=== PATIENT | male | born 1945 | race Caucasian/White ===

== ENCOUNTER 2021-08-17 17:52 | Observation (INO) | payer MEDICARE ==
[2021-08-17] MEDS ORDERED: DUONEB 0.5-3 MG/3 ml Neb IH ONE ×2 (18:37→18:54)
--- NOTE | 2021-08-17 19:03 | ERPHSYRPT ---
- History of Present Illness Time Seen by Provider: 08/17/21 17:58 Source: patient Exam Limitations: no limitations Patient Subjective Stated Complaint: pt co gradual sob for last 2 days, he has surgery on monday for right total knee. Triage Nursing Assessment: pt alert, arrived oer wc, resp labored with excertion, face mask in place, has strei strips to right right incsion well approximated no reddness , has swelling and brusisng to right knee, Physician History: 75 years old male with history of heart transplant, pacemaker placement, right TKA almost 10 days ago on Xarelto presented to the ER with increasing difficulty breathing for the last 2 days especially with activity and to some extent even fasting. Complaining of generalized chest tightness without any pain. Has minimal nonproductive cough. Also reports 8 to 10 pound weight gain in the last week and a half despite taking Lasix. Patient also has been doing exercise and complaint of pain and soreness in the right lower extremity but denies any worsening of swelling but what he has since surgery. He is on Xarelto almost total knee arthroplasty No fever or chills reported. Timing/Duration: day(s) (2), gradual onset, worse Activities at Onset: activity Severity of Dyspnea-Max: moderate Severity of Dyspnea-Current: moderate Possible Cause: unknown cause Modifying Factors: Improves With: rest. Worsens With: coughing, deep breath, exertion Associated Symptoms: cough, wheezing, weakness, leg swelling, painful breathing, tightness, No chest pain/discomfort Allergies/Adverse Reactions: No Known Drug Allergies Allergy (Unverified 08/17/21 18:04) Home Medications: Atorvastatin Calcium 1 ea DAILY 08/17/21 [History] Carvedilol 6.25 mg [Coreg 6.25 MG] 1 ea DAILY 08/17/21 [History] Docusate Sodium 100 mg [Colace 100 MG] 1 ea DAILY 08/17/21 [History] Ferrous Sulfate 1 ea DAILY 08/17/21 [History] Gabapentin 300 mg [Neurontin 300 mg] 1 ea BID 08/17/21 [History] Hydrocodone/Acetaminophen [Hydrocodone-Acetamin 10-325 mg] 1 ea DAILY 08/17/21 [History] Mycophenolate Mofetil [Cellcept] 1 ea DAILY 08/17/21 [History] Oxycodone HCl [Oxycodone HCl ER] 1 ea TID 08/17/21 [History] Prednisone 5 mg [Deltasone 5 mg] 1 ea DAILY 08/17/21 [History] Rivaroxaban 10 mg Tablet [Xarelto 10 mg Tablet] 1 ea DAILY 08/17/21 [History] Sacubitril/Valsartan [Entresto 49 mg-51 mg Tablet] 1 ea DAILY 08/17/21 [History] Hx Influenza Vaccination/Date Given: Yes Hx Pneumococcal Vaccination/Date Given: Yes Immunizations Up to Date: Yes Travel Risk - International Travel Have you traveled outside of the country in past 3 weeks: No - Coronavirus Screening Are you exhibiting any of the following symptoms?: No Close contact with a COVID-19 positive Pt in past 14-21 Days: No - Vaccine Status Have you recieved a Covid-19 vaccination: Yes [employer]: Moderna - Vaccination Dates Date of 2cond Vaccination (if applicable): november 2020 - Review of Systems Constitutional: Fatigue, Weakness Eyes: No Symptoms Ears, Nose, & Throat: No Symptoms Respiratory: Cough, Dyspnea, Dyspnea on Exertion (PUGA) Cardiac: No Symptoms Abdominal/Gastrointestinal: No Symptoms Genitourinary Symptoms: No Symptoms Musculoskeletal: Arthralgias, Joint Pain Skin: No Symptoms Neurological: No Symptoms Psychological: No Symptoms Endocrine: No Symptoms Hematologic/Lymphatic: No Symptoms Immunological/Allergic: No Symptoms - Past Medical History Pertinent Past Medical History: Yes Neurological History: TIA Cardiac History: Coronary Artery Disease, Deep Vein Thrombosis, Myocardial Infarction (ME) Musculoskeletal History: Arthritis GI Medical History: GERD - Past Surgical History Past Surgical History: Yes Cardiac: Pacemaker Gastrointestinal: Cholecystectomy Musculoskeletal: Orthopedic Surgery Other Surgical History: right knee , heart transplant 2008-[facility] - Social History Smoking Status: Former smoker How long have you smoked: 2006 Exposure to second hand smoke: No Drug Use: none Patient Lives Alone: No - Nursing Vital Signs Nursing Vital Signs: Initial Vital Signs Pulse Rate 107 H 08/17/21 17:55 Respiratory Rate 30 H 08/17/21 17:55 Blood Pressure 176/102 08/17/21 17:55 O2 Sat by Pulse Oximetry 94 L 08/17/21 17:55 Pain Scale Pain Intensity 2 - Physical Exam General Appearance: no apparent distress, alert Eye Exam: PERRL/EOMI, eyes nml inspection Ears, Nose, Throat Exam: hearing grossly normal, pharyngeal erythema Neck Exam: normal inspection, supple, full range of motion Respiratory Exam: diminished breath sounds, accessory muscle use, wheezing, No chest tenderness Cardiovascular/Chest Exam: normal heart sounds, regular rate/rhythm, edema Abdominal/Gastrointestinal Exam: soft, normal bowel sounds, No tenderness Extremity Exam: swelling (Right knee total arthroplasty with Steri-Strips well applied. Appropriate tenderness around knee. Minimal tenderness of thigh and no tenderness of calf), joint swelling, No matt's sign Neurologic Exam: alert, oriented x 3, cooperative Skin Exam: normal color SpO2 Interpretation: normal SpO2: 95 O2 Delivery: Room Air - Course EKG Interpreted by Me: RATE, Left Brick Deviation, Non-specific ST Changes, Other (Biventricular paced rhythm) Ordered Tests: Active Orders 24 hr Category Date Time Status Senior Product Development Manager STAT Care 08/17/21 18:38 Active EKG-ER Only STAT Care 08/17/21 18:37 Active CHEST 1 VIEW (PORTABLE) Stat Exams 08/17/21 18:37 Taken BLOOD CULTURE Stat Lab 08/17/21 19:20 Ordered CBC W DIFF Stat Lab 08/17/21 19:20 Completed CMP Stat Lab 08/17/21 19:20 Completed Lactic Acid Stat Lab 08/17/21 18:58 Completed MAGNESIUM Stat Lab 08/17/21 19:20 Completed NT PRO BNP Stat Lab 08/17/21 19:20 Completed TROPONIN Q3H Lab 08/17/21 18:45 Completed TROPONIN Q3H Lab 08/17/21 21:45 Ordered TROPONIN Q3H Lab 08/18/21 00:45 Ordered TROPONIN Q3H Lab 08/18/21 03:45 Ordered TROPONIN Q3H Lab 08/18/21 06:45 Ordered UA W/RFX UR CULTURE Stat Lab 08/17/21 19:17 Completed Respiratory Therapy Assessment DAILY RT 08/17/21 19:03 Active Medication Summary Discontinued Medications Generic Name Dose Route Start Last Admin Trade Name Freq PRN Reason Stop Dose Admin Albuterol/Ipratropium 3 ml 08/17/21 18:37 08/17/21 19:02 Ipratropium/Albuterol Sulfate 3 Ml Ampul.Neb IH 08/17/21 18:38 3 ml STAT ONE Administration Albuterol/Ipratropium Confirm 08/17/21 18:54 Ipratropium/Albuterol Sulfate 3 Ml Ampul.Neb Administered 08/17/21 18:55 Dose 3 ml IH .STK-MED ONE Furosemide 60 mg 08/17/21 21:05 Furosemide 40 Mg/4 Ml Vial IV 08/17/21 21:06 STAT ONE Furosemide Confirm 08/17/21 21:09 Furosemide 40 Mg/4 Ml Vial Administered 08/17/21 21:10 Dose 80 mg .ROUTE .STK-MED ONE Lab/Rad Data: Laboratory Result Diagrams 08/17/21 19:20 08/17/21 19:20 Laboratory Results 08/17/21 08/17/21 08/17/21 Range/Units 19:20 19:20 19:17 WBC 9.7 (4.0-10.5) K/mm3 RBC 3.86 L (4.1-5.6) M/mm3 Hgb 10.6 L (12.5-18.0) gm/dl Hct 34.0 L (42-50) % MCV 88.1 (78-100) fl MCH 27.5 (26-32) pg MCHC 31.2 L (32-36) g/dl RDW 16.2 H (11.5-14.0) % Plt Count 299 (150-450) K/mm3 MPV 9.4 (7.5-11.0) fl Gran % 75.9 H (36.0-66.0) % Eos # (Auto) 0.07 (0-0.5) Absolute Lymphs (auto) 1.15 (1.0-4.6) Absolute Monos (auto) 1.10 (0.0-1.3) Lymphocytes % 11.9 L (24.0-44.0) % Monocytes % 11.4 (0.0-12.0) % Eosinophils % 0.7 (0.00-5.0) % Basophils % 0.1 (0.0-0.4) % Absolute Granulocytes 7.33 H (1.4-6.9) Basophils # 0.01 (0-0.4) Sodium 134 L (137-145) mmol/L Potassium 4.8 (3.5-5.1) mmol/L Chloride 98 (98-107) mmol/L Carbon Dioxide 29 (22-30) mmol/L Anion Gap 11.9 (5-15) MEQ/L BUN 23 H (9-20) mg/dL Creatinine 1.34 H (0.66-1.25) mg/dL Estimated GFR 55.4 ML/MIN Glucose 103 (74-106) mg/dL Lactic Acid (0.4-2.0) Calcium 8.6 (8.4-10.2) mg/dL Magnesium 1.4 L (1.6-2.3) mg/dL Total Bilirubin 0.90 (0.2-1.3) mg/dL AST 22 (17-59) U/L ALT 22 (0-50) U/L Alkaline Phosphatase 189 H (38-126) U/L Troponin I (0.000-0.034) ng/mL NT-Pro-B Natriuret Pep 11749 H (0-900) pg/mL Serum Total Protein 5.8 L (6.3-8.2) g/dL Albumin 3.3 L (3.5-5.0) g/dL Urine Color YELLOW (YELLOW) Urine Appearance CLEAR (CLEAR) Urine pH 7.0 (5-6) Ur Specific [place] 1.009 (1.005-1.025) Urine Protein NEGATIVE (Negative) Urine Ketones NEGATIVE (NEGATIVE) Urine Blood SMALL (0-5) Be/ul Urine Nitrite NEGATIVE (NEGATIVE) Urine Bilirubin NEGATIVE (NEGATIVE) Urine Urobilinogen NEGATIVE (0-1) mg/dL Ur Leukocyte Esterase NEGATIVE (NEGATIVE) Urine WBC (Auto) NONE (0-5) /HPF Urine RBC (Auto) 0-2 (0-2) /HPF U Epithel Cells (Auto) NONE (FEW) /HPF Urine Bacteria (Auto) NONE (NEGATIVE) /HPF Urine Culture Reflexed NO (NO) Urine Glucose NEGATIVE (NEGATIVE) mg/dL 08/17/21 08/17/21 Range/Units 18:58 18:45 WBC (4.0-10.5) K/mm3 RBC (4.1-5.6) M/mm3 Hgb (12.5-18.0) gm/dl Hct (42-50) % MCV (78-100) fl MCH (26-32) pg MCHC (32-36) g/dl RDW (11.5-14.0) % Plt Count (150-450) K/mm3 MPV (7.5-11.0) fl Gran % (36.0-66.0) % Eos # (Auto) (0-0.5) Absolute Lymphs (auto) (1.0-4.6) Absolute Monos (auto) (0.0-1.3) Lymphocytes % (24.0-44.0) % Monocytes % (0.0-12.0) % Eosinophils % (0.00-5.0) % Basophils % (0.0-0.4) % Absolute Granulocytes (1.4-6.9) Basophils # (0-0.4) Sodium (137-145) mmol/L Potassium (3.5-5.1) mmol/L Chloride (98-107) mmol/L Carbon Dioxide (22-30) mmol/L Anion Gap (5-15) MEQ/L BUN (9-20) mg/dL Creatinine (0.66-1.25) mg/dL Estimated GFR ML/MIN Glucose (74-106) mg/dL Lactic Acid 0.7 (0.4-2.0) Calcium (8.4-10.2) mg/dL Magnesium (1.6-2.3) mg/dL Total Bilirubin (0.2-1.3) mg/dL AST (17-59) U/L ALT (0-50) U/L Alkaline Phosphatase (38-126) U/L Troponin I < 0.012 (0.000-0.034) ng/mL NT-Pro-B Natriuret Pep (0-900) pg/mL Serum Total Protein (6.3-8.2) g/dL Albumin (3.5-5.0) g/dL Urine Color (YELLOW) Urine Appearance (CLEAR) Urine pH (5-6) Ur Specific [place] (1.005-1.025) Urine Protein (Negative) Urine Ketones (NEGATIVE) Urine Blood (0-5) Be/ul Urine Nitrite (NEGATIVE) Urine Bilirubin (NEGATIVE) Urine Urobilinogen (0-1) mg/dL Ur Leukocyte Esterase (NEGATIVE) Urine WBC (Auto) (0-5) /HPF Urine RBC (Auto) (0-2) /HPF U Epithel Cells (Auto) (FEW) /HPF Urine Bacteria (Auto) (NEGATIVE) /HPF Urine Culture Reflexed (NO) Urine Glucose (NEGATIVE) mg/dL - Progress Progress: improved Air Movement: good Progress Note: 08/17/21 21:47 75 years old is evaluated for increasing shortness of breath lately and weight gain. Patient was tachypneic with some wheezing and crackles on presentation, given breathing treatment and Lasix, on reevaluation feeling much better. Chest x-ray showed some congestion but no acute infiltrative process per preliminary report. EKG showed paced rhythm and initial troponins are negative but has markedly elevated BNP. I believe patient is volume overloaded, I have discussed with Dr. Guzman at cardiac transplant team, reviewed history, work-up, recommended diuresing overnight and reevaluation in the morning and if patient f eeling better can be discharged and they will arrange prompt outpatient follow- up. Patient is taking Xarelto as scheduled and I believe shortness of breath is more of a CHF exacerbation not PE. We will continue with Xarelto. Discussed with Dr. Mendez, reviewed history, work-up in ICU transplant team recommendation and patient is accepted for admission. Blood Culture(s) Obtained: No Antibiotics given: No Discussed with : Freddy, Other ([facility] transplant) Will see patient in: hospital (observation) Counseled pt/family regarding: lab results, diagnosis, rad results - Departure Departure Disposition: Observation Clinical Impression: Acute exacerbation of CHF (congestive heart failure) Condition: Stable Critical Care Time: No Referrals: Provider,Unknown [Primary Care Provider] - Follow up/PCP as directed Instructions: Heart Failure
[2021-08-17 19:29] LABS: Absolute Neutrophil Ct (ANC) 7.33 (1.4-6.9); BASOPHIL % 0.1 % (0.0-0.4); Basophil (Absolute #) 0.01 (0-0.4); Eosinophil % 0.7 % (0.00-5.0); Eosinophil (Absolute #) 0.07 (0-0.5); Hemoglobin 10.6 gm/dl (12.5-18.0); Lymphocyte (Absolute #) 1.15 (1.0-4.6); Lymphocytes % 11.9 % (24.0-44.0); Mean Cell Volume 88.1 fl (78-100); Mean Corpuscular Hemoglobin 27.5 pg (26-32); Mean Corpuscular Hgb Concent. 31.2 g/dl (32-36); Mean Platelet Volume 9.4 fl (7.5-11.0); Monocytes % 11.4 % (0.0-12.0); Neutrophil % 75.9 % (36.0-66.0); Platelet Count 299 K/mm3 (150-450); Red Blood Count 3.86 M/mm3 (4.1-5.6); Red Cell Distribution Width 16.2 % (11.5-14.0); White Blood Count 9.7 K/mm3 (4.0-10.5)
[2021-08-17 19:37] LABS: Appearance CLEAR (CLEAR); Bilirubin NEGATIVE (NEGATIVE); Blood SMALL Ery/ul (0-5); Glucose NEGATIVE (NEGATIVE); Ketones NEGATIVE (NEGATIVE); Leukocyte Esterase NEGATIVE (NEGATIVE); Nitrite NEGATIVE (NEGATIVE); Protein,Urine Dip NEGATIVE (Negative); RBC 0-2 /HPF (0-2); Specific Gravity 1.009 (1.005-1.025); Urobilinogen NEGATIVE mg/dL (0-1)
[2021-08-17 20:04] LABS: ALBUMIN 3.3 g/dL (3.5-5.0); ANION GAP 11.9 MEQ/L (5-15); BILIRUBIN,TOTAL 0.9 mg/dL (0.2-1.3); Calcium 8.6 mg/dL (8.4-10.2); Creatinine 1 1.34 mg/dL (0.66-1.25); EST GLOMERULAR FILTRATION RATE 55.4 ML/MIN; MAGNESIUM 1.4 mg/dL (1.6-2.3); Potassium 4.8 mmol/L (3.5-5.1); Total Protein 5.8 g/dL (6.3-8.2)
[2021-08-17] MEDS ORDERED: Lasix 40 MG/4 ML IV ONE (21:05)
[2021-08-17] MEDS ORDERED: Lasix 40 MG/4 ML ONE (21:09)
[2021-08-17 23:13] LABS: INFLUENZA A NEGATIVE (NEGATIVE); INFLUENZA B NEGATIVE (NEGATIVE); RESPIRATORY SYNCTIAL VIRUS NEGATIVE (Negative); SARS-CoV-2 Xpert Express NEGATIVE (NEGATIVE)
[2021-08-18] MEDS ORDERED: Lasix 40 MG/4 ML IV SCH ×2 (01:13→10:00)
[2021-08-18] MEDS ORDERED: Zofran 4 MG/2 ML VIAL IV PRN (01:13)
[2021-08-18] MEDS ORDERED: DUONEB 0.5-3 MG/3 ml Neb IH SCH (01:13)
[2021-08-18] MEDS ORDERED: MORPHINE SULFATE 2 MG INJ IV PRN (01:13)
[2021-08-18] MEDS: TYLENOL 325 MG PO PRN ×2 (02:22→07:44)
[2021-08-18 05:03] LABS: ALBUMIN 3.3 g/dL (3.5-5.0); ANION GAP 13.1 MEQ/L (5-15); BILIRUBIN,TOTAL 1.2 mg/dL (0.2-1.3); Calcium 8.5 mg/dL (8.4-10.2); Creatinine 1 1.35 mg/dL (0.66-1.25); EST GLOMERULAR FILTRATION RATE 54.9 ML/MIN; Potassium 4.1 mmol/L (3.5-5.1); Total Protein 5.9 g/dL (6.3-8.2)
[2021-08-18 05:07] LABS: Absolute Neutrophil Ct (ANC) 7.91 (1.4-6.9); BASOPHIL % 0.2 % (0.0-0.4); Basophil (Absolute #) 0.02 (0-0.4); Eosinophil % 1.1 % (0.00-5.0); Eosinophil (Absolute #) 0.11 (0-0.5); Hematocrit 34.8 % (42-50); Lymphocyte (Absolute #) 1.12 (1.0-4.6); Lymphocytes % 10.8 % (24.0-44.0); Mean Cell Volume 87.2 fl (78-100); Mean Corpuscular Hemoglobin 27.6 pg (26-32); Mean Corpuscular Hgb Concent. 31.6 g/dl (32-36); Mean Platelet Volume 9.4 fl (7.5-11.0); Monocyte (Absolute #) 1.21 (0.0-1.3); Monocytes % 11.7 % (0.0-12.0); Neutrophil % 76.2 % (36.0-66.0); Platelet Count 329 K/mm3 (150-450); Red Blood Count 3.99 M/mm3 (4.1-5.6); Red Cell Distribution Width 16.3 % (11.5-14.0); White Blood Count 10.4 K/mm3 (4.0-10.5)
[2021-08-18 05:15] LABS: NT PRO BNP 16300 pg/mL (0-900); TROPONIN < 0.012 ng/mL (0.000-0.034)
--- NOTE | 2021-08-18 08:42 | XRAY ---
Indication: Short of breath and weakness 3 days. Comparison: May 23, 2011. Portable chest demonstrates new right AICD partially obscuring underlying lung. Stable COPD, tiny left lung calcified granuloma, and CABG. Remaining heart and lungs unremarkable. Bony thorax intact again with osteopenia, degenerative changes, and old left 9 rib fracture.
--- NOTE | 2021-08-18 08:52 | PCM.SSS ---
History of Present Illness - Chief Complaint Chief Complaint: CHF History of Present Illness: is a 75 year old male pt of Dr. Valentino in [place] with PMHx heart transplant due to CAD and pacemaker who was admitted last night for CHF exacerbation. Pt had R total knee replacement [address] Coe at the [facility] and he says his breathing has been worse ever since. In the ER last night he complained of 2d of gradually worsening shortness of breath, with chest tightness and minimal cough. He c/o 8-10 lb weight gain recently despite po lasix. He denied any increase in edema of the R leg. Has been on xarelto since the surgery. He was given IV lasix 40mg in the ER and has it scheduled BID. Dr. Thomason in ER spoke wiht Dr. Guzman [facility], and since there were no beds in [place] or at [facility], it was determined that the pt would stay here, diurese overnight, re-evaluate in the morning and check in with the transplant center again about close outpatient follow up (if pt feeling better). Pt's BNP was 16,100 on admission and is 16,300 this morning. WBC 10.4, Hgb 11.0, Plt 329. UA nl. His sodium is 133, was 134 at admission. potassium 4.1. His magnesium was 1.4 last night so that is pending this morning. eGFR is 54.9 this morning (was 55.4 at admission). Troponins have been negative x 4. Pt does feel better this morning, although not quite back to baseline. Denies chest tightness. He is not short of breath at rest or when up to the bathroom, but with bending or any exertion. Before his surgery, he could do yardwork albeit at an easy pace but without any shortness of breath. I have called the cardiac transplant team and am awaiting a callback from Dr. Christine Abel. If he agrees with discharging the pt to home, will discharge today with followup per transplant team. - Review of Systems Constitutional: Weakness (with doing knee exercises) Respiratory: Cough, Short Of Breath Cardiac: Chest Pain (resolved), Edema (improved on RLE) Abdominal/Gastrointestinal: Appetite Changes (decreased po intake), Other (heartburn since surgery 11d ago) All Other Systems: Reviewed and Negative Medications & Allergies Home Medications: Home Medication List Carvedilol 6.25 mg [Coreg 6.25 MG] 6.25 mg PO BID 08/17/21 [History Confirmed 08/18/21] Docusate Sodium 100 mg [Colace 100 MG] 100 mg PO DAILY 08/17/21 [History Confirmed 08/18/21] Ferrous Sulfate 325 mg PO DAILY 08/17/21 [History Confirmed 08/18/21] Gabapentin 300 mg [Neurontin 300 mg] 300 mg PO BID 08/17/21 [History Confirmed 08/18/21] Hydrocodone/Acetaminophen [Hydrocodone-Acetamin 10-325 mg] 1 - 2 tab PO Q6HPRN PRN 08/17/21 [History Confirmed 08/18/21] Mycophenolate Mofetil [Cellcept] 250 mg BID 08/17/21 [History Confirmed 08/18/21] Oxycodone HCl [Oxycodone HCl ER] 1 tab PO Q8HPRN PRN 08/17/21 [History Confirmed 08/18/21] Prednisone 5 mg [Deltasone 5 mg] 5 mg PO DAILY 08/17/21 [History Confirmed 08/18/21] Rivaroxaban 10 mg Tablet [Xarelto 10 mg Tablet] 10 mg PO DAILY 08/17/21 [History Confirmed 08/18/21] Sacubitril/Valsartan [Entresto 49 mg-51 mg Tablet] 1 tab PO BID 08/17/21 [History Confirmed 08/18/21] Allergies/Adverse Reactions: Allergies Allergy/AdvReac Type Severity Reaction Status Date / Time No Known Drug Allergies Allergy Unverified 08/17/21 18:04 - Past Medical History Past Medical History: Yes Neurological History: TIA ENT History: Cataracts Cardiac History: Arrhythmia, Congestive Heart Failure, Coronary Artery Disease, Deep Vein Thrombosis, Myocardial Infarction (CA) Respiratory History: CHF, COPD Endocrine Medical History: No Pertinent History Musculoskelatal History: Arthritis GI Medical History: GERD, Irritable Bowel History: No Pertinent History Pyscho-Social History: No Pertinent History - Past Surgical History Past Surgical History: Yes Neuro Surgical History: No Pertinent History Cardiac History: Internal Defibrillator, Pacemaker, Other Respiratory Surgery: No Pertinent History GI Surgical History: Cholecystectomy Genitourinary Surgical Hx: No Pertinent History Musculskeletal Surgical Hx: Orthopedic Surgery Male Surgical History: No Pertinent History Other Surgical History: right knee total replacement Aug 2021, Left knee replacement 2016, heart transplant 2007-[facility]. Right hip replaced 2017 - Social History Smoking Status: Former smoker How long have you smoked: 2006 Exposure to second hand smoke: No Alcohol: Rarely Drug Use: none - Physical Exam Vital Signs: Vital Signs - 24 hr Temp Pulse Resp BP Pulse Ox 08/18/21 07:42 97.5 F 93 H 18 155/81 91 L 08/18/21 04:00 97.7 F 96 H 16 159/78 95 08/18/21 01:51 98.6 F 96 H 17 177/90 95 08/18/21 00:12 97 H 16 186/113 96 08/17/21 21:50 95 08/17/21 21:07 96 H 18 177/99 97 08/17/21 19:30 91 H 18 182/105 95 08/17/21 19:04 89 20 97 08/17/21 18:53 88 18 180/103 95 08/17/21 17:55 107 H 30 H 176/102 94 L General Appearance: no apparent distress, obese Neurologic Exam: alert, oriented x 3, cooperative Eye Exam: eyes nml inspection Ears, Nose, Throat Exam: moist mucous membranes Neck Exam: normal inspection, non-tender, No lymphadenopathy Respiratory Exam: normal breath sounds, lungs clear, No crackles/rales, No rhonchi, No wheezing Cardiovascular Exam: regular rate/rhythm, No normal heart sounds (distant), No murmur Gastrointestinal/Abdomen Exam: soft, normal bowel sounds, No tenderness, No distention, No mass, No guarding, No rebound Extremity Exam: swelling (R knee; midline wound is well approximated and healing, w/o erythema or exudate. steri strips in place. inferior to knee there is scattere bruising) Skin Exam: warm, dry, No rash Results - Labs Lab/Micro Results: Lab Results-Last 24 Hours 08/17/21 08/17/21 08/17/21 Range/Units 18:45 18:58 19:17 WBC (4.0-10.5) K/mm3 RBC (4.1-5.6) M/mm3 Hgb (12.5-18.0) gm/dl Hct (42-50) % MCV (78-100) fl MCH (26-32) pg MCHC (32-36) g/dl RDW (11.5-14.0) % Plt Count (150-450) K/mm3 MPV (7.5-11.0) fl Gran % (36.0-66.0) % Eos # (Auto) (0-0.5) Absolute Lymphs (auto) (1.0-4.6) Absolute Monos (auto) (0.0-1.3) Lymphocytes % (24.0-44.0) % Monocytes % (0.0-12.0) % Eosinophils % (0.00-5.0) % Basophils % (0.0-0.4) % Absolute Granulocytes (1.4-6.9) Basophils # (0-0.4) Sodium (137-145) mmol/L Potassium (3.5-5.1) mmol/L Chloride (98-107) mmol/L Carbon Dioxide (22-30) mmol/L Anion Gap (5-15) MEQ/L BUN (9-20) mg/dL Creatinine (0.66-1.25) mg/dL Estimated GFR ML/MIN Glucose (74-106) mg/dL Lactic Acid 0.7 (0.4-2.0) Calcium (8.4-10.2) mg/dL Magnesium (1.6-2.3) mg/dL Total Bilirubin (0.2-1.3) mg/dL AST (17-59) U/L ALT (0-50) U/L Alkaline Phosphatase (38-126) U/L Troponin I < 0.012 (0.000-0.034) ng/mL NT-Pro-B Natriuret Pep (0-900) pg/mL Serum Total Protein (6.3-8.2) g/dL Albumin (3.5-5.0) g/dL Urine Color YELLOW (YELLOW) Urine Appearance CLEAR (CLEAR) Urine pH 7.0 (5-6) Ur Specific [place] 1.009 (1.005-1.025) Urine Protein NEGATIVE (Negative) Urine Ketones NEGATIVE (NEGATIVE) Urine Blood SMALL (0-5) Be/ul Urine Nitrite NEGATIVE (NEGATIVE) Urine Bilirubin NEGATIVE (NEGATIVE) Urine Urobilinogen NEGATIVE (0-1) mg/dL Ur Leukocyte Esterase NEGATIVE (NEGATIVE) Urine WBC (Auto) NONE (0-5) /HPF Urine RBC (Auto) 0-2 (0-2) /HPF U Epithel Cells (Auto) NONE (FEW) /HPF Urine Bacteria (Auto) NONE (NEGATIVE) /HPF Urine Culture Reflexed NO (NO) Urine Glucose NEGATIVE (NEGATIVE) mg/dL Influenza Type A Ag (NEGATIVE) Influenza Type B Ag (NEGATIVE) RSV (PCR) (Negative) SARS-CoV-2 (PCR) (NEGATIVE) 08/17/21 08/17/21 08/17/21 Range/Units 19:20 19:20 21:49 WBC 9.7 (4.0-10.5) K/mm3 RBC 3.86 L (4.1-5.6) M/mm3 Hgb 10.6 L (12.5-18.0) gm/dl Hct 34.0 L (42-50) % MCV 88.1 (78-100) fl MCH 27.5 (26-32) pg MCHC 31.2 L (32-36) g/dl RDW 16.2 H (11.5-14.0) % Plt Count 299 (150-450) K/mm3 MPV 9.4 (7.5-11.0) fl Gran % 75.9 H (36.0-66.0) % Eos # (Auto) 0.07 (0-0.5) Absolute Lymphs (auto) 1.15 (1.0-4.6) Absolute Monos (auto) 1.10 (0.0-1.3) Lymphocytes % 11.9 L (24.0-44.0) % Monocytes % 11.4 (0.0-12.0) % Eosinophils % 0.7 (0.00-5.0) % Basophils % 0.1 (0.0-0.4) % Absolute Granulocytes 7.33 H (1.4-6.9) Basophils # 0.01 (0-0.4) Sodium 134 L (137-145) mmol/L Potassium 4.8 (3.5-5.1) mmol/L Chloride 98 (98-107) mmol/L Carbon Dioxide 29 (22-30) mmol/L Anion Gap 11.9 (5-15) MEQ/L BUN 23 H (9-20) mg/dL Creatinine 1.34 H (0.66-1.25) mg/dL Estimated GFR 55.4 ML/MIN Glucose 103 (74-106) mg/dL Lactic Acid (0.4-2.0) Calcium 8.6 (8.4-10.2) mg/dL Magnesium 1.4 L (1.6-2.3) mg/dL Total Bilirubin 0.90 (0.2-1.3) mg/dL AST 22 (17-59) U/L ALT 22 (0-50) U/L Alkaline Phosphatase 189 H (38-126) U/L Troponin I < 0.012 (0.000-0.034) ng/mL NT-Pro-B Natriuret Pep 69193 H (0-900) pg/mL Serum Total Protein 5.8 L (6.3-8.2) g/dL Albumin 3.3 L (3.5-5.0) g/dL Urine Color (YELLOW) Urine Appearance (CLEAR) Urine pH (5-6) Ur Specific [place] (1.005-1.025) Urine Protein (Negative) Urine Ketones (NEGATIVE) Urine Blood (0-5) Be/ul Urine Nitrite (NEGATIVE) Urine Bilirubin (NEGATIVE) Urine Urobilinogen (0-1) mg/dL Ur Leukocyte Esterase (NEGATIVE) Urine WBC (Auto) (0-5) /HPF Urine RBC (Auto) (0-2) /HPF U Epithel Cells (Auto) (FEW) /HPF Urine Bacteria (Auto) (NEGATIVE) /HPF Urine Culture Reflexed (NO) Urine Glucose (NEGATIVE) mg/dL Influenza Type A Ag (NEGATIVE) Influenza Type B Ag (NEGATIVE) RSV (PCR) (Negative) SARS-CoV-2 (PCR) (NEGATIVE) 08/17/21 08/18/21 08/18/21 Range/Units 22:31 00:53 04:20 WBC (4.0-10.5) K/mm3 RBC (4.1-5.6) M/mm3 Hgb (12.5-18.0) gm/dl Hct (42-50) % MCV (78-100) fl MCH (26-32) pg MCHC (32-36) g/dl RDW (11.5-14.0) % Plt Count (150-450) K/mm3 MPV (7.5-11.0) fl Gran % (36.0-66.0) % Eos # (Auto) (0-0.5) Absolute Lymphs (auto) (1.0-4.6) Absolute Monos (auto) (0.0-1.3) Lymphocytes % (24.0-44.0) % Monocytes % (0.0-12.0) % Eosinophils % (0.00-5.0) % Basophils % (0.0-0.4) % Absolute Granulocytes (1.4-6.9) Basophils # (0-0.4) Sodium (137-145) mmol/L Potassium (3.5-5.1) mmol/L Chloride (98-107) mmol/L Carbon Dioxide (22-30) mmol/L Anion Gap (5-15) MEQ/L BUN (9-20) mg/dL Creatinine (0.66-1.25) mg/dL Estimated GFR ML/MIN Glucose (74-106) mg/dL Lactic Acid (0.4-2.0) Calcium (8.4-10.2) mg/dL Magnesium (1.6-2.3) mg/dL Total Bilirubin (0.2-1.3) mg/dL AST (17-59) U/L ALT (0-50) U/L Alkaline Phosphatase (38-126) U/L Troponin I < 0.012 < 0.012 (0.000-0.034) ng/mL NT-Pro-B Natriuret Pep 65449 H (0-900) pg/mL Serum Total Protein (6.3-8.2) g/dL Albumin (3.5-5.0) g/dL Urine Color (YELLOW) Urine Appearance (CLEAR) Urine pH (5-6) Ur Specific [place] (1.005-1.025) Urine Protein (Negative) Urine Ketones (NEGATIVE) Urine Blood (0-5) Be/ul Urine Nitrite (NEGATIVE) Urine Bilirubin (NEGATIVE) Urine Urobilinogen (0-1) mg/dL Ur Leukocyte Esterase (NEGATIVE) Urine WBC (Auto) (0-5) /HPF Urine RBC (Auto) (0-2) /HPF U Epithel Cells (Auto) (FEW) /HPF Urine Bacteria (Auto) (NEGATIVE) /HPF Urine Culture Reflexed (NO) Urine Glucose (NEGATIVE) mg/dL Influenza Type A Ag NEGATIVE (NEGATIVE) Influenza Type B Ag NEGATIVE (NEGATIVE) RSV (PCR) NEGATIVE (Negative) SARS-CoV-2 (PCR) NEGATIVE (NEGATIVE) 08/18/21 08/18/21 Range/Units 04:20 04:20 WBC 10.4 (4.0-10.5) K/mm3 RBC 3.99 L (4.1-5.6) M/mm3 Hgb 11.0 L (12.5-18.0) gm/dl Hct 34.8 L (42-50) % MCV 87.2 (78-100) fl MCH 27.6 (26-32) pg MCHC 31.6 L (32-36) g/dl RDW 16.3 H (11.5-14.0) % Plt Count 329 (150-450) K/mm3 MPV 9.4 (7.5-11.0) fl Gran % 76.2 H (36.0-66.0) % Eos # (Auto) 0.11 (0-0.5) Absolute Lymphs (auto) 1.12 (1.0-4.6) Absolute Monos (auto) 1.21 (0.0-1.3) Lymphocytes % 10.8 L (24.0-44.0) % Monocytes % 11.7 (0.0-12.0) % Eosinophils % 1.1 (0.00-5.0) % Basophils % 0.2 (0.0-0.4) % Absolute Granulocytes 7.91 H (1.4-6.9) Basophils # 0.02 (0-0.4) Sodium 133 L (137-145) mmol/L Potassium 4.1 (3.5-5.1) mmol/L Chloride 96 L (98-107) mmol/L Carbon Dioxide 28 (22-30) mmol/L Anion Gap 13.1 (5-15) MEQ/L BUN 22 H (9-20) mg/dL Creatinine 1.35 H (0.66-1.25) mg/dL Estimated GFR 54.9 ML/MIN Glucose 93 (74-106) mg/dL Lactic Acid (0.4-2.0) Calcium 8.5 (8.4-10.2) mg/dL Magnesium (1.6-2.3) mg/dL Total Bilirubin 1.20 (0.2-1.3) mg/dL AST 24 (17-59) U/L ALT 23 (0-50) U/L Alkaline Phosphatase 193 H (38-126) U/L Troponin I (0.000-0.034) ng/mL NT-Pro-B Natriuret Pep (0-900) pg/mL Serum Total Protein 5.9 L (6.3-8.2) g/dL Albumin 3.3 L (3.5-5.0) g/dL Urine Color (YELLOW) Urine Appearance (CLEAR) Urine pH (5-6) Ur Specific [place] (1.005-1.025) Urine Protein (Negative) Urine Ketones (NEGATIVE) Urine Blood (0-5) Be/ul Urine Nitrite (NEGATIVE) Urine Bilirubin (NEGATIVE) Urine Urobilinogen (0-1) mg/dL Ur Leukocyte Esterase (NEGATIVE) Urine WBC (Auto) (0-5) /HPF Urine RBC (Auto) (0-2) /HPF U Epithel Cells (Auto) (FEW) /HPF Urine Bacteria (Auto) (NEGATIVE) /HPF Urine Culture Reflexed (NO) Urine Glucose (NEGATIVE) mg/dL Influenza Type A Ag (NEGATIVE) Influenza Type B Ag (NEGATIVE) RSV (PCR) (Negative) SARS-CoV-2 (PCR) (NEGATIVE) - Radiology Impressions Radiology Exams & Impressions: Radiology Procedures Category Date Time Status CHEST 1 VIEW (PORTABLE) Stat Exams 08/17/21 18:37 Completed Assessment/Plan (1) Acute exacerbation of CHF (congestive heart failure) Current Visit: Yes Status: Acute Qualifiers: Heart failure type: unspecified Qualified Code(s): I50.9 - Heart failure, unspecified Assessment & Plan: Doing better after diuresing; not back to pre-surgical baseline. Will discuss with transplant surgeon and await guidance on further diuresis vs sending pt home with close outpatient followup with them. Code(s): I50.9 - HEART FAILURE, UNSPECIFIED (2) Status post total knee replacement, right Current Visit: Yes Status: Acute Assessment & Plan: Pt is 11d post op, on xarelto, seems stable Code(s): Z96.651 - PRESENCE OF RIGHT ARTIFICIAL KNEE JOINT (3) CAD (coronary artery disease) Current Visit: Yes Status: Chronic Qualifiers: [place] vs. transplanted heart: transplanted heart Associated angina: without angina Code(s): I25.10 - ATHSCL HEART DISEASE OF [place] CORONARY ARTERY W/O ANG PCTRS (4) Pacemaker Current Visit: Yes Status: Chronic Code(s): Z95.0 - PRESENCE OF CARDIAC PACEMAKER Hospital Summary - Hospital Course Hospital Course: Pt is 75 yo male with hx CAD and heart transplant, admitted for CHF exacerbation 10d s/p R total knee replacement. On xarelto. He was given 40mg IV lasix in ER and diuresed well overnight; feeling better although not back to his pre- surgical baseline. Case was discussed with transplant team at admission, and I am awaiting call from transplant team this morning to discuss disposition. - Vitals & Intake/Output Vital Signs: Vital Signs Temperature 97.5 F 08/18/21 07:42 Pulse Rate 93 H 08/18/21 07:42 Respiratory Rate 18 08/18/21 07:42 Blood Pressure 155/81 08/18/21 07:42 O2 Sat by Pulse Oximetry 91 L 08/18/21 07:42 Intake & Output: Intake & Output 08/15/21 08/16/21 08/17/21 08/18/21 11:59 11:59 11:59 11:59 Intake Total 260 Output Total 850 Balance -590 Weight 114.1 kg - Lab Result Diagrams: 08/18/21 04:20 08/18/21 04:20 Lab Results-Last 24 Hrs: Lab Results-Last 24 Hours 08/17/21 08/17/21 08/17/21 Range/Units 18:45 18:58 19:17 WBC (4.0-10.5) K/mm3 RBC (4.1-5.6) M/mm3 Hgb (12.5-18.0) gm/dl Hct (42-50) % MCV (78-100) fl MCH (26-32) pg MCHC (32-36) g/dl RDW (11.5-14.0) % Plt Count (150-450) K/mm3 MPV (7.5-11.0) fl Gran % (36.0-66.0) % Eos # (Auto) (0-0.5) Absolute Lymphs (auto) (1.0-4.6) Absolute Monos (auto) (0.0-1.3) Lymphocytes % (24.0-44.0) % Monocytes % (0.0-12.0) % Eosinophils % (0.00-5.0) % Basophils % (0.0-0.4) % Absolute Granulocytes (1.4-6.9) Basophils # (0-0.4) Sodium (137-145) mmol/L Potassium (3.5-5.1) mmol/L Chloride (98-107) mmol/L Carbon Dioxide (22-30) mmol/L Anion Gap (5-15) MEQ/L BUN (9-20) mg/dL Creatinine (0.66-1.25) mg/dL Estimated GFR ML/MIN Glucose (74-106) mg/dL Lactic Acid 0.7 (0.4-2.0) Calcium (8.4-10.2) mg/dL Magnesium (1.6-2.3) mg/dL Total Bilirubin (0.2-1.3) mg/dL AST (17-59) U/L ALT (0-50) U/L Alkaline Phosphatase (38-126) U/L Troponin I < 0.012 (0.000-0.034) ng/mL NT-Pro-B Natriuret Pep (0-900) pg/mL Serum Total Protein (6.3-8.2) g/dL Albumin (3.5-5.0) g/dL Urine Color YELLOW (YELLOW) Urine Appearance CLEAR (CLEAR) Urine pH 7.0 (5-6) Ur Specific [place] 1.009 (1.005-1.025) Urine Protein NEGATIVE (Negative) Urine Ketones NEGATIVE (NEGATIVE) Urine Blood SMALL (0-5) Be/ul Urine Nitrite NEGATIVE (NEGATIVE) Urine Bilirubin NEGATIVE (NEGATIVE) Urine Urobilinogen NEGATIVE (0-1) mg/dL Ur Leukocyte Esterase NEGATIVE (NEGATIVE) Urine WBC (Auto) NONE (0-5) /HPF Urine RBC (Auto) 0-2 (0-2) /HPF U Epithel Cells (Auto) NONE (FEW) /HPF Urine Bacteria (Auto) NONE (NEGATIVE) /HPF Urine Culture Reflexed NO (NO) Urine Glucose NEGATIVE (NEGATIVE) mg/dL Influenza Type A Ag (NEGATIVE) Influenza Type B Ag (NEGATIVE) RSV (PCR) (Negative) SARS-CoV-2 (PCR) (NEGATIVE) 08/17/21 08/17/21 08/17/21 Range/Units 19:20 19:20 21:49 WBC 9.7 (4.0-10.5) K/mm3 RBC 3.86 L (4.1-5.6) M/mm3 Hgb 10.6 L (12.5-18.0) gm/dl Hct 34.0 L (42-50) % MCV 88.1 (78-100) fl MCH 27.5 (26-32) pg MCHC 31.2 L (32-36) g/dl RDW 16.2 H (11.5-14.0) % Plt Count 299 (150-450) K/mm3 MPV 9.4 (7.5-11.0) fl Gran % 75.9 H (36.0-66.0) % Eos # (Auto) 0.07 (0-0.5) Absolute Lymphs (auto) 1.15 (1.0-4.6) Absolute Monos (auto) 1.10 (0.0-1.3) Lymphocytes % 11.9 L (24.0-44.0) % Monocytes % 11.4 (0.0-12.0) % Eosinophils % 0.7 (0.00-5.0) % Basophils % 0.1 (0.0-0.4) % Absolute Granulocytes 7.33 H (1.4-6.9) Basophils # 0.01 (0-0.4) Sodium 134 L (137-145) mmol/L Potassium 4.8 (3.5-5.1) mmol/L Chloride 98 (98-107) mmol/L Carbon Dioxide 29 (22-30) mmol/L Anion Gap 11.9 (5-15) MEQ/L BUN 23 H (9-20) mg/dL Creatinine 1.34 H (0.66-1.25) mg/dL Estimated GFR 55.4 ML/MIN Glucose 103 (74-106) mg/dL Lactic Acid (0.4-2.0) Calcium 8.6 (8.4-10.2) mg/dL Magnesium 1.4 L (1.6-2.3) mg/dL Total Bilirubin 0.90 (0.2-1.3) mg/dL AST 22 (17-59) U/L ALT 22 (0-50) U/L Alkaline Phosphatase 189 H (38-126) U/L Troponin I < 0.012 (0.000-0.034) ng/mL NT-Pro-B Natriuret Pep 05326 H (0-900) pg/mL Serum Total Protein 5.8 L (6.3-8.2) g/dL Albumin 3.3 L (3.5-5.0) g/dL Urine Color (YELLOW) Urine Appearance (CLEAR) Urine pH (5-6) Ur Specific [place] (1.005-1.025) Urine Protein (Negative) Urine Ketones (NEGATIVE) Urine Blood (0-5) Be/ul Urine Nitrite (NEGATIVE) Urine Bilirubin (NEGATIVE) Urine Urobilinogen (0-1) mg/dL Ur Leukocyte Esterase (NEGATIVE) Urine WBC (Auto) (0-5) /HPF Urine RBC (Auto) (0-2) /HPF U Epithel Cells (Auto) (FEW) /HPF Urine Bacteria (Auto) (NEGATIVE) /HPF Urine Culture Reflexed (NO) Urine Glucose (NEGATIVE) mg/dL Influenza Type A Ag (NEGATIVE) Influenza Type B Ag (NEGATIVE) RSV (PCR) (Negative) SARS-CoV-2 (PCR) (NEGATIVE) 08/17/21 08/18/21 08/18/21 Range/Units 22:31 00:53 04:20 WBC (4.0-10.5) K/mm3 RBC (4.1-5.6) M/mm3 Hgb (12.5-18.0) gm/dl Hct (42-50) % MCV (78-100) fl MCH (26-32) pg MCHC (32-36) g/dl RDW (11.5-14.0) % Plt Count (150-450) K/mm3 MPV (7.5-11.0) fl Gran % (36.0-66.0) % Eos # (Auto) (0-0.5) Absolute Lymphs (auto) (1.0-4.6) Absolute Monos (auto) (0.0-1.3) Lymphocytes % (24.0-44.0) % Monocytes % (0.0-12.0) % Eosinophils % (0.00-5.0) % Basophils % (0.0-0.4) % Absolute Granulocytes (1.4-6.9) Basophils # (0-0.4) Sodium (137-145) mmol/L Potassium (3.5-5.1) mmol/L Chloride (98-107) mmol/L Carbon Dioxide (22-30) mmol/L Anion Gap (5-15) MEQ/L BUN (9-20) mg/dL Creatinine (0.66-1.25) mg/dL Estimated GFR ML/MIN Glucose (74-106) mg/dL Lactic Acid (0.4-2.0) Calcium (8.4-10.2) mg/dL Magnesium (1.6-2.3) mg/dL Total Bilirubin (0.2-1.3) mg/dL AST (17-59) U/L ALT (0-50) U/L Alkaline Phosphatase (38-126) U/L Troponin I < 0.012 < 0.012 (0.000-0.034) ng/mL NT-Pro-B Natriuret Pep 42016 H (0-900) pg/mL Serum Total Protein (6.3-8.2) g/dL Albumin (3.5-5.0) g/dL Urine Color (YELLOW) Urine Appearance (CLEAR) Urine pH (5-6) Ur Specific [place] (1.005-1.025) Urine Protein (Negative) Urine Ketones (NEGATIVE) Urine Blood (0-5) Be/ul Urine Nitrite (NEGATIVE) Urine Bilirubin (NEGATIVE) Urine Urobilinogen (0-1) mg/dL Ur Leukocyte Esterase (NEGATIVE) Urine WBC (Auto) (0-5) /HPF Urine RBC (Auto) (0-2) /HPF U Epithel Cells (Auto) (FEW) /HPF Urine Bacteria (Auto) (NEGATIVE) /HPF Urine Culture Reflexed (NO) Urine Glucose (NEGATIVE) mg/dL Influenza Type A Ag NEGATIVE (NEGATIVE) Influenza Type B Ag NEGATIVE (NEGATIVE) RSV (PCR) NEGATIVE (Negative) SARS-CoV-2 (PCR) NEGATIVE (NEGATIVE) 08/18/21 08/18/21 Range/Units 04:20 04:20 WBC 10.4 (4.0-10.5) K/mm3 RBC 3.99 L (4.1-5.6) M/mm3 Hgb 11.0 L (12.5-18.0) gm/dl Hct 34.8 L (42-50) % MCV 87.2 (78-100) fl MCH 27.6 (26-32) pg MCHC 31.6 L (32-36) g/dl RDW 16.3 H (11.5-14.0) % Plt Count 329 (150-450) K/mm3 MPV 9.4 (7.5-11.0) fl Gran % 76.2 H (36.0-66.0) % Eos # (Auto) 0.11 (0-0.5) Absolute Lymphs (auto) 1.12 (1.0-4.6) Absolute Monos (auto) 1.21 (0.0-1.3) Lymphocytes % 10.8 L (24.0-44.0) % Monocytes % 11.7 (0.0-12.0) % Eosinophils % 1.1 (0.00-5.0) % Basophils % 0.2 (0.0-0.4) % Absolute Granulocytes 7.91 H (1.4-6.9) Basophils # 0.02 (0-0.4) Sodium 133 L (137-145) mmol/L Potassium 4.1 (3.5-5.1) mmol/L Chloride 96 L (98-107) mmol/L Carbon Dioxide 28 (22-30) mmol/L Anion Gap 13.1 (5-15) MEQ/L BUN 22 H (9-20) mg/dL Creatinine 1.35 H (0.66-1.25) mg/dL Estimated GFR 54.9 ML/MIN Glucose 93 (74-106) mg/dL Lactic Acid (0.4-2.0) Calcium 8.5 (8.4-10.2) mg/dL Magnesium (1.6-2.3) mg/dL Total Bilirubin 1.20 (0.2-1.3) mg/dL AST 24 (17-59) U/L ALT 23 (0-50) U/L Alkaline Phosphatase 193 H (38-126) U/L Troponin I (0.000-0.034) ng/mL NT-Pro-B Natriuret Pep (0-900) pg/mL Serum Total Protein 5.9 L (6.3-8.2) g/dL Albumin 3.3 L (3.5-5.0) g/dL Urine Color (YELLOW) Urine Appearance (CLEAR) Urine pH (5-6) Ur Specific [place] (1.005-1.025) Urine Protein (Negative) Urine Ketones (NEGATIVE) Urine Blood (0-5) Be/ul Urine Nitrite (NEGATIVE) Urine Bilirubin (NEGATIVE) Urine Urobilinogen (0-1) mg/dL Ur Leukocyte Esterase (NEGATIVE) Urine WBC (Auto) (0-5) /HPF Urine RBC (Auto) (0-2) /HPF U Epithel Cells (Auto) (FEW) /HPF Urine Bacteria (Auto) (NEGATIVE) /HPF Urine Culture Reflexed (NO) Urine Glucose (NEGATIVE) mg/dL Influenza Type A Ag (NEGATIVE) Influenza Type B Ag (NEGATIVE) RSV (PCR) (Negative) SARS-CoV-2 (PCR) (NEGATIVE) - Radiology Exams Ordered Rad Exams-Entire Visit: Radiology Procedures Category Date Time Status CHEST 1 VIEW (PORTABLE) Stat Exams 08/17/21 18:37 Completed - Procedures and Test Procedures and Tests throughout Hospitalization: Therapy Orders & Screens 08/17/21 19:03 Respiratory Therapy Assessment DAILY Comment: - Discharge Disposition: Home, Self-Care Condition: Stable Prescriptions: Continue Ferrous Sulfate 325 mg PO DAILY Docusate Sodium 100 mg [Colace 100 MG] 100 mg PO DAILY Carvedilol 6.25 mg [Coreg 6.25 MG] 6.25 mg PO BID Sacubitril/Valsartan [Entresto 49 mg-51 mg Tablet] 1 tab PO BID Rivaroxaban 10 mg Tablet [Xarelto 10 mg Tablet] 10 mg PO DAILY Prednisone 5 mg [Deltasone 5 mg] 5 mg PO DAILY Oxycodone HCl [Oxycodone HCl ER] 1 tab PO Q8HPRN PRN PRN Reason: Pain Mycophenolate Mofetil [Cellcept] 250 mg BID Hydrocodone/Acetaminophen [Hydrocodone-Acetamin 10-325 mg] 1 - 2 tab PO Q6HPRN PRN PRN Reason: Pain Gabapentin 300 mg [Neurontin 300 mg] 300 mg PO BID Follow up with: DOCTOR,NO FAMILY [Primary Care Provider] -
[2021-08-18] MEDS ORDERED: Oxycontin 10 MG ER PO PRN (09:09)
[2021-08-18] MEDS ORDERED: HYDROCODONE-ACETAMIN 10-325 MG PO PRN (09:09)
[2021-08-18] MEDS ORDERED: MEDICATION INTERVENTION MC SCH (09:45)
[2021-08-18] MEDS ORDERED: XARELTO 10 MG TABLET PO SCH (10:00)
[2021-08-18] MEDS ORDERED: DELTASONE 5 MG PO SCH (10:00)
[2021-08-18] MEDS ORDERED: Coreg 6.25 MG PO SCH (10:00)
[2021-08-18] MEDS ORDERED: NEURONTIN 300 MG PO SCH (10:00)
[2021-08-18] MEDS ORDERED: PROTONIX 40 MG IV IV SCH (10:00)
[2021-08-18] MEDS ORDERED: FERROUS SULFATE 325 MG PO SCH (10:00)
[2021-08-18] MEDS ORDERED: Colace 100 MG PO SCH (10:00)
[2021-08-18] MEDS ORDERED: MYCOPHENOLATE MOFETIL 250 MG PO SCH (10:00)
[2021-08-18] MEDS ORDERED: FEOSOL 325 MG PO SCH (10:00)
[2021-08-18] MEDS ORDERED: ENTRESTO 49 MG-51 MG TABLET PO SCH (10:00)
[2021-08-18 11:38] VITALS: BP 149/82; PULSE 92; O2SAT 92
== END 2021-08-18 12:30 | disposition home or self-care (01) ==
LOC: ED 17:52 → MED SURG 08-18 01:03
PROVIDERS: ADMIT Family Medicine; ATTEND Family Medicine
DX: I50.9 Heart failure, unspecified (principal); I25.10 Atherosclerotic heart disease of native coronary artery without angina pectoris; R06.82 Tachypnea, not elsewhere classified; R63.5 Abnormal weight gain; I25.2 Old myocardial infarction; Z95.0 Presence of cardiac pacemaker; Z96.651 Presence of right artificial knee joint; Z79.899 Other long term (current) drug therapy; Z20.828 Contact with and (suspected) exposure to other viral communicable diseases; Z98.890 Other specified postprocedural states
CPT/HCPCS: 0241U; 36000; 36415; 71045; 80053; 81001; 83605; 83735; 83880; 84484; 85025; 87040; 93005; 93041; 93268; 94640; 96374; 99284; G0378; J1940; A9270-GY

== ENCOUNTER 2022-08-18 15:34 | Day surgery (SDC) | payer MEDICARE ==
[2022-08-18] MEDS ORDERED: LIDOCAINE HCL 1% 50 MG/5 ML VL PF IJ ONE (15:35)
[2022-08-18] MEDS ORDERED: Depo-Medrol 40 MG/ML IM ONE (15:35)
[2022-08-18] MEDS ORDERED: BUPIVACAINE 0.5% VIAL IJ ONE (15:35)
[2022-08-18] MEDS ORDERED: Coreg ONE (18:12)
--- NOTE | 2022-08-18 19:39 | XRAY ---
Indication: Bilateral SI joint injection. Intraoperative fluoroscopy provided for 15 seconds. 5 digital spot image submitted for interpretation demonstrates posterior needle tip projecting over the left and right SI joint. Correlate with intraoperative findings/report. Incidental partially visualized right hip arthroplasty
--- NOTE | 2022-08-19 12:35 | XRAY ---
15 seconds fluoroscopy time in surgery for injections of both SI joints.
== END 2022-08-18 19:25 | disposition home or self-care (01) ==
LOC: SDC-PAIN 15:34
PROVIDERS: ATTEND Psychiatry & Neurology Pain Medicine
DX: M46.1 Sacroiliitis, not elsewhere classified (principal); Z79.899 Other long term (current) drug therapy
CPT/HCPCS: 27096; 72202; 77002; G0260; J1030; J2001; A9270-GY

== ENCOUNTER 2023-01-01 14:27 | Emergency (ER) | payer MEDICARE ==
[2023-01-01 14:42] VITALS: BP 165/80; PULSE 94; O2SAT 94
--- NOTE | 2023-01-01 14:55 | ERPHSYRPT ---
- History of Present Illness Source: patient, family Exam Limitations: no limitations Patient Subjective Stated Complaint: pt here for a skin tear to left arm after fall off a rolling chair today Triage Nursing Assessment: pt alert, resp easy, skin w/d/p. bruising to right arm left arm with bruising with large skin tear to left elbow Physician History: Skin tear left FA, minor injury, just needs wound care. Allergies/Adverse Reactions: No Known Drug Allergies Allergy (Verified 01/01/23 14:34) Home Medications: Carvedilol [Coreg ] 6.25 mg PO BID 08/17/21 [History] Docusate Sodium 100 mg [Docusate Sodium 100 MG] 100 mg PO DAILY 08/17/21 [History] Ferrous Sulfate 325 mg PO DAILY 08/17/21 [History] Gabapentin [Neurontin ] 300 mg PO BID 08/17/21 [History] Mycophenolate Mofetil [Cellcept] 250 mg BID 08/17/21 [History] Prednisone 5 mg [Deltasone 5 mg] 5 mg PO DAILY 08/17/21 [History] Sacubitril/Valsartan [Entresto 49 mg-51 mg Tablet] 1 tab PO BID 08/17/21 [History] Hx Tetanus, Diphtheria Vaccination/Date Given: No Hx Influenza Vaccination/Date Given: Yes Hx Pneumococcal Vaccination/Date Given: Yes Immunizations Up to Date: Yes Travel Risk - International Travel Have you traveled outside of the country in past 3 weeks: No - Coronavirus Screening Are you exhibiting any of the following symptoms?: No Close contact with a COVID-19 positive Pt in past 14-21 Days: No - Vaccine Status Have you recieved a Covid-19 vaccination: Yes Account Officer: Moderna - Vaccination Dates Date of 2cond Vaccination (if applicable): 2020 - Review of Systems Constitutional: No Symptoms Eyes: No Symptoms Ears, Nose, & Throat: No Symptoms Respiratory: No Symptoms Cardiac: No Symptoms Abdominal/Gastrointestinal: No Symptoms Genitourinary Symptoms: No Symptoms Musculoskeletal: No Symptoms Skin: No Symptoms Neurological: No Symptoms Psychological: No Symptoms Endocrine: No Symptoms Hematologic/Lymphatic: No Symptoms Immunological/Allergic: No Symptoms All Other Systems: Reviewed and Negative - Past Medical History Pertinent Past Medical History: Yes Neurological History: TIA ENT History: Cataracts Cardiac History: Arrhythmia, Congestive Heart Failure, Coronary Artery Disease, Deep Vein Thrombosis, Myocardial Infarction ([place]) Respiratory History: CHF, COPD Endocrine Medical History: No Pertinent History Musculoskeletal History: Arthritis GI Medical History: GERD, Irritable Bowel History: No Pertinent History Psycho-Social History: No Pertinent History - Past Surgical History Past Surgical History: Yes Neuro Surgical History: No Pertinent History Cardiac: Internal Defibrillator, Pacemaker, Other Respiratory: No Pertinent History Gastrointestinal: Cholecystectomy Genitourinary: No Pertinent History Musculoskeletal: Orthopedic Surgery Male Surgical History: No Pertinent History Other Surgical History: right knee total replacement Aug 2021, Left knee replacement 2016, heart transplant 2007-[facility]. Right hip replaced 2017 - Social History Smoking Status: Former smoker How long have you smoked: 2006 Exposure to second hand smoke: No Drug Use: none Patient Lives Alone: No - Nursing Vital Signs Nursing Vital Signs: Initial Vital Signs Temperature 97.2 F 01/01/23 14:41 Pulse Rate 94 H 01/01/23 14:41 Respiratory Rate 18 01/01/23 14:41 Blood Pressure 165/80 01/01/23 14:41 O2 Sat by Pulse Oximetry 94 L 01/01/23 14:41 Pain Scale Pain Intensity 4 - Physical Exam General Appearance: no apparent distress Eyes, Ears, Nose, Throat Exam: normal ENT inspection Neck Exam: normal inspection Cardiovascular/Respiratory Exam: chest non-tender, normal breath sounds Abdominal Exam: non-tender, soft Back Exam: normal inspection Shoulder Exam: normal inspection Wrist Exam: soft tissue tenderness (minor skin tear left FA, no bony injury or infection) Hand Exam: normal inspection Neuro/Tendon Exam: normal sensation, normal motor functions, normal tendon functions Mental Status Exam: alert, oriented x 3, cooperative Skin Exam: normal color, warm, dry SpO2: 94 - Course Nursing assessment & vital signs reviewed: Yes - Progress Progress: improved Progress Note: 01/01/23 15:30 Nurse did standard wound care. Boostrix. Abx Rx. Counseled pt/family regarding: diagnosis Medical Desision Making - Independent Historian Additional History obtained from: EMS - Risk of complications Minimal Risk: Minimal risk of morbidity - Departure Departure Disposition: Home Clinical Impression: Skin tear of left forearm without complication Qualifiers: Encounter type: initial encounter Qualified Code(s): S51.812A - Laceration without foreign body of left forearm, initial encounter Condition: Stable Critical Care Time: No Referrals: DIONNE HENRY DO [Primary Care Provider] - Follow up/PCP as directed Additional Instructions: Wound care as advised by the nurse, recheck as needed. Prescriptions: Cephalexin Mh 500 mg [Keflex 500 mg] 500 mg PO TID 7 Days #21 cap
[2023-01-01] MEDS ORDERED: Adacel Vial IM ONE ×2 (15:33→15:39)
== END 2023-01-01 15:56 | disposition home or self-care (01) ==
LOC: ED 14:27
DX: S51.812A Laceration without foreign body of left forearm, initial encounter (principal); W07.XXXA Fall from chair, initial encounter; Z79.899 Other long term (current) drug therapy
CPT/HCPCS: 90471; 90715; 99282

== ENCOUNTER 2023-02-21 16:20 | Emergency (ER) | payer MEDICARE ==
[2023-02-21] MEDS ORDERED: XYLOCAINE 1% HCL 20 ML MDV ONE ×2 (16:57→18:26)
[2023-02-21] MEDS ORDERED: KEFLEX 500 MG PO ONE (17:07)
--- NOTE | 2023-02-21 17:13 | ERPHSYRPT ---
- History of Present Illness Time Seen by Provider: 02/21/23 17:10 Source: patient Exam Limitations: no limitations Patient Subjective Stated Complaint: limb fell on me, gouged me and knocked chain saw out of my hands Triage Nursing Assessment: pt a/o x3, avulsion w no flap to L anterior thigh, skin tear to posterior hand and wrist, laceration between index and middle finger, moderate bleeding Physician History: Patient is 77-year-old male presents to our ED for evaluation of a laceration to the left anterior medial knee. Patient was performing routine yard work he was cutting a tree branch when the branch fell onto his left knee area. Patient has a large soft tissue defect in this area. Patient states his tetanus is up-to-date. No known drug allergies. Patient also has a skin tear dorsal aspect of the right wrist and between the left second and third digits. Patient denies bony tenderness. Patient declined x-rays as he feels it is not necessary. All involved extremities are neurovascular intact distally. Compartments are soft. Cap refill less than 2 seconds. No other injuries reported. No BHT or LOC. No neck pain. No cervical spine injuries. at bedside. They voiced no other complaints or concerns at this time. Portions of this note were created with voice recognition technology. There may be grammatical, spelling, punctuation or sound alike errors Timing/Duration: today Severity: moderate Modifying Factors: Improves With: nothing Associated Symptoms: denies symptoms Allergies/Adverse Reactions: No Known Drug Allergies Allergy (Verified 01/01/23 14:34) Home Medications: Carvedilol [Coreg ] 6.25 mg PO BID 08/17/21 [History] Docusate Sodium 100 mg [Docusate Sodium 100 MG] 100 mg PO DAILY 08/17/21 [History] Ferrous Sulfate 325 mg PO TID 08/17/21 [History] Gabapentin [Neurontin ] 300 mg PO BID 08/17/21 [History] Mycophenolate Mofetil [Cellcept] 250 mg BID 08/17/21 [History] Prednisone 5 mg [Deltasone 5 mg] 5 mg PO DAILY 08/17/21 [History] Sacubitril/Valsartan [Entresto 49 mg-51 mg Tablet] 1 tab PO BID 08/17/21 [History] Aspirin [Aspirin EC] 81 mg PO DAILY 02/21/23 [History] Furosemide 40 mg [Lasix 40 MG] 40 mg PO DAILY PRN PRN 02/21/23 [History] Potassium Chloride [Klor-Con M10] 10 meq PO DAILY PRN PRN 02/21/23 [History] Sirolimus [Rapamune] 2 mg PO DAILY 02/21/23 [History] Hx Tetanus, Diphtheria Vaccination/Date Given: Yes (6 week ago) Hx Influenza Vaccination/Date Given: Yes Hx Pneumococcal Vaccination/Date Given: Yes Travel Risk - International Travel Have you traveled outside of the country in past 3 weeks: No - Vaccine Status Have you recieved a Covid-19 vaccination: Yes Cosmetologist Apprentice: Moderna - Vaccination Dates Date of 2cond Vaccination (if applicable): unk - Review of Systems Constitutional: No Symptoms, No Fever, No Chills Eyes: No Symptoms Ears, Nose, & Throat: No Symptoms Respiratory: No Symptoms, No Cough, No Dyspnea Cardiac: No Symptoms, No Chest Pain, No Edema, No Syncope Abdominal/Gastrointestinal: No Symptoms, No Abdominal Pain, No Nausea, No Vomiting, No Diarrhea Genitourinary Symptoms: No Symptoms, No Dysuria Musculoskeletal: No Symptoms, No Back Pain, No Neck Pain Skin: No Symptoms, No Rash Neurological: No Symptoms, No Dizziness, No Focal Weakness, No Sensory Changes Psychological: No Symptoms Endocrine: No Symptoms Hematologic/Lymphatic: No Symptoms Immunological/Allergic: No Symptoms All Other Systems: Reviewed and Negative - Past Medical History Pertinent Past Medical History: Yes Neurological History: TIA ENT History: Cataracts Cardiac History: Arrhythmia, Congestive Heart Failure, Coronary Artery Disease, Deep Vein Thrombosis, Myocardial Infarction ([place]) Respiratory History: CHF, COPD Endocrine Medical History: No Pertinent History Musculoskeletal History: Arthritis GI Medical History: GERD, Irritable Bowel History: No Pertinent History Psycho-Social History: No Pertinent History - Past Surgical History Past Surgical History: Yes Neuro Surgical History: No Pertinent History Cardiac: Internal Defibrillator, Pacemaker, Other Respiratory: No Pertinent History Gastrointestinal: Cholecystectomy Genitourinary: No Pertinent History Musculoskeletal: Orthopedic Surgery Male Surgical History: No Pertinent History Other Surgical History: right knee total replacement Aug 2021, Left knee replacement 2016, heart transplant 2007-[facility]. Right hip replaced 2017 - Social History Smoking Status: Former smoker How long have you smoked: 2006 Exposure to second hand smoke: No Drug Use: none Patient Lives Alone: No - Nursing Vital Signs Nursing Vital Signs: Pain Scale Pain Intensity 3 - Physical Exam General Appearance: no apparent distress, alert Eye Exam: PERRL/EOMI, eyes nml inspection Ears, Nose, Throat Exam: normal ENT inspection, TMs normal, pharynx normal, moist mucous membranes Neck Exam: normal inspection, non-tender, supple, full range of motion Respiratory Exam: normal breath sounds, lungs clear, airway intact, No respiratory distress Cardiovascular Exam: regular rate/rhythm, normal heart sounds, normal peripheral pulses Gastrointestinal/Abdomen Exam: soft, normal bowel sounds, No tenderness, No mass Back Exam: normal inspection, normal range of motion, No CVA tenderness, No vertebral tenderness Extremity Exam: normal inspection, normal range of motion, pelvis stable, lacerations (All 3 involved extremities are neurovascular intact distally. Compartments are soft. Cap refill less than 2 seconds. PT DP pulse palpable. Radial pulse palpable), other (Large 3 cm x 4 cm soft tissue defect anteromedial knee. Skin tear dorsal aspect right wrist. Skin tear left finger webs base between the second and third digit. ) Neurologic Exam: alert, oriented x 3, cooperative, normal mood/affect, nml cerebellar function, nml station & gait, sensation nml, No motor deficits Skin Exam: normal color, warm, dry, No rash Lymphatic Exam: No adenopathy SpO2 Interpretation: normal O2 Delivery: Room Air - Course Nursing assessment & vital signs reviewed: Yes Ordered Tests: Active Orders 24 hr Category Date Time Status IV Insertion STAT Care 02/21/23 18:12 Active Wound Care STAT Care 02/21/23 18:48 Active Medication Summary Discontinued Medications Generic Name Dose Route Start Last Admin Trade Name Freq PRN Reason Stop Dose Admin Acetaminophen 975 mg 02/21/23 17:39 02/21/23 18:16 Acetaminophen 325 Mg Tablet PO 02/21/23 17:40 975 mg STAT ONE Administration Acetaminophen Confirm 02/21/23 18:15 Acetaminophen 325 Mg Tablet Administered 02/21/23 18:16 Dose 975 mg .ROUTE .STK-MED ONE Cephalexin HCl 500 mg 02/21/23 17:07 02/21/23 18:13 Cephalexin Mh500 Mg Capsule PO 02/21/23 17:08 Not Given STAT ONE Cefazolin Sodium/Dextrose 1 gm in 50 mls @ 100 mls/hr 02/21/23 17:57 02/21/23 18:50 Kefzol 1 Gm/50 Ml Premix IV 02/21/23 18:26 Infused STAT STA Infusion Cefazolin Sodium/Dextrose Confirm 02/21/23 18:13 Kefzol 1 Gm/50 Ml Premix Administered 02/21/23 18:14 Dose 1 gm in 50 mls @ ud IV .STK-MED ONE Lidocaine HCl Confirm 02/21/23 16:57 Lidocaine Hcl 1% 20 Ml Mdv 20 Ml Ml Administered 02/21/23 16:58 Dose 6 ml .ROUTE .STK-MED ONE Lidocaine HCl 20 ml 02/21/23 18:28 02/21/23 18:30 Lidocaine Hcl 1% 20 Ml Mdv 20 Ml Ml IJ 02/21/23 18:29 20 ml STAT ONE Administration Lidocaine HCl Confirm 02/21/23 18:26 Lidocaine Hcl 1% 20 Ml Mdv 20 Ml Ml Administered 02/21/23 18:27 Dose 14 ml .ROUTE .STK-MED ONE - Progress Progress: improved Progress Note: Wound cleaned and irrigated by RN. Dressing applied. There is a large soft tissue defect left knee with contamination likely will require surgical debridement as well as surgical closure. Extremities neurovascular intact distally. Patient received an oral dose of Keflex in our ED. Tetanus up-to-date. We will transfer patient to higher level of care. 77-year-old male presents to our ED with soft tissue lacerations/skin tears secondary to injury from a large tree branch. Extremities neurovascular intact distally Complexity of problem addressed is low, acute uncomplicated. No systemic manifestations Complex of data reviewed and analyzed is none. No specialized testing ordered. Patient declined x-rays. Patient states he is got no bony pain or tenderness. Patient states he is ambulatory without any problems. Risk of complication and risk of morbidity/mortality patient management is moderate. Laceration and skin tears. Patient was discharged home with 4 [place] pills for pain control. There is a significant soft tissue defect at the left knee. Patient will likely require surgical debridement and closure. We will transfer to higher level of care. Patient agrees to transfer. He prefers [facility]. We will try their first. If unable to transfer to [place] we will try regional. 02/21/23 17:16 Dr. Ronald Miller covering surgery services at [facility]. I spoke to Dr. Ronald Miller at approximately 5:[address] Ronald Miller will contact orthopedic services prior to excepting transfer 02/21/23 17:52 Dr. Milelr returned call. He spoke to Dr. Moscoso who advises no need for admission. Patient to receive a dose of Ancef IV. Patient's wound to be thoroughly irrigated in our ED. Dr. Cruz will see patient in his office tomorrow morning. Also patient to be discharged home with 5 days of Keflex 02/21/23 17:58 02/21/23 18:57 Counseled pt/family regarding: diagnosis - Departure Departure Disposition: Home Clinical Impression: Laceration, Skin tear Condition: Stable Critical Care Time: No Referrals: DIONNE HENRY, [Primary Care Provider] - Follow up/PCP as directed Additional Instructions: Please contact Dr. Cruz's office in the morning to establish a follow-up appointment time. Tamara Akinser contact information [address] [address] Discharge/Care Plan CARMEN GALVIN was seen on 02/21/23 in the Emergency Room. The patient was counseled regarding Diagnosis,Lab results, Imaging studies, need for follow up and when to return to the Emergency Room. Prescriptions given: Discharge Note I have spoken with the patient and/or caregivers. I have explained the patient's condition, diagnosis and treatment plan based on the information available to me at this time. I have answered the patient's and/or caregiver's questions and addressed any concerns. The patient and/or caregivers have as good understanding of the patient's diagnosis, condition and treatment plan as can be expected at this point. The vital signs have been stable. The patient's condition is stable and appropriate for discharge from the emergency department. The patient will pursue further outpatient evaluation with the primary care physician or other designated or consulting physician as outlined in the discharge instructions. The patient and/or caregivers are agreeable to this plan of care and follow-up instructions have been explained in detail. The patient and/or caregivers have received these instruction. The patient/and or caregivers are aware that any significant change in condition or worsening of symptoms should prompt an immediate return to this or the closest emergency department or call 911. Prescriptions: Cephalexin Mh 500 mg [Keflex 500 mg] 500 mg PO TID 5 Days #15 cap
[2023-02-21] MEDS ORDERED: TYLENOL 325 MG PO ONE (17:39)
[2023-02-21] MEDS ORDERED: KEFZOL 1 GM/50 ML PREMIX** 1 GM/50 ML IVPB IV STA (17:57)
[2023-02-21] MEDS ORDERED: KEFZOL 1 GM/50 ML PREMIX** 1 GM/50 ML IVPB IV ONE (18:13)
[2023-02-21] MEDS ORDERED: TYLENOL 325 MG ONE (18:15)
[2023-02-21] MEDS ORDERED: XYLOCAINE 1% HCL 20 ML MDV IJ ONE (18:28)
[2023-02-21] MEDS ORDERED: NORCO 5/325 MG PO ONE (18:53)
[2023-02-21] MEDS ORDERED: NORCO 5/325 MG ONE (18:56)
[2023-02-21 19:02] VITALS: PULSE 72; O2SAT 96
== END 2023-02-21 19:03 | disposition home or self-care (01) ==
LOC: ED 16:20
DX: S81.012A Laceration without foreign body, left knee, initial encounter (principal); S61.511A Laceration without foreign body of right wrist, initial encounter; S61.411A Laceration without foreign body of right hand, initial encounter; W20.8XXA Other cause of strike by thrown, projected or falling object, initial encounter; I50.22 Chronic systolic (congestive) heart failure; Z79.899 Other long term (current) drug therapy
CPT/HCPCS: 36000; 96365; 96372; 99284; J0690; A9270-GY

== ENCOUNTER 2024-01-07 09:51 | Observation (INO) | payer MEDICARE ==
--- NOTE | 2024-01-07 10:28 | ERPHSYRPT ---
- History of Present Illness Time Seen by Provider: 01/07/24 10:24 Source: patient, family Exam Limitations: clinical condition Patient Subjective Stated Complaint: Weakness Triage Nursing Assessment: Patient brought back to ED per EMS and transferred to bed with assist of 3. Patient's skin pink, warm and dry. Patient complains of weakness and SOB for the past few days. Patient was discharged from [facility] on 12/28/2023 with pneumonia. Patient states he was walking to the restroom when he got weak and slid down on the floor. Patient denies pain or discomfort. Lungs noted to have wheezing throughout. Patient wears home Oxygen per N/C at 2 liters per N/C. Physician History: Patient complains of weakness and SOB for the past few days. Patient was discharged from [facility] on 12/28/2023 with pneumonia. Patient states he was walking to the restroom when he got weak and slid down on the floor. Patient denies pain or discomfort. Lungs noted to have wheezing throughout. Timing/Duration: today Activities at Onset: none Modifying Factors: Improves With: breathing Nitro Today/Relief: no nitro taken today Aspirin Treatment Today: no aspirin today Associated Symptoms: shortness of breath, cough Allergies/Adverse Reactions: No Known Drug Allergies Allergy (Verified 01/07/24 09:59) Home Medications: Carvedilol [Coreg ] 6.25 mg PO BID 08/17/21 [History] Docusate Sodium 100 mg [Docusate Sodium 100 MG] 100 mg PO DAILY 08/17/21 [History] Ferrous Sulfate 325 mg PO TID 08/17/21 [History] Gabapentin [Neurontin ] 300 mg PO BID 08/17/21 [History] Mycophenolate Mofetil [Cellcept] 250 mg BID 08/17/21 [History] Prednisone 5 mg [Deltasone 5 mg] 5 mg PO DAILY 08/17/21 [History] Sacubitril/Valsartan [Entresto 49 mg-51 mg Tablet] 1 tab PO BID 08/17/21 [History] Aspirin [Aspirin EC] 81 mg PO DAILY 02/21/23 [History] Furosemide 40 mg [Lasix 40 MG] 40 mg PO DAILY PRN PRN 02/21/23 [History] Potassium Chloride [Klor-Con M10] 10 meq PO DAILY PRN PRN 02/21/23 [History] Sirolimus [Rapamune] 2 mg PO DAILY 02/21/23 [History] Hx Tetanus, Diphtheria Vaccination/Date Given: Yes (6 week ago) Hx Influenza Vaccination/Date Given: Yes Hx Pneumococcal Vaccination/Date Given: Yes Immunizations Up to Date: Yes Travel Risk - International Travel Have you traveled outside of the country in past 3 weeks: No - Emerging Infectious Disease Are you exhibiting symptoms associated with any current EIDs: No - Review of Systems Constitutional: No Fever, No Chills Eyes: No Symptoms Ears, Nose, & Throat: No Symptoms Respiratory: Cough, Dyspnea, Dyspnea on Exertion (PUGA), Wheezing Cardiac: No Chest Pain, No Edema, No Syncope Abdominal/Gastrointestinal: No Abdominal Pain, No Nausea, No Vomiting, No Diarrhea Genitourinary Symptoms: No Dysuria Musculoskeletal: No Back Pain, No Neck Pain Skin: No Rash Neurological: No Dizziness, No Focal Weakness, No Sensory Changes Psychological: No Symptoms Endocrine: No Symptoms All Other Systems: Reviewed and Negative - Past Medical History Pertinent Past Medical History: Yes Neurological History: TIA ENT History: Cataracts Cardiac History: Arrhythmia, Congestive Heart Failure, Coronary Artery Disease, Deep Vein Thrombosis, Myocardial Infarction (DE) Respiratory History: CHF, COPD Endocrine Medical History: No Pertinent History Musculoskeletal History: Arthritis GI Medical History: GERD, Irritable Bowel History: No Pertinent History Psycho-Social History: No Pertinent History - Past Surgical History Past Surgical History: Yes Neuro Surgical History: No Pertinent History Cardiac: Internal Defibrillator, Pacemaker, Other Respiratory: No Pertinent History Gastrointestinal: Cholecystectomy Genitourinary: No Pertinent History Musculoskeletal: Orthopedic Surgery Male Surgical History: No Pertinent History Other Surgical History: right knee total replacement Aug 2021, Left knee replacement 2016, heart transplant 2007-[facility] latter-day. Right hip replaced 2017 - Social History Smoking Status: Former smoker How long have you smoked: 2006 Exposure to second hand smoke: No Drug Use: none Patient Lives Alone: No - Nursing Vital Signs Nursing Vital Signs: Initial Vital Signs Temperature 98.6 F 01/07/24 10:02 Pulse Rate 94 H 01/07/24 10:02 Respiratory Rate 35 H 01/07/24 10:02 Blood Pressure 135/111 01/07/24 10:02 O2 Sat by Pulse Oximetry 92 L 01/07/24 10:02 Pain Scale Pain Intensity 0 - Physical Exam General Appearance: moderate distress, alert Eye Exam: PERRL/EOMI, eyes nml inspection Ears, Nose, Throat Exam: normal ENT inspection, moist mucous membranes Neck Exam: normal inspection, non-tender, supple Respiratory Exam: respiratory distress, diminished breath sounds, accessory muscle use, crackles/rales, rhonchi, wheezing Cardiovascular Exam: gallop, irregular, capillary refill 2-3 sec, edema Gastrointestinal/Abdomen Exam: soft, No tenderness, No mass Back Exam: normal inspection, No CVA tenderness, No vertebral tenderness Extremity Exam: normal inspection, normal range of motion Neurologic Exam: alert, oriented x 3, cooperative, normal mood/affect, nml cerebellar function, sensation nml, No motor deficits Skin Exam: normal color, warm, dry Lymphatic Exam: No adenopathy SpO2 Interpretation: borderline oxygenation SpO2: 92 O2 Delivery: Room Air - Course Nursing assessment & vital signs reviewed: Yes EKG Interpreted by Me: Non-specific ST Changes - Radiology Exams Chest X-ray Interpretation: Interpreted by me, Reviewed by me Ordered Tests: Active Orders 24 hr Category Date Time Status Business Continuity Manager STAT Care 01/07/24 10:18 Active EKG-ER Only STAT Care 01/07/24 10:17 Active Oxygen-ED Only Nasal Cannula 3 lpm Care 01/07/24 10:17 Active CHEST 2 VIEWS (PA AND LAT) Stat Exams 01/07/24 10:18 Taken BLOOD CULTURE Stat Lab 01/07/24 10:18 Ordered CBC W DIFF Stat Lab 01/07/24 10:55 Completed CMP Stat Lab 01/07/24 10:55 Completed D-DIMER QUANTITATIVE Stat Lab 01/07/24 10:55 Completed Lactic Acid Stat Lab 01/07/24 10:17 Completed MAGNESIUM Stat Lab 01/07/24 10:55 Completed NT PRO BNPII Stat Lab 01/07/24 10:55 Completed PROTIME WITH INR Stat Lab 01/07/24 10:55 Completed TROPONIN Stat Lab 01/07/24 10:55 Completed VBG [VENOUS BLOOD GAS] Stat Lab 01/07/24 10:59 Completed Medication Summary Generic Name Dose Route Start Last Admin Trade Name Freq PRN Reason Stop Dose Admin Sodium Chloride 1,000 mls @ 100 mls/hr 01/07/24 10:30 01/07/24 11:06 Sodium Chloride 0.9% 1000 Ml IV 02/06/24 10:29 100 mls/hr .Q10H ROLO Administration Discontinued Medications Generic Name Dose Route Start Last Admin Trade Name Nena PRN Reason Stop Dose Admin Meropenem 1 gm/ Sodium 100 mls @ 200 mls/hr 01/07/24 12:26 01/07/24 12:41 Chloride IV 01/07/24 12:55 200 mls/hr STAT ONE Administration Sodium Chloride Confirm 01/07/24 12:31 Sodium Chloride 100ml Mini-Bag Plus Administered 01/07/24 12:32 Dose 100 mls @ ud IV .STK-MED ONE Meropenem Confirm 01/07/24 12:30 Meropenem 1 Gm Vial Administered 01/07/24 12:31 Dose 1 gm IV .STK-MED ONE Lab/Rad Data: Laboratory Result Diagrams 01/07/24 10:55 01/07/24 10:55 Laboratory Results 01/07/24 01/07/24 01/07/24 Range/Units 11:00 10:59 10:55 WBC (4.0-10.5) x10^3/uL RBC (4.1-5.6) x10^6/uL Hgb (12.5-18.0) g/dL Hct (42-50) % MCV (78-100) fL MCH (26-32) pg MCHC (32-36) g/dL RDW (11.5-14.0) % Plt Count (150-450) x10^3/uL MPV (7.5-11.0) fL Gran % (36.0-66.0) % Immature Gran % (Auto) (0.00-0.4) % Nucleat RBC Rel Count (0.00-0.1) % Eos # (Auto) (0-0.5) x10^3/uL Immature Gran # (Auto) (0.00-0.03) x10^3u/L Absolute Lymphs (auto) (1.0-4.6) x10^3/uL Absolute Monos (auto) (0.0-1.3) x10^3/uL Absolute Nucleated RBC (0.00-0.01) x10^3u/L Lymphocytes % (24.0-44.0) % Monocytes % (0.0-12.0) % Eosinophils % (0.00-5.0) % Basophils % (0.0-0.4) % Absolute Granulocytes (1.4-6.9) x10^3/uL Basophils # (0-0.4) x10^3/uL PT (9.4-12.5) SECONDS INR (0.8-3.0) D-Dimer (0.0-0.50) mg/L pO2/FiO2 Ratio 40.0 % VBG pH 7.51 H (7.32-7.42) VBG pCO2 at Pat Temp 35 L (42-55) mm/Hg VBG pO2 at Pat Temp 26 (25-40) mm/Hg VBG HCO3 27.9 (22-28) meq/L VBG O2 Sat (Ron) 55.2 L (95-100) VBG Base Excess 4.8 H (-2.0-2.0) VBG Hemoglobin 10.3 VBG Carboxyhemoglobin 3.7 (0.0-6.9) % T HGB POC Potassium 4.4 (3.5-5.1) Sodium (135-145) mmol/L Potassium (3.5-5.1) mmol/L Chloride (98-107) mmol/L Carbon Dioxide (22-30) mmol/L Anion Gap (5-15) MEQ/L BUN (9-20) mg/dL Creatinine (0.66-1.25) mg/dL Estimated GFR ML/MIN Glucose (74-106) mg/dL Lactic Acid (0.4-2.0) Calcium (8.4-10.2) mg/dL Magnesium (1.6-2.3) mg/dL Total Bilirubin (0.2-1.3) mg/dL AST (17-59) U/L ALT (0-50) U/L Alkaline Phosphatase (38-126) U/L Troponin I 0.014 (0.000-0.033) ng/mL NT-Pro-B Natriuret Pep (<300) pg/mL Serum Total Protein (6.3-8.2) g/dL Albumin (3.5-5.0) g/dL Influenza Type A Ag NEGATIVE (NEGATIVE) Influenza Type B Ag NEGATIVE (NEGATIVE) RSV (PCR) NEGATIVE (NEGATIVE) SARS-CoV-2 (PCR) NEGATIVE (NEGATIVE) 01/07/24 01/07/24 01/07/24 Range/Units 10:55 10:55 10:55 WBC 7.0 (4.0-10.5) x10^3/uL RBC 3.72 L (4.1-5.6) x10^6/uL Hgb 9.7 L (12.5-18.0) g/dL Hct 30.0 L (42-50) % MCV 80.6 (78-100) fL MCH 26.1 (26-32) pg MCHC 32.3 (32-36) g/dL RDW 14.5 H (11.5-14.0) % Plt Count 293 (150-450) x10^3/uL MPV 9.3 (7.5-11.0) fL Gran % 70.1 H (36.0-66.0) % Immature Gran % (Auto) 0.7 H (0.00-0.4) % Nucleat RBC Rel Count 0.0 (0.00-0.1) % Eos # (Auto) 0.25 (0-0.5) x10^3/uL Immature Gran # (Auto) 0.05 H (0.00-0.03) x10^3u/L Absolute Lymphs (auto) 0.87 L (1.0-4.6) x10^3/uL Absolute Monos (auto) 0.88 (0.0-1.3) x10^3/uL Absolute Nucleated RBC 0.00 (0.00-0.01) x10^3u/L Lymphocytes % 12.4 L (24.0-44.0) % Monocytes % 12.6 H (0.0-12.0) % Eosinophils % 3.6 (0.00-5.0) % Basophils % 0.6 (0.0-0.4) % Absolute Granulocytes 4.91 (1.4-6.9) x10^3/uL Basophils # 0.04 (0-0.4) x10^3/uL PT 11.9 (9.4-12.5) SECONDS INR 1.10 (0.8-3.0) D-Dimer 3.33 H* (0.0-0.50) mg/L pO2/FiO2 Ratio % VBG pH (7.32-7.42) VBG pCO2 at Pat Temp (42-55) mm/Hg VBG pO2 at Pat Temp (25-40) mm/Hg VBG HCO3 (22-28) meq/L VBG O2 Sat (Ron) (95-100) VBG Base Excess (-2.0-2.0) VBG Hemoglobin VBG Carboxyhemoglobin (0.0-6.9) % T HGB POC Potassium (3.5-5.1) Sodium 133 L (135-145) mmol/L Potassium 4.5 (3.5-5.1) mmol/L Chloride 98 (98-107) mmol/L Carbon Dioxide 25 (22-30) mmol/L Anion Gap 14.3 (5-15) MEQ/L BUN 26 H (9-20) mg/dL Creatinine 1.44 H (0.66-1.25) mg/dL Estimated GFR 50.1 ML/MIN Glucose 108 H (74-106) mg/dL Lactic Acid (0.4-2.0) Calcium 8.5 (8.4-10.2) mg/dL Magnesium 1.8 (1.6-2.3) mg/dL Total Bilirubin 0.80 (0.2-1.3) mg/dL AST 86 H (17-59) U/L ALT 119 H (0-50) U/L Alkaline Phosphatase 520 H (38-126) U/L Troponin I (0.000-0.033) ng/mL NT-Pro-B Natriuret Pep 4210 (<300) pg/mL Serum Total Protein 5.8 L (6.3-8.2) g/dL Albumin 2.8 L (3.5-5.0) g/dL Influenza Type A Ag (NEGATIVE) Influenza Type B Ag (NEGATIVE) RSV (PCR) (NEGATIVE) SARS-CoV-2 (PCR) (NEGATIVE) 01/07/24 Range/Units 10:17 WBC (4.0-10.5) x10^3/uL RBC (4.1-5.6) x10^6/uL Hgb (12.5-18.0) g/dL Hct (42-50) % MCV (78-100) fL MCH (26-32) pg MCHC (32-36) g/dL RDW (11.5-14.0) % Plt Count (150-450) x10^3/uL MPV (7.5-11.0) fL Gran % (36.0-66.0) % Immature Gran % (Auto) (0.00-0.4) % Nucleat RBC Rel Count (0.00-0.1) % Eos # (Auto) (0-0.5) x10^3/uL Immature Gran # (Auto) (0.00-0.03) x10^3u/L Absolute Lymphs (auto) (1.0-4.6) x10^3/uL Absolute Monos (auto) (0.0-1.3) x10^3/uL Absolute Nucleated RBC (0.00-0.01) x10^3u/L Lymphocytes % (24.0-44.0) % Monocytes % (0.0-12.0) % Eosinophils % (0.00-5.0) % Basophils % (0.0-0.4) % Absolute Granulocytes (1.4-6.9) x10^3/uL Basophils # (0-0.4) x10^3/uL PT (9.4-12.5) SECONDS INR (0.8-3.0) D-Dimer (0.0-0.50) mg/L pO2/FiO2 Ratio % VBG pH (7.32-7.42) VBG pCO2 at Pat Temp (42-55) mm/Hg VBG pO2 at Pat Temp (25-40) mm/Hg VBG HCO3 (22-28) meq/L VBG O2 Sat (Ron) (95-100) VBG Base Excess (-2.0-2.0) VBG Hemoglobin VBG Carboxyhemoglobin (0.0-6.9) % T HGB POC Potassium (3.5-5.1) Sodium (135-145) mmol/L Potassium (3.5-5.1) mmol/L Chloride (98-107) mmol/L Carbon Dioxide (22-30) mmol/L Anion Gap (5-15) MEQ/L BUN (9-20) mg/dL Creatinine (0.66-1.25) mg/dL Estimated GFR ML/MIN Glucose (74-106) mg/dL Lactic Acid 1.1 (0.4-2.0) Calcium (8.4-10.2) mg/dL Magnesium (1.6-2.3) mg/dL Total Bilirubin (0.2-1.3) mg/dL AST (17-59) U/L ALT (0-50) U/L Alkaline Phosphatase (38-126) U/L Troponin I (0.000-0.033) ng/mL NT-Pro-B Natriuret Pep (<300) pg/mL Serum Total Protein (6.3-8.2) g/dL Albumin (3.5-5.0) g/dL Influenza Type A Ag (NEGATIVE) Influenza Type B Ag (NEGATIVE) RSV (PCR) (NEGATIVE) SARS-CoV-2 (PCR) (NEGATIVE) - Progress Progress: unchanged Air Movement: fair Blood Culture(s) Obtained: No Antibiotics given: Yes Discussed with Dr.: Other (Dr Perla- Telehospitalist) Will see patient in: hospital (observation) Counseled pt/family regarding: lab results, diagnosis, need for follow-up, rad results Medical Desision Making - Independent Historian Additional History obtained from: Spouse - Discussion of managment Care discussed with:: hospitalist Reviewed:: Test results, Need for additional workup Agreed on:: decision to admit, place in obs - Diagnostic Testing Diagnostic test were ordered, analyzed, and reviewed by me: Yes Radiological Interpretation: Interpreted by me, Reviewed by me - Risk of complications The pt has a mod risk of morbidity or mortality based on: Diagnosis or treatment limited by SDOH The pt has a high risk of morbidity or mortality based on: Decision regarding hospitilization or escalation of hosp level of care - Departure Departure Disposition: Observation Clinical Impression: Weakness acquired in intensive care unit Pneumonia Qualifiers: Pneumonia type: due to unspecified organism Laterality: bilateral Lung location: lower lobe of lung Qualified Code(s): J18.9 - Pneumonia, unspecified organism CAD (coronary artery disease) Qualifiers: Coronary Disease-Associated Artery/Lesion type: [place] artery [place] vs. transplanted heart: transplanted heart Condition: Fair Critical Care Time: Yes Critical Care Time(excluding separately billable procedures): Critical 30-74 mins Referrals: ARIADNA SOLORZANO MD [Primary Care Provider] - Follow up/PCP as directed
[2024-01-07] MEDS ORDERED: Sodium Chloride 0.9% 1000 ML 1,000 ML ONE (10:47)
[2024-01-07] MEDS: Sodium Chloride 0.9% 1000 ML 1,000 ML IV SCH (11:06)
[2024-01-07 11:18] LABS: VBG BASE EXCESS 4.8 (-2.0-2.0); VBG CARBOXYHEMOGLOBIN 3.7 % T HGB (0.0-6.9); VBG HCO3- 27.9 meq/L (22-28); VBG HEMOGLOBIN 10.3; VBG O2 SATURATION 55.2 (95-100); VBG POTASSIUM 4.4 (3.5-5.1); VBG pH 7.51 (7.32-7.42)
[2024-01-07 11:25] LABS: Absolute Neutrophil Ct (ANC) 4.91 x10^3/uL (1.4-6.9); BASOPHIL % 0.6 % (0.0-0.4); Basophil (Absolute #) 0.04 x10^3/uL (0-0.4); Eosinophil % 3.6 % (0.00-5.0); Eosinophil (Absolute #) 0.25 x10^3/uL (0-0.5); Hemoglobin 9.7 g/dL (12.5-18.0); IMMATURE GRAN # 0.05 x10^3u/L (0.00-0.03); IMMATURE GRAN % 0.7 % (0.00-0.4); INR 1.1 (0.8-3.0); Lymphocyte (Absolute #) 0.87 x10^3/uL (1.0-4.6); Lymphocytes % 12.4 % (24.0-44.0); Mean Cell Volume 80.6 fL (78-100); Mean Corpuscular Hemoglobin 26.1 pg (26-32); Mean Corpuscular Hgb Concent. 32.3 g/dL (32-36); Mean Platelet Volume 9.3 fL (7.5-11.0); Monocyte (Absolute #) 0.88 x10^3/uL (0.0-1.3); Monocytes % 12.6 % (0.0-12.0); Neutrophil % 70.1 % (36.0-66.0); PROTIME 11.9 SECONDS (9.4-12.5); Platelet Count 293 x10^3/uL (150-450); Red Blood Count 3.72 x10^6/uL (4.1-5.6); Red Cell Distribution Width 14.5 % (11.5-14.0)
[2024-01-07 11:35] LABS: D-DIMER QUANTITATIVE 3.33 mg/L (0.0-0.50)
[2024-01-07 11:53] LABS: ALBUMIN 2.8 g/dL (3.5-5.0); ANION GAP 14.3 MEQ/L (5-15); BILIRUBIN,TOTAL 0.8 mg/dL (0.2-1.3); Calcium 8.5 mg/dL (8.4-10.2); Creatinine 1 1.44 mg/dL (0.66-1.25); EST GLOMERULAR FILTRATION RATE 50.1 ML/MIN; MAGNESIUM 1.8 mg/dL (1.6-2.3); Potassium 4.5 mmol/L (3.5-5.1); Total Protein 5.8 g/dL (6.3-8.2)
[2024-01-07 12:12] LABS: INFLUENZA A NEGATIVE (NEGATIVE); INFLUENZA B NEGATIVE (NEGATIVE); RESPIRATORY SYNCTIAL VIRUS NEGATIVE (NEGATIVE); SARS-CoV-2 Xpert Express NEGATIVE (NEGATIVE)
[2024-01-07] MEDS ORDERED: Merrem IV ONE ×2 (12:30→22:34)
[2024-01-07] MEDS ORDERED: Sodium Chloride 100ML MINI-BAG PLUS 100 ML IV ONE ×2 (12:31→22:35)
[2024-01-07] MEDS: Merrem 1 GM in Sodium Chloride 100ML MINI-BAG PLUS 100 ML IV ONE (12:41)
--- NOTE | 2024-01-07 15:57 | PCM.HP ---
History of Present Illness - Chief Complaint Chief Complaint: weakness, Pneumonia, CAD Date: 01/07/24 History of Present Illness: is a 78 year old male with PMHX of pacemaker, CHF, heart transplant, arrhythmias, GERD, irritable bowel, CKD, obesity, and COPD with baseline 2LO2 at all times. Patient complains of weakness and SOB for the past few days. Patient was discharged from [facility] on 12/28/2023 with pneumonia and c-diff. Patient states he was went to the restroom, had a bought of diarrhea, got weak and slid down on the floor. Patient denies pain or discomfort. He rpeorts having diarrhea every other day and loose. Lungs noted to have wheezing throughout. He states he also feel 2 days ago in his garage and feel straight to the ground. He reports not injuring anything. Merrem and 1 L NS gave in the ER. Per she is unable to help him as she has become exhausted. Pt and spouse would like rehab placement for weakness. He reports normally being able to walk with a cane but now too weak to do so. He denies CP, Abd. pain, N/V. - Review of Systems Constitutional: Weakness, No Fever, No Chills Eyes: No Symptoms Ears, Nose, & Throat: No Symptoms Respiratory: Short Of Breath, Wheezing, No Cough Cardiac: No Chest Pain, No Edema, No Syncope Abdominal/Gastrointestinal: Diarrhea, No Abdominal Pain, No Nausea, No Vomiting Genitourinary Symptoms: No Dysuria Musculoskeletal: No Back Pain, No Neck Pain Skin: No Rash Neurological: No Dizziness, No Focal Weakness, No Sensory Changes Psychological: No Symptoms Endocrine: No Symptoms Hematologic/Lymphatic: No Symptoms Immunological/Allergic: No Symptoms Medications & Allergies Home Medications: Home Medication List Ferrous Sulfate 325 mg PO DAILY 08/17/21 [History Confirmed 01/07/24] Gabapentin [Neurontin ] 600 mg PO TID PRN 08/17/21 [History Confirmed 01/07/24] Mycophenolate Mofetil [Cellcept] 2 tab PO BID 08/17/21 [History Confirmed 01/07/24] Prednisone 5 mg [Deltasone 5 mg] 5 mg PO DAILY 08/17/21 [History Confirmed 01/07/24] Aspirin [Aspirin EC] 81 mg PO DAILY 02/21/23 [History Confirmed 01/07/24] Furosemide 40 mg [Lasix 40 MG] 20 mg PO DAILY PRN PRN 02/21/23 [History Confirmed 01/07/24] Potassium Chloride [Klor-Con M10] 10 meq PO DAILY PRN PRN 02/21/23 [History Confirmed 01/07/24] Sirolimus [Rapamune] 1 mg PO DAILY 02/21/23 [History Confirmed 01/07/24] Albuterol Common Canister [Ventolin Common Canister] 2 puff IH QID PRN 01/07/24 [History Confirmed 01/07/24] Atorvastatin Calcium [Lipitor] 20 mg PO HS 01/07/24 [History Confirmed 01/07/24] Keanu/D3/Mag11/Zinc/Electronic Musical Instrument Repairer/Rogelio/Bor [Caltrate 600+D Plus Tablet] 1 tab PO BID 01/07/24 [History Confirmed 01/07/24] Clotrimazole 10 mg MM TID 01/07/24 [History Confirmed 01/07/24] HydrALAzine HCL 25 MG TAB [Apresoline 25 MG TABLET] 25 mg PO BID 01/07/24 [History Confirmed 01/07/24] Sacubitril/Valsartan [Entresto 97 mg-103 mg Tablet] 1 tab PO BID 01/07/24 [History Confirmed 01/07/24] Tamsulosin HCl 0.4 mg [Flomax 0.4 MG] 0.4 mg PO DAILY 01/07/24 [History Confirmed 01/07/24] Vancomycin HCl [Vancomycin HCl Capsule] 125 mg PO QID 01/07/24 [History Confirmed 01/07/24] carvediloL [Carvedilol] 25 mg PO BID 01/07/24 [History Confirmed 01/07/24] Allergies/Adverse Reactions: Allergies Allergy/AdvReac Type Severity Reaction Status Date / Time No Known Drug Allergies Allergy Verified 01/07/24 16:00 - Past Medical History Past Medical History: Yes Neurological History: TIA ENT History: Cataracts Cardiac History: Arrhythmia, Congestive Heart Failure, Coronary Artery Disease, Deep Vein Thrombosis, Myocardial Infarction (HI) Respiratory History: CHF, COPD Endocrine Medical History: No Pertinent History Musculoskelatal History: Arthritis GI Medical History: GERD, Irritable Bowel History: No Pertinent History Pyscho-Social History: No Pertinent History - Past Surgical History Past Surgical History: Yes Neuro Surgical History: No Pertinent History Cardiac History: Internal Defibrillator, Pacemaker, Other Respiratory Surgery: No Pertinent History GI Surgical History: Cholecystectomy Genitourinary Surgical Hx: No Pertinent History Musculskeletal Surgical Hx: Orthopedic Surgery Male Surgical History: No Pertinent History Other Surgical History: right knee total replacement Aug 2021, Left knee replacement 2016, heart transplant 2007-[facility]. Right hip replaced 2017 - Social History Smoking Status: Former smoker How long have you smoked: 2006 Exposure to second hand smoke: No Alcohol: None Drug Use: none - Social Determinants of Health Will the patient participate in the screening: Yes Do you worry about a steady place to live?: No Do you have any problems with any of the following?: No known problems In the past 12 months,have you had to go without utilities?: No Have you or anyone in your house had to go without enough: No Transportation Issues: No Has anyone in your support network made you feel unsafe?: No - Physical Exam Vital Signs: Vital Signs - 24 hr Temp Pulse Resp BP BP Pulse Ox 01/07/24 15:10 90 23 01/07/24 15:00 91 H 29 H 01/07/24 14:50 91 H 32 H 01/07/24 14:40 93 H 21 01/07/24 14:30 92 H 29 H 01/07/24 14:20 93 H 14 01/07/24 14:11 92 L 01/07/24 14:10 94 H 29 H 01/07/24 14:00 93 H 15 01/07/24 13:50 93 H 28 H 01/07/24 13:40 96 H 17 01/07/24 13:30 93 H 28 H 96 01/07/24 13:20 94 H 32 H 96 01/07/24 13:10 94 H 21 95 01/07/24 13:00 93 H 23 97 01/07/24 12:50 93 H 21 96 01/07/24 12:40 92 H 13 95 01/07/24 12:33 94 H 10 L 95 01/07/24 11:31 95 H 15 136/88 95 01/07/24 10:02 98.6 F 94 H 35 H 135/111 92 L General Appearance: no apparent distress, alert, obese Neurologic Exam: alert, oriented x 3, cooperative, normal mood/affect, nml cerebellar function, nml station & gait, sensation nml, No motor deficits Eye Exam: PERRL/EOMI, eyes nml inspection Ears, Nose, Throat Exam: normal ENT inspection, TMs normal, pharynx normal, moist mucous membranes Neck Exam: normal inspection, non-tender, supple, full range of motion Respiratory Exam: wheezing (throughout), No respiratory distress Cardiovascular Exam: regular rate/rhythm, normal heart sounds, normal peripheral pulses Gastrointestinal/Abdomen Exam: soft, normal bowel sounds, No tenderness, No mass Back Exam: normal inspection, normal range of motion, No CVA tenderness, No vertebral tenderness Extremity Exam: normal inspection, normal range of motion, pelvis stable Skin Exam: normal color, warm, dry, No rash Lymphatic Exam: No adenopathy Results - Labs Lab/Micro Results: Lab Results-Last 24 Hours 01/07/24 01/07/24 01/07/24 Range/Units 10:17 10:55 10:55 WBC 7.0 (4.0-10.5) x10^3/uL RBC 3.72 L (4.1-5.6) x10^6/uL Hgb 9.7 L (12.5-18.0) g/dL Hct 30.0 L (42-50) % MCV 80.6 (78-100) fL MCH 26.1 (26-32) pg MCHC 32.3 (32-36) g/dL RDW 14.5 H (11.5-14.0) % Plt Count 293 (150-450) x10^3/uL MPV 9.3 (7.5-11.0) fL Gran % 70.1 H (36.0-66.0) % Immature Gran % (Auto) 0.7 H (0.00-0.4) % Nucleat RBC Rel Count 0.0 (0.00-0.1) % Eos # (Auto) 0.25 (0-0.5) x10^3/uL Immature Gran # (Auto) 0.05 H (0.00-0.03) x10^3u/L Absolute Lymphs (auto) 0.87 L (1.0-4.6) x10^3/uL Absolute Monos (auto) 0.88 (0.0-1.3) x10^3/uL Absolute Nucleated RBC 0.00 (0.00-0.01) x10^3u/L Lymphocytes % 12.4 L (24.0-44.0) % Monocytes % 12.6 H (0.0-12.0) % Eosinophils % 3.6 (0.00-5.0) % Basophils % 0.6 (0.0-0.4) % Absolute Granulocytes 4.91 (1.4-6.9) x10^3/uL Basophils # 0.04 (0-0.4) x10^3/uL PT (9.4-12.5) SECONDS INR (0.8-3.0) D-Dimer (0.0-0.50) mg/L pO2/FiO2 Ratio % VBG pH (7.32-7.42) VBG pCO2 at Pat Temp (42-55) mm/Hg VBG pO2 at Pat Temp (25-40) mm/Hg VBG HCO3 (22-28) meq/L VBG O2 Sat (Ron) (95-100) VBG Base Excess (-2.0-2.0) VBG Hemoglobin VBG Carboxyhemoglobin (0.0-6.9) % T HGB POC Potassium (3.5-5.1) Sodium 133 L (135-145) mmol/L Potassium 4.5 (3.5-5.1) mmol/L Chloride 98 (98-107) mmol/L Carbon Dioxide 25 (22-30) mmol/L Anion Gap 14.3 (5-15) MEQ/L BUN 26 H (9-20) mg/dL Creatinine 1.44 H (0.66-1.25) mg/dL Estimated GFR 50.1 ML/MIN Glucose 108 H (74-106) mg/dL Lactic Acid 1.1 (0.4-2.0) Calcium 8.5 (8.4-10.2) mg/dL Magnesium 1.8 (1.6-2.3) mg/dL Total Bilirubin 0.80 (0.2-1.3) mg/dL AST 86 H (17-59) U/L ALT 119 H (0-50) U/L Alkaline Phosphatase 520 H (38-126) U/L Troponin I (0.000-0.033) ng/mL NT-Pro-B Natriuret Pep 4210 (<300) pg/mL Serum Total Protein 5.8 L (6.3-8.2) g/dL Albumin 2.8 L (3.5-5.0) g/dL Influenza Type A Ag (NEGATIVE) Influenza Type B Ag (NEGATIVE) RSV (PCR) (NEGATIVE) SARS-CoV-2 (PCR) (NEGATIVE) 01/07/24 01/07/24 01/07/24 Range/Units 10:55 10:55 10:59 WBC (4.0-10.5) x10^3/uL RBC (4.1-5.6) x10^6/uL Hgb (12.5-18.0) g/dL Hct (42-50) % MCV (78-100) fL MCH (26-32) pg MCHC (32-36) g/dL RDW (11.5-14.0) % Plt Count (150-450) x10^3/uL MPV (7.5-11.0) fL Gran % (36.0-66.0) % Immature Gran % (Auto) (0.00-0.4) % Nucleat RBC Rel Count (0.00-0.1) % Eos # (Auto) (0-0.5) x10^3/uL Immature Gran # (Auto) (0.00-0.03) x10^3u/L Absolute Lymphs (auto) (1.0-4.6) x10^3/uL Absolute Monos (auto) (0.0-1.3) x10^3/uL Absolute Nucleated RBC (0.00-0.01) x10^3u/L Lymphocytes % (24.0-44.0) % Monocytes % (0.0-12.0) % Eosinophils % (0.00-5.0) % Basophils % (0.0-0.4) % Absolute Granulocytes (1.4-6.9) x10^3/uL Basophils # (0-0.4) x10^3/uL PT 11.9 (9.4-12.5) SECONDS INR 1.10 (0.8-3.0) D-Dimer 3.33 H* (0.0-0.50) mg/L pO2/FiO2 Ratio 40.0 % VBG pH 7.51 H (7.32-7.42) VBG pCO2 at Pat Temp 35 L (42-55) mm/Hg VBG pO2 at Pat Temp 26 (25-40) mm/Hg VBG HCO3 27.9 (22-28) meq/L VBG O2 Sat (Ron) 55.2 L (95-100) VBG Base Excess 4.8 H (-2.0-2.0) VBG Hemoglobin 10.3 VBG Carboxyhemoglobin 3.7 (0.0-6.9) % T HGB POC Potassium 4.4 (3.5-5.1) Sodium (135-145) mmol/L Potassium (3.5-5.1) mmol/L Chloride (98-107) mmol/L Carbon Dioxide (22-30) mmol/L Anion Gap (5-15) MEQ/L BUN (9-20) mg/dL Creatinine (0.66-1.25) mg/dL Estimated GFR ML/MIN Glucose (74-106) mg/dL Lactic Acid (0.4-2.0) Calcium (8.4-10.2) mg/dL Magnesium (1.6-2.3) mg/dL Total Bilirubin (0.2-1.3) mg/dL AST (17-59) U/L ALT (0-50) U/L Alkaline Phosphatase (38-126) U/L Troponin I 0.014 (0.000-0.033) ng/mL NT-Pro-B Natriuret Pep (<300) pg/mL Serum Total Protein (6.3-8.2) g/dL Albumin (3.5-5.0) g/dL Influenza Type A Ag (NEGATIVE) Influenza Type B Ag (NEGATIVE) RSV (PCR) (NEGATIVE) SARS-CoV-2 (PCR) (NEGATIVE) 01/07/24 Range/Units 11:00 WBC (4.0-10.5) x10^3/uL RBC (4.1-5.6) x10^6/uL Hgb (12.5-18.0) g/dL Hct (42-50) % MCV (78-100) fL MCH (26-32) pg MCHC (32-36) g/dL RDW (11.5-14.0) % Plt Count (150-450) x10^3/uL MPV (7.5-11.0) fL Gran % (36.0-66.0) % Immature Gran % (Auto) (0.00-0.4) % Nucleat RBC Rel Count (0.00-0.1) % Eos # (Auto) (0-0.5) x10^3/uL Immature Gran # (Auto) (0.00-0.03) x10^3u/L Absolute Lymphs (auto) (1.0-4.6) x10^3/uL Absolute Monos (auto) (0.0-1.3) x10^3/uL Absolute Nucleated RBC (0.00-0.01) x10^3u/L Lymphocytes % (24.0-44.0) % Monocytes % (0.0-12.0) % Eosinophils % (0.00-5.0) % Basophils % (0.0-0.4) % Absolute Granulocytes (1.4-6.9) x10^3/uL Basophils # (0-0.4) x10^3/uL PT (9.4-12.5) SECONDS INR (0.8-3.0) D-Dimer (0.0-0.50) mg/L pO2/FiO2 Ratio % VBG pH (7.32-7.42) VBG pCO2 at Pat Temp (42-55) mm/Hg VBG pO2 at Pat Temp (25-40) mm/Hg VBG HCO3 (22-28) meq/L VBG O2 Sat (Ron) (95-100) VBG Base Excess (-2.0-2.0) VBG Hemoglobin VBG Carboxyhemoglobin (0.0-6.9) % T HGB POC Potassium (3.5-5.1) Sodium (135-145) mmol/L Potassium (3.5-5.1) mmol/L Chloride (98-107) mmol/L Carbon Dioxide (22-30) mmol/L Anion Gap (5-15) MEQ/L BUN (9-20) mg/dL Creatinine (0.66-1.25) mg/dL Estimated GFR ML/MIN Glucose (74-106) mg/dL Lactic Acid (0.4-2.0) Calcium (8.4-10.2) mg/dL Magnesium (1.6-2.3) mg/dL Total Bilirubin (0.2-1.3) mg/dL AST (17-59) U/L ALT (0-50) U/L Alkaline Phosphatase (38-126) U/L Troponin I (0.000-0.033) ng/mL NT-Pro-B Natriuret Pep (<300) pg/mL Serum Total Protein (6.3-8.2) g/dL Albumin (3.5-5.0) g/dL Influenza Type A Ag NEGATIVE (NEGATIVE) Influenza Type B Ag NEGATIVE (NEGATIVE) RSV (PCR) NEGATIVE (NEGATIVE) SARS-CoV-2 (PCR) NEGATIVE (NEGATIVE) Microbiology 01/07/24 10:18 Blood Culture Gram Stain - Final Blood Not Reportable 01/07/24 10:18 Blood Culture Gram Stain - Final Blood Not Reportable - Radiology Impressions Radiology Exams & Impressions: Radiology Procedures Category Date Time Status CHEST 2 VIEWS (PA AND LAT) Stat Exams 01/07/24 10:18 Taken - Other Procedures and Tests Respiratory Therapy 01/07/24 14:12 Oxygen Nasal Cannula 2 lpm Assessment/Plan (1) Pneumonia Current Visit: Yes Status: Acute Qualifiers: Pneumonia type: due to unspecified organism Laterality: bilateral Lung location: lower lobe of lung Qualified Code(s): J18.9 - Pneumonia, unspecified organism Assessment & Plan: - Continue Merrem IV, duonebs - + wheezing - Chest XR pending - coughing clear sputum production - BC x2 pending - continue daily steroid dose as davian taking OP Code(s): J18.9 - PNEUMONIA, UNSPECIFIED ORGANISM (2) Weakness Current Visit: Yes Status: Acute Assessment & Plan: - 2:2 Pneumonia and C-dif infection with recent hospitalization - PT/OT eval - Pt spouse would like rehab placement Code(s): R53.1 - WEAKNESS (3) Clostridium difficile colitis Current Visit: Yes Status: Acute Assessment & Plan: - Dx at recent hospital stay at [facility] - Continue oral vancomycin - episode of diarrhea this AM - contact isolation precautions Code(s): A04.72 - ENTEROCOLITIS D/T CLOSTRIDIUM DIFFICILE, NOT SPCF RECUR (4) Acute on chronic renal failure Current Visit: Yes Status: Acute Assessment & Plan: - Creat 1.44- BL 1.28 - hold lasix and entresto for now. Code(s): N17.9 - ACUTE KIDNEY FAILURE, UNSPECIFIED; N18.9 - CHRONIC KIDNEY DISEASE, UNSPECIFIED (5) CHF (congestive heart failure) Current Visit: Yes Status: Chronic Assessment & Plan: - On 5lNC, BL 2lNC - Chest XR pending - BNP 4210 - no recent echo to review - IVF stopped from ER - no edema - hold entresto and lasix for now d/t NOHEMY - Continue coreg - Cellcept and potassium chloride on hold from cardilogy. Pt maximo needs potassium when taking Lasix and this is on hold as well. Code(s): I50.9 - HEART FAILURE, UNSPECIFIED (6) Obesity (BMI 30-39.9) Current Visit: Yes Status: Acute Assessment & Plan: - advised heart healthy diet and exercise control when feeling better. Code(s): E66.9 - OBESITY, UNSPECIFIED (7) Thrush Current Visit: Yes Status: Acute Assessment & Plan: - Continue clotrimazole - Pt states he was dx with this at recent hospital stay. Code(s): B37.0 - CANDIDAL STOMATITIS (8) D-dimer, elevated Current Visit: Yes Status: Acute Assessment & Plan: - D-dimer 3.33 - VQ scan in AM unless NOHEMY improves. - Therapeutic lovenox Code(s): R79.89 - OTHER SPECIFIED ABNORMAL FINDINGS OF BLOOD CHEMISTRY (9) Anemia Current Visit: Yes Status: Acute Assessment & Plan: - iron panel - Hgb 9.7- trend - Occult stool - Possibly 2:2 CKD Code(s): D64.9 - ANEMIA, UNSPECIFIED (10) COPD (chronic obstructive pulmonary disease) Current Visit: Yes Status: Chronic Assessment & Plan: - + wheezing - on 5lNC today, baseline 2lNC - no acute exacerbation VTE: Lovenox Next of KIN: D/C plan: 2-3 days- pending placement Code status: Full Telemedicine Encounter - Telemedicine Encounter Telemedicine Encounter: The entirety of this encounter was performed via Telemedicine" This visit was performed using real-time audio and video connection between my location and thepatients locationwith the assistance of a surrogateat the patients location. Written or verbal consent was obtained from the patient/guardian to perform this visit [email or web address]. Any patient questions regarding the telemedicine interaction were answered
[2024-01-07] MEDS ORDERED: VENTOLIN COMMON CANISTER IH PRN (17:09)
[2024-01-07 18:15] LABS: Iron 30 ug/dL (49-181); Iron Saturation 20 % (20-39); TIBC 152 ug/dL (261-497)
[2024-01-07 18:56] LABS: Vitamin B12 568 pg/mL (239-931)
[2024-01-07] MEDS: ENOXAPARIN SODIUM SQ SCH (19:01)
[2024-01-07] MEDS: DUONEB 0.5-3 MG/3 ml Neb IH SCH (19:07)
--- NOTE | 2024-01-07 19:46 | XRAY ---
Indication: Short of breath. Comparison: August 17, 2021 2 view chest demonstrates developing borderline cardiomegaly, pulmonary edema, and tiny left effusion favoring cardiac decompensation/CHF. Superimposed pneumonia not complete excluded. Bony thorax intact again with osteopenia, degenerative changes, sternotomy wires, and right AICD.
[2024-01-07 19:51] LABS: Ferritin 1740 ng/mL (17.9-464)
[2024-01-07] MEDS ORDERED: COREG 12.5 MG ONE (22:34)
[2024-01-07] MEDS: Merrem 1 GM in Sodium Chloride 100ML MINI-BAG PLUS 100 ML IV SCH (22:49)
[2024-01-07] MEDS: Apresoline 25 MG TABLET PO SCH (22:50)
[2024-01-07] MEDS: COREG 12.5 MG PO SCH (22:50)
[2024-01-07] MEDS: VANCOMYCIN HCL CAPSULE PO SCH (22:50)
[2024-01-07] MEDS: CAL PO SCH (23:04)
[2024-01-07] MEDS: TROCHE MM SCH (23:04)
[2024-01-07] MEDS: MANG PO SCH (23:04)
[2024-01-07] MEDS: D3 PO SCH (23:04)
[2024-01-07] MEDS: BOR PO SCH (23:04)
[2024-01-07] MEDS: [UNRECOGNIZED DRUG - OTHER] PO SCH (23:04)
[2024-01-07] MEDS: ZINC PO SCH (23:04)
[2024-01-07] MEDS: COP PO SCH (23:04)
[2024-01-07] MEDS: CLOTRIMAZOLE 10 MG MM SCH (23:04)
[2024-01-07] MEDS: MAG11 PO SCH (23:04)
[2024-01-08] MEDS ORDERED: Merrem IV ONE (05:52)
[2024-01-08] MEDS ORDERED: ENOXAPARIN SODIUM SQ ONE (05:53)
[2024-01-08] MEDS ORDERED: Sodium Chloride 100ML MINI-BAG PLUS 100 ML IV ONE (05:54)
[2024-01-08 07:24] LABS: Hematocrit 28.9 % (42-50); Hemoglobin 9.4 g/dL (12.5-18.0); Mean Cell Volume 80.7 fL (78-100); Mean Corpuscular Hemoglobin 26.3 pg (26-32); Mean Corpuscular Hgb Concent. 32.5 g/dL (32-36); Platelet Count 267 x10^3/uL (150-450); Red Blood Count 3.58 x10^6/uL (4.1-5.6); Red Cell Distribution Width 14.6 % (11.5-14.0); White Blood Count 5.6 x10^3/uL (4.0-10.5)
[2024-01-08] MEDS: NON-FORMULARY ITEM (Carvedilol [Carvedilol] 25 MG Tablet) PO SCH (07:27)
[2024-01-08] MEDS ORDERED: MEDICATION INTERVENTION MC SCH ×3 (07:30→09:45)
[2024-01-08 07:42] LABS: ALBUMIN 2.8 g/dL (3.5-5.0); BILIRUBIN,TOTAL 0.7 mg/dL (0.2-1.3); Calcium 8.6 mg/dL (8.4-10.2); Creatinine 1 1.36 mg/dL (0.66-1.25); EST GLOMERULAR FILTRATION RATE 53.6 ML/MIN; Potassium 3.7 mmol/L (3.5-5.1); Total Protein 6.2 g/dL (6.3-8.2)
[2024-01-08] MEDS: PATIENT OWN MEDICATION IH SCH (08:13)
[2024-01-08] MEDS: NEURONTIN PO PRN (09:10)
[2024-01-08] MEDS: TYLENOL 325 MG PO PRN (09:10)
[2024-01-08] MEDS: PATIENT OWN MEDICATION PO SCH ×4 (09:11→13:24)
[2024-01-08] MEDS: DELTASONE 5 MG PO SCH (09:11)
[2024-01-08] MEDS: FEOSOL 325 MG PO SCH (09:11)
[2024-01-08] MEDS: Flomax 0.4 MG PO SCH (09:11)
[2024-01-08] MEDS: ECOTRIN 81 MG PO SCH (09:11)
[2024-01-08 09:14] LABS: 027 TOX PROD PRESUMPTIVE NEGATIVE (NEGATIVE); TOXIGENIC C. DIFF ORG NEGATIVE (NEGATIVE)
[2024-01-08] MEDS ORDERED: SIROLIMUS 1 MG PO SCH (10:00)
[2024-01-08] MEDS ORDERED: [UNRECOGNIZED DRUG - MIXTURE] IH SCH (10:00)
[2024-01-08] MEDS ORDERED: NON-FORMULARY ITEM (Vibegron [Gemtesa] 75 MG Tablet) PO SCH (10:00)
[2024-01-08] MEDS ORDERED: Calcium 500MG W/Vit D Tablet PO SCH (10:00)
--- NOTE | 2024-01-08 11:03 | PCM.NOTE ---
Date and Time: 01/08/24 1053 Subjective Assessment: 01/07/24 is a 78 year old male with PMHX of pacemaker, CHF, heart transplant, arrhythmias, GERD, irritable bowel, Iron deficiency anemia, CKD, obesity, and COPD with baseline 2LO2 at all times. Patient complains of weakness and SOB for the past few days. Patient was discharged from [facility] on 12/28/2023 with pneumonia and c-diff. Patient states he was went to the restroom, had a bought of diarrhea, got weak and slid down on the floor. Patient denies pain or discomfort. He reports having diarrhea every other day and loose. Lungs noted to have wheezing throughout. He states he also fell 2 days ago in his garage and fell straight to the ground. He reports not injuring anything. Merrem and 1 L NS gave in the ER. Per she is unable to help him as she has become exhausted. Pt and spouse would like rehab placement for weakness. He reports normally being able to walk with a cane but now too weak to do so. He denies CP, Abd. pain, N/V. 01/08/24 Pt resting in bed. He has continued weakness. Stool was soft this am and c-dif testing negative. However, will continue oral Vancomycin treatment course until complete. Pt unable to tolerate lower dose of O2 and became SOB this am. Oxygen increased to 5L oxymizer. Pt is pending a VQ scan for further evaluation of SOB and elevated d-dimer. Pt does have known pneumonia will continue Merrem as has increased oxygen demand since most recent d/c from other hospital. AST and ALT remain elevated will order US for further evaluation. He denies CP, abd.pain, N/V. - Review of Systems Constitutional: Weakness, No Fever, No Chills Eyes: No Symptoms Ears, Nose, & Throat: No Symptoms Respiratory: Short Of Breath, No Cough Cardiac: No Chest Pain, No Edema, No Syncope Abdominal/Gastrointestinal: No Abdominal Pain, No Nausea, No Vomiting, No Diarrhea Genitourinary Symptoms: No Dysuria Musculoskeletal: No Back Pain, No Neck Pain Skin: No Rash Neurological: Tremors, No Dizziness, No Focal Weakness, No Sensory Changes Psychological: No Symptoms, Anxiety Endocrine: No Symptoms Hematologic/Lymphatic: No Symptoms Immunological/Allergic: No Symptoms Objective Exam General Appearance: no apparent distress, alert, obese Neurologic Exam: alert, oriented x 3, cooperative, normal mood/affect, nml cerebellar function, sensation nml, other (tremors), No motor deficits Skin Exam: normal color, warm, dry Eye Exam: PERRL, EOMI, eyes nml inspection Ears, Nose, Throat Exam: normal ENT inspection, pharynx normal, moist mucous membranes Neck Exam: normal inspection, non-tender, supple, full range of motion Respiratory Exam: wheezing, No respiratory distress Cardiovascular Exam: regular rate/rhythm, normal heart sounds Gastrointestinal/Abdomen Exam: soft, No tenderness, No mass Extremity Exam: normal inspection, normal range of motion Back Exam: normal inspection, normal range of motion, No CVA tenderness, No vertebral tenderness Male Genitalia Exam: deferred Rectal Exam: deferred Objective Data Vital Signs: Vital Signs - 24 hr Temp Pulse Resp BP BP Pulse Ox 01/08/24 07:32 98.4 F 73 16 154/78 94 L 01/08/24 06:23 74 16 93 L 01/08/24 04:00 96.8 F 73 22 153/70 98 01/07/24 23:41 96.8 F 85 24 120/58 96 01/07/24 19:44 98.6 F 87 26 H 131/62 92 L 01/07/24 19:17 88 18 92 L 01/07/24 17:30 97 H 18 98 01/07/24 16:20 100.2 F 95 H 18 153/70 95 01/07/24 15:46 100.2 F 95 H 22 153/70 95 01/07/24 15:10 90 23 01/07/24 15:00 91 H 29 H 01/07/24 14:50 91 H 32 H 01/07/24 14:40 93 H 21 01/07/24 14:30 92 H 29 H 01/07/24 14:20 93 H 14 01/07/24 14:11 92 L 01/07/24 14:10 94 H 29 H 01/07/24 14:00 93 H 15 01/07/24 13:50 93 H 28 H 01/07/24 13:40 96 H 17 01/07/24 13:30 93 H 28 H 96 01/07/24 13:20 94 H 32 H 96 01/07/24 13:10 94 H 21 95 01/07/24 13:00 93 H 23 97 01/07/24 12:50 93 H 21 96 01/07/24 12:40 92 H 13 95 01/07/24 12:33 94 H 10 L 95 01/07/24 11:31 95 H 15 136/88 95 Pain Assessment - Last Documented Pain Intensity 2 Pain Scale Used 0-10 Pain Scale Intake and Output: Intake & Output 01/05/24 01/06/24 01/07/24 01/08/24 11:59 11:59 11:59 11:59 Intake Total 2179 Output Total 1200 Balance 979 Weight 123.2 kg 116 kg Lab Results: Lab Results-Last 24 Hours 01/07/24 01/07/24 01/07/24 Range/Units 10:17 10:55 10:55 WBC 7.0 (4.0-10.5) x10^3/uL RBC 3.72 L (4.1-5.6) x10^6/uL Hgb 9.7 L (12.5-18.0) g/dL Hct 30.0 L (42-50) % MCV 80.6 (78-100) fL MCH 26.1 (26-32) pg MCHC 32.3 (32-36) g/dL RDW 14.5 H (11.5-14.0) % Plt Count 293 (150-450) x10^3/uL MPV 9.3 (7.5-11.0) fL Gran % 70.1 H (36.0-66.0) % Immature Gran % (Auto) 0.7 H (0.00-0.4) % Nucleat RBC Rel Count 0.0 (0.00-0.1) % Eos # (Auto) 0.25 (0-0.5) x10^3/uL Immature Gran # (Auto) 0.05 H (0.00-0.03) x10^3u/L Absolute Lymphs (auto) 0.87 L (1.0-4.6) x10^3/uL Absolute Monos (auto) 0.88 (0.0-1.3) x10^3/uL Absolute Nucleated RBC 0.00 (0.00-0.01) x10^3u/L Lymphocytes % 12.4 L (24.0-44.0) % Monocytes % 12.6 H (0.0-12.0) % Eosinophils % 3.6 (0.00-5.0) % Basophils % 0.6 (0.0-0.4) % Absolute Granulocytes 4.91 (1.4-6.9) x10^3/uL Basophils # 0.04 (0-0.4) x10^3/uL PT (9.4-12.5) SECONDS INR (0.8-3.0) D-Dimer (0.0-0.50) mg/L pO2/FiO2 Ratio % VBG pH (7.32-7.42) VBG pCO2 at Pat Temp (42-55) mm/Hg VBG pO2 at Pat Temp (25-40) mm/Hg VBG HCO3 (22-28) meq/L VBG O2 Sat (Ron) (95-100) VBG Base Excess (-2.0-2.0) VBG Hemoglobin VBG Carboxyhemoglobin (0.0-6.9) % T HGB POC Potassium (3.5-5.1) Sodium 133 L (135-145) mmol/L Potassium 4.5 (3.5-5.1) mmol/L Chloride 98 (98-107) mmol/L Carbon Dioxide 25 (22-30) mmol/L Anion Gap 14.3 (5-15) MEQ/L BUN 26 H (9-20) mg/dL Creatinine 1.44 H (0.66-1.25) mg/dL Estimated GFR 50.1 ML/MIN Glucose 108 H (74-106) mg/dL Lactic Acid 1.1 (0.4-2.0) Calcium 8.5 (8.4-10.2) mg/dL Magnesium 1.8 (1.6-2.3) mg/dL Iron (49-181) ug/dL TIBC (261-497) ug/dL Iron Saturation (20-39) % Ferritin (17.9-464) ng/mL Total Bilirubin 0.80 (0.2-1.3) mg/dL AST 86 H (17-59) U/L ALT 119 H (0-50) U/L Alkaline Phosphatase 520 H (38-126) U/L Troponin I (0.000-0.033) ng/mL NT-Pro-B Natriuret Pep 4210 (<300) pg/mL Serum Total Protein 5.8 L (6.3-8.2) g/dL Albumin 2.8 L (3.5-5.0) g/dL Vitamin B12 (239-931) pg/mL Folic Acid C. difficile Screen (NEGATIVE) C.difficile 027-NAP1-B1 (NEGATIVE) Influenza Type A Ag (NEGATIVE) Influenza Type B Ag (NEGATIVE) RSV (PCR) (NEGATIVE) SARS-CoV-2 (PCR) (NEGATIVE) 01/07/24 01/07/24 01/07/24 Range/Units 10:55 10:55 10:55 WBC (4.0-10.5) x10^3/uL RBC (4.1-5.6) x10^6/uL Hgb (12.5-18.0) g/dL Hct (42-50) % MCV (78-100) fL MCH (26-32) pg MCHC (32-36) g/dL RDW (11.5-14.0) % Plt Count (150-450) x10^3/uL MPV (7.5-11.0) fL Gran % (36.0-66.0) % Immature Gran % (Auto) (0.00-0.4) % Nucleat RBC Rel Count (0.00-0.1) % Eos # (Auto) (0-0.5) x10^3/uL Immature Gran # (Auto) (0.00-0.03) x10^3u/L Absolute Lymphs (auto) (1.0-4.6) x10^3/uL Absolute Monos (auto) (0.0-1.3) x10^3/uL Absolute Nucleated RBC (0.00-0.01) x10^3u/L Lymphocytes % (24.0-44.0) % Monocytes % (0.0-12.0) % Eosinophils % (0.00-5.0) % Basophils % (0.0-0.4) % Absolute Granulocytes (1.4-6.9) x10^3/uL Basophils # (0-0.4) x10^3/uL PT 11.9 (9.4-12.5) SECONDS INR 1.10 (0.8-3.0) D-Dimer 3.33 H* (0.0-0.50) mg/L pO2/FiO2 Ratio % VBG pH (7.32-7.42) VBG pCO2 at Pat Temp (42-55) mm/Hg VBG pO2 at Pat Temp (25-40) mm/Hg VBG HCO3 (22-28) meq/L VBG O2 Sat (Ron) (95-100) VBG Base Excess (-2.0-2.0) VBG Hemoglobin VBG Carboxyhemoglobin (0.0-6.9) % T HGB POC Potassium (3.5-5.1) Sodium (135-145) mmol/L Potassium (3.5-5.1) mmol/L Chloride (98-107) mmol/L Carbon Dioxide (22-30) mmol/L Anion Gap (5-15) MEQ/L BUN (9-20) mg/dL Creatinine (0.66-1.25) mg/dL Estimated GFR ML/MIN Glucose (74-106) mg/dL Lactic Acid (0.4-2.0) Calcium (8.4-10.2) mg/dL Magnesium (1.6-2.3) mg/dL Iron (49-181) ug/dL TIBC (261-497) ug/dL Iron Saturation (20-39) % Ferritin 1740 H (17.9-464) ng/mL Total Bilirubin (0.2-1.3) mg/dL AST (17-59) U/L ALT (0-50) U/L Alkaline Phosphatase (38-126) U/L Troponin I 0.014 (0.000-0.033) ng/mL NT-Pro-B Natriuret Pep (<300) pg/mL Serum Total Protein (6.3-8.2) g/dL Albumin (3.5-5.0) g/dL Vitamin B12 568 (239-931) pg/mL Folic Acid Pending C. difficile Screen (NEGATIVE) C.difficile 027-NAP1-B1 (NEGATIVE) Influenza Type A Ag (NEGATIVE) Influenza Type B Ag (NEGATIVE) RSV (PCR) (NEGATIVE) SARS-CoV-2 (PCR) (NEGATIVE) 01/07/24 01/07/24 01/07/24 Range/Units 10:55 10:59 11:00 WBC (4.0-10.5) x10^3/uL RBC (4.1-5.6) x10^6/uL Hgb (12.5-18.0) g/dL Hct (42-50) % MCV (78-100) fL MCH (26-32) pg MCHC (32-36) g/dL RDW (11.5-14.0) % Plt Count (150-450) x10^3/uL MPV (7.5-11.0) fL Gran % (36.0-66.0) % Immature Gran % (Auto) (0.00-0.4) % Nucleat RBC Rel Count (0.00-0.1) % Eos # (Auto) (0-0.5) x10^3/uL Immature Gran # (Auto) (0.00-0.03) x10^3u/L Absolute Lymphs (auto) (1.0-4.6) x10^3/uL Absolute Monos (auto) (0.0-1.3) x10^3/uL Absolute Nucleated RBC (0.00-0.01) x10^3u/L Lymphocytes % (24.0-44.0) % Monocytes % (0.0-12.0) % Eosinophils % (0.00-5.0) % Basophils % (0.0-0.4) % Absolute Granulocytes (1.4-6.9) x10^3/uL Basophils # (0-0.4) x10^3/uL PT (9.4-12.5) SECONDS INR (0.8-3.0) D-Dimer (0.0-0.50) mg/L pO2/FiO2 Ratio 40.0 % VBG pH 7.51 H (7.32-7.42) VBG pCO2 at Pat Temp 35 L (42-55) mm/Hg VBG pO2 at Pat Temp 26 (25-40) mm/Hg VBG HCO3 27.9 (22-28) meq/L VBG O2 Sat (Ron) 55.2 L (95-100) VBG Base Excess 4.8 H (-2.0-2.0) VBG Hemoglobin 10.3 VBG Carboxyhemoglobin 3.7 (0.0-6.9) % T HGB POC Potassium 4.4 (3.5-5.1) Sodium (135-145) mmol/L Potassium (3.5-5.1) mmol/L Chloride (98-107) mmol/L Carbon Dioxide (22-30) mmol/L Anion Gap (5-15) MEQ/L BUN (9-20) mg/dL Creatinine (0.66-1.25) mg/dL Estimated GFR ML/MIN Glucose (74-106) mg/dL Lactic Acid (0.4-2.0) Calcium (8.4-10.2) mg/dL Magnesium (1.6-2.3) mg/dL Iron 30 L (49-181) ug/dL TIBC 152 L (261-497) ug/dL Iron Saturation 20 (20-39) % Ferritin (17.9-464) ng/mL Total Bilirubin (0.2-1.3) mg/dL AST (17-59) U/L ALT (0-50) U/L Alkaline Phosphatase (38-126) U/L Troponin I (0.000-0.033) ng/mL NT-Pro-B Natriuret Pep (<300) pg/mL Serum Total Protein (6.3-8.2) g/dL Albumin (3.5-5.0) g/dL Vitamin B12 (239-931) pg/mL Folic Acid C. difficile Screen (NEGATIVE) C.difficile 027-NAP1-B1 (NEGATIVE) Influenza Type A Ag NEGATIVE (NEGATIVE) Influenza Type B Ag NEGATIVE (NEGATIVE) RSV (PCR) NEGATIVE (NEGATIVE) SARS-CoV-2 (PCR) NEGATIVE (NEGATIVE) 01/08/24 01/08/24 01/08/24 Range/Units 07:20 07:20 08:29 WBC 5.6 (4.0-10.5) x10^3/uL RBC 3.58 L (4.1-5.6) x10^6/uL Hgb 9.4 L (12.5-18.0) g/dL Hct 28.9 L (42-50) % MCV 80.7 (78-100) fL MCH 26.3 (26-32) pg MCHC 32.5 (32-36) g/dL RDW 14.6 H (11.5-14.0) % Plt Count 267 (150-450) x10^3/uL MPV 9.0 (7.5-11.0) fL Gran % (36.0-66.0) % Immature Gran % (Auto) (0.00-0.4) % Nucleat RBC Rel Count (0.00-0.1) % Eos # (Auto) (0-0.5) x10^3/uL Immature Gran # (Auto) (0.00-0.03) x10^3u/L Absolute Lymphs (auto) (1.0-4.6) x10^3/uL Absolute Monos (auto) (0.0-1.3) x10^3/uL Absolute Nucleated RBC (0.00-0.01) x10^3u/L Lymphocytes % (24.0-44.0) % Monocytes % (0.0-12.0) % Eosinophils % (0.00-5.0) % Basophils % (0.0-0.4) % Absolute Granulocytes (1.4-6.9) x10^3/uL Basophils # (0-0.4) x10^3/uL PT (9.4-12.5) SECONDS INR (0.8-3.0) D-Dimer (0.0-0.50) mg/L pO2/FiO2 Ratio % VBG pH (7.32-7.42) VBG pCO2 at Pat Temp (42-55) mm/Hg VBG pO2 at Pat Temp (25-40) mm/Hg VBG HCO3 (22-28) meq/L VBG O2 Sat (Ron) (95-100) VBG Base Excess (-2.0-2.0) VBG Hemoglobin VBG Carboxyhemoglobin (0.0-6.9) % T HGB POC Potassium (3.5-5.1) Sodium 134 L (135-145) mmol/L Potassium 3.7 (3.5-5.1) mmol/L Chloride 100 (98-107) mmol/L Carbon Dioxide 27 (22-30) mmol/L Anion Gap 10.0 (5-15) MEQ/L BUN 25 H (9-20) mg/dL Creatinine 1.36 H (0.66-1.25) mg/dL Estimated GFR 53.6 ML/MIN Glucose 93 (74-106) mg/dL Lactic Acid (0.4-2.0) Calcium 8.6 (8.4-10.2) mg/dL Magnesium (1.6-2.3) mg/dL Iron (49-181) ug/dL TIBC (261-497) ug/dL Iron Saturation (20-39) % Ferritin (17.9-464) ng/mL Total Bilirubin 0.70 (0.2-1.3) mg/dL AST 75 H (17-59) U/L ALT 114 H (0-50) U/L Alkaline Phosphatase 475 H (38-126) U/L Troponin I (0.000-0.033) ng/mL NT-Pro-B Natriuret Pep (<300) pg/mL Serum Total Protein 6.2 L (6.3-8.2) g/dL Albumin 2.8 L (3.5-5.0) g/dL Vitamin B12 (239-931) pg/mL Folic Acid C. difficile Screen NEGATIVE (NEGATIVE) C.difficile 027-NAP1-B1 PRESUMPTIVE NEGATIVE (NEGATIVE) Influenza Type A Ag (NEGATIVE) Influenza Type B Ag (NEGATIVE) RSV (PCR) (NEGATIVE) SARS-CoV-2 (PCR) (NEGATIVE) Radiology Exams: Radiology Procedures Category Date Time Status CHEST 2 VIEWS (PA AND LAT) Stat Exams 01/07/24 10:18 Completed PULMONARY PERF VENTILATION [NUCMED] Routine Exams 01/08/24 09:28 Ordered US ABDOMEN LIMITED [ABDOMINAL-LIMITED] [US] Routine Exams 01/08/24 09:26 Ordered Assessment/Plan (1) Pneumonia Current Visit: Yes Status: Acute Qualifiers: Pneumonia type: due to unspecified organism Laterality: bilateral Lung location: lower lobe of lung Qualified Code(s): J18.9 - Pneumonia, unspecified organism Code(s): J18.9 - PNEUMONIA, UNSPECIFIED ORGANISM (2) Weakness Current Visit: Yes Status: Acute Code(s): R53.1 - WEAKNESS (3) Clostridium difficile colitis Current Visit: Yes Status: Acute Code(s): A04.72 - ENTEROCOLITIS D/T CLOSTRIDIUM DIFFICILE, NOT SPCF RECUR (4) Acute on chronic renal failure Current Visit: Yes Status: Acute Code(s): N17.9 - ACUTE KIDNEY FAILURE, UNSPECIFIED; N18.9 - CHRONIC KIDNEY DISEASE, UNSPECIFIED (5) CHF (congestive heart failure) Current Visit: Yes Status: Chronic Code(s): I50.9 - HEART FAILURE, UNSPECIFIED (6) Obesity (BMI 30-39.9) Current Visit: Yes Status: Acute Code(s): E66.9 - OBESITY, UNSPECIFIED (7) Thrush Current Visit: Yes Status: Acute Code(s): B37.0 - CANDIDAL STOMATITIS (8) D-dimer, elevated Current Visit: Yes Status: Acute Code(s): R79.89 - OTHER SPECIFIED ABNORMAL FINDINGS OF BLOOD CHEMISTRY (9) Anemia Current Visit: Yes Status: Acute Qualifiers: Anemia type: iron deficiency Iron deficiency anemia type: unspecified iron deficiency Qualified Code(s): D50.9 - Iron deficiency anemia, unspecified Code(s): D64.9 - ANEMIA, UNSPECIFIED (10) COPD (chronic obstructive pulmonary disease) Current Visit: Yes Status: Chronic Assessment & Plan: (1) Pneumonia Current Visit: Yes Status: Acute Qualifiers: Pneumonia type: due to unspecified organism Laterality: bilateral Lung location: lower lobe of lung Qualified Code(s): J18.9 - Pneumonia, unspecified organism Assessment & Plan: - Continue Merrem IV, duonebs - + wheezing - Chest XR pending - coughing clear sputum production - BC x2 pending - continue daily steroid dose as he was taking OP 5/6 - Pt was down to 3lNC overnight. He became SOB this am and had to be placed on 5L oxymizer. - CXR 01/06 2 view chest demonstrates developing borderline cardiomegaly, pulmonary edema, and tiny left effusion favoring cardiac decompensation/CHF. Superimposed pneumonia not complete excluded. Bony thorax intact again with osteopenia, degenerative changes, sternotomy wires, and right AICD. Code(s): J18.9 - PNEUMONIA, UNSPECIFIED ORGANISM (2) Weakness Current Visit: Yes Status: Acute Assessment & Plan: - 2:2 Pneumonia and recent C-dif infection with recent hospitalization - PT/OT eval - Pt spouse would like rehab placement Code(s): R53.1 - WEAKNESS (3) Clostridium difficile colitis Current Visit: Yes Status: Acute Assessment & Plan: - Dx at recent hospital stay at [facility] - Continue oral vancomycin - episode of diarrhea this AM - contact isolation precautions 5/6 - C-dif testing negative - remove from isolation - Continue oral Vancomycin course until complete. Code(s): A04.72 - ENTEROCOLITIS D/T CLOSTRIDIUM DIFFICILE, NOT SPCF RECUR (4) Acute on chronic renal failure Current Visit: Yes Status: Acute Assessment & Plan: - Creat 1.44- BL 1.28 - hold lasix and entresto for now. 01/07 - Creat 1.36- improved - did have to give 1x dose of IV Lasix today d/t increased SOB and CXR shows CHF decompensation Code(s): N17.9 - ACUTE KIDNEY FAILURE, UNSPECIFIED; N18.9 - CHRONIC KIDNEY DISEASE, UNSPECIFIED (5) CHF (congestive heart failure) Current Visit: Yes Status: Chronic Assessment & Plan: - On 5lNC, BL 2lNC - Chest XR pending - BNP 4210 - no recent echo to review - IVF stopped from ER - no edema - hold entresto and lasix for now d/t NOHEYM - Continue coreg - Cellcept and potassium chloride on hold from cardilogy. Pt maximo needs po tassium when taking Lasix and this is on hold as well. 01/07 - As seen on CXR- see results above - did have to give 1x dose of IV Lasix today d/t increased SOB and CXR shows CHF decompensation Code(s): I50.9 - HEART FAILURE, UNSPECIFIED (6) Obesity (BMI 30-39.9) Current Visit: Yes Status: Acute Assessment & Plan: - advised heart healthy diet and exercise control when feeling better. Code(s): E66.9 - OBESITY, UNSPECIFIED (7) Thrush Current Visit: Yes Status: Acute Assessment & Plan: - Continue clotrimazole - Pt states he was dx with this at recent hospital stay. 01/07 - improved Code(s): B37.0 - CANDIDAL STOMATITIS (8) D-dimer, elevated Current Visit: Yes Status: Acute Assessment & Plan: - D-dimer 3.33 - VQ scan in AM unless NOHEMY improves. - Therapeutic Lovenox / - VQ scan if able to tolerate Code(s): R79.89 - OTHER SPECIFIED ABNORMAL FINDINGS OF BLOOD CHEMISTRY (9) Anemia Current Visit: Yes Status: Acute Assessment & Plan: - iron panel - Hgb 9.7- trend - Occult stool - Possibly 2:2 CKD 01/07 - Labs show iron def anemia- chronic - Continue oral ferrous sulfate - Stool occult pending - Hgb 9.4- trend Code(s): D64.9 - ANEMIA, UNSPECIFIED (10) COPD (chronic obstructive pulmonary disease) Current Visit: Yes Status: Chronic Assessment & Plan: - + wheezing - on 5lNC today, baseline 2lNC - no acute exacerbation 01/07 - O2 down to 3lNC overnight, increased O2 demand this Am and back up to 5L - Wheezing improved from yesterday - Continue jon[facility] breo (11) Hyponatremia Current Visit: Yes Status: Acute Assessment & Plan: - Mild 134- trend Code(s): E87.1 - HYPO-OSMOLALITY AND HYPONATREMIA (12) Abnormal AST and ALT Current Visit: Yes Status: Acute Assessment & Plan: - 01/06 AST 86, ALT 119, alk phos 475- 2:2 infection? - 01/07 AST 86. ALT 75, Alk phos 475- improved - Denies abd pain - US abd- pending VTE: Lovenox Next of KIN: D/C plan: 2-3 days- pending placement Code status: Full Code(s): R74.8 - ABNORMAL LEVELS OF OTHER SERUM ENZYMES
[2024-01-08] MEDS: COREG 12.5 MG PO SCH (11:10)
[2024-01-08] MEDS: THERAGRAN MULTIVITAMIN PO SCH (11:10)
[2024-01-08 11:32] LABS: IFOB TEST RESULTS NEGATIVE (NEGATIVE)
[2024-01-08] MEDS ORDERED: Lasix 40 MG/4 ML ONE (11:36)
[2024-01-08] MEDS: Klor Con PO ONE (11:37)
--- NOTE | 2024-01-08 15:43 | XRAY ---
Indication: Elevated d-dimer. Chest pain. Short of breath. Comparison: None Patient received 5 mCi technetium 99m MAA for the perfusion portion of the exam. Patient inhaled 34 mCi of aerosolized technetium 99 DTPA for the ventilation portion of the exam. Multiple planar images obtained. Perfusion images demonstrates normal radiopharmaceutical activity bilaterally. No focal segmental or subsegmental perfusion defects. Subtle increased radiopharmaceutical activity right lower lobe due to shine through from earlier obtained ventilation images. Ventilation images also demonstrates radiopharmaceutical activity in both lungs. Right lower lobe demonstrates patchy increased radiopharmaceutical activity of uncertain clinical significance. Also radiopharmaceutical activity in the GI system from ingested radiopharmaceutical. Impression: 1. Nuclear medicine ventilation/perfusion scan negative for mismatch. No perfusion defects. 2. Right lower lobe patchy increased radiopharmaceutical activity on ventilation images. Finding is of uncertain clinical significance.
[2024-01-08] MEDS: Lasix 20 MG/2 ML IV ONE (15:51)
--- NOTE | 2024-01-08 16:47 | XRAY ---
Indication: Elevated AST/ALT. Cholecystectomy. Two-dimensional limited right upper quadrant abdominal sonogram performed. Comparison: None Visualized liver and pancreas are homogeneous in echogenicity. No organomegaly or free fluid. Gallbladder surgically absent. Common bile duct measures 5.4 mm. No intrahepatic biliary distention. Right kidney measures 17.8 x 5.7 x 5.9 cm and demonstrates 2 large anechoic cysts, largest upper pole measure 9.3 x 8.8 x 9.9 cm. Impression: Large right renal cysts. Cholecystectomy. Remaining right upper quadrant sonogram is negative.
[2024-01-08] MEDS ORDERED: ENOXAPARIN SODIUM SQ SCH (18:00)
[2024-01-08] MEDS: Mucinex 600MG ER Tabs PO SCH (21:46)
[2024-01-09 04:57] LABS: Hematocrit 27.2 % (42-50); Hemoglobin 8.6 g/dL (12.5-18.0); Mean Cell Volume 81.7 fL (78-100); Mean Corpuscular Hemoglobin 25.8 pg (26-32); Mean Corpuscular Hgb Concent. 31.6 g/dL (32-36); Platelet Count 267 x10^3/uL (150-450); Red Blood Count 3.33 x10^6/uL (4.1-5.6); Red Cell Distribution Width 14.6 % (11.5-14.0); White Blood Count 5.2 x10^3/uL (4.0-10.5)
[2024-01-09 05:18] LABS: ALBUMIN 2.6 g/dL (3.5-5.0); ANION GAP 8.6 MEQ/L (5-15); BILIRUBIN,TOTAL 0.7 mg/dL (0.2-1.3); Calcium 8.5 mg/dL (8.4-10.2); Creatinine 1 1.46 mg/dL (0.66-1.25); EST GLOMERULAR FILTRATION RATE 49.2 ML/MIN; Potassium 4.2 mmol/L (3.5-5.1); Total Protein 5.8 g/dL (6.3-8.2)
[2024-01-09] MEDS: ENOXAPARIN SODIUM SQ SCH (10:55)
[2024-01-09] MEDS ORDERED: Lasix 20 MG/2 ML IV ONE (11:08)
--- NOTE | 2024-01-09 11:42 | PCM.NOTE ---
Date and Time: 01/09/24 1129 Subjective Assessment: 01/07/24 is a 78 year old male with PMHX of pacemaker, CHF, heart transplant, arrhythmias, GERD, irritable bowel, Iron deficiency anemia, CKD, obesity, and COPD with baseline 2LO2 at all times. Patient complains of weakness and SOB for the past few days. Patient was discharged from [facility] on 12/28/2023 with pneumonia and c-diff. Patient states he was went to the restroom, had a bought of diarrhea, got weak and slid down on the floor. Patient denies pain or discomfort. He reports having diarrhea every other day and loose. Lungs noted to have wheezing throughout. He states he also fell 2 days ago in his garage and fell straight to the ground. He reports not injuring anything. Merrem and 1 L NS gave in the ER. Per she is unable to help him as she has become exhausted. Pt and spouse would like rehab placement for weakness. He reports normally being able to walk with a cane but now too weak to do so. He denies CP, Abd. pain, N/V. 01/08/24 Pt resting in bed. He has continued weakness. Stool was soft this am and c-dif testing negative. However, will continue oral Vancomycin treatment course until complete. Pt unable to tolerate lower dose of O2 and became SOB this am. Oxygen increased to 5L oxymizer. Pt is pending a VQ scan for further evaluation of SOB and elevated d-dimer. Pt does have known pneumonia will continue Merrem as has increased oxygen demand since most recent d/c from other hospital. AST and ALT remain elevated will order US for further evaluation. He denies CP, abd.pain, N/V. 01/09/24 Pt sitting up in the chair. He is feeling much better. He is c/o nasal congestion and a dry cough. Saline nasal spray added PRN per request. Discussed US, CXR, and VQ results that were completed yesterday with pt and spouse. Discussed pt will need Op f/u with urology for further evaluation of cyst on right kidney. Continue antibiotics, steroids, duonebs. Pt denies CP, abd. pain, N/V/D. - Review of Systems Constitutional: No Fever, No Chills Eyes: No Symptoms Ears, Nose, & Throat: No Symptoms Respiratory: Cough, Short Of Breath Cardiac: No Chest Pain, No Edema, No Syncope Abdominal/Gastrointestinal: No Abdominal Pain, No Nausea, No Vomiting, No Diarrhea Genitourinary Symptoms: No Dysuria Musculoskeletal: No Back Pain, No Neck Pain Skin: No Rash Neurological: No Dizziness, No Focal Weakness, No Sensory Changes Psychological: No Symptoms Endocrine: No Symptoms Hematologic/Lymphatic: No Symptoms Immunological/Allergic: No Symptoms Objective Exam General Appearance: no apparent distress, alert, obese Neurologic Exam: alert, oriented x 3, cooperative, normal mood/affect, nml cerebellar function, sensation nml, No motor deficits Skin Exam: normal color, warm, dry Eye Exam: PERRL, EOMI, eyes nml inspection Ears, Nose, Throat Exam: normal ENT inspection, pharynx normal, moist mucous membranes Neck Exam: normal inspection, non-tender, supple, full range of motion Respiratory Exam: normal breath sounds, lungs clear, wheezing, No respiratory distress Cardiovascular Exam: regular rate/rhythm, normal heart sounds Gastrointestinal/Abdomen Exam: soft, No tenderness, No mass Extremity Exam: normal inspection, normal range of motion Back Exam: normal inspection, normal range of motion, No CVA tenderness, No vertebral tenderness Male Genitalia Exam: deferred Rectal Exam: deferred Objective Data Vital Signs: Vital Signs - 24 hr Temp Pulse Resp BP Pulse Ox 01/09/24 08:00 97.9 F 87 17 155/72 91 L 01/09/24 07:45 79 16 92 L 01/09/24 04:00 97.6 F 76 16 151/67 100 01/09/24 01:00 85 97 01/08/24 23:12 99.1 F 87 18 132/62 100 01/08/24 19:17 98.4 F 85 18 144/69 90 L 01/08/24 19:16 83 20 92 L 01/08/24 15:52 98.5 F 96 H 16 153/70 90 L 01/08/24 13:25 78 16 95 01/08/24 12:00 95 Pain Assessment - Last Documented Pain Intensity 2 Pain Scale Used 0-10 Pain Scale Intake and Output: Intake & Output 01/06/24 01/07/24 01/08/24 01/09/24 11:59 11:59 11:59 11:59 Intake Total 2179 840 Output Total 1200 2300 Balance 979 -1460 Weight 123.2 kg 116 kg Lab Results: Lab Results-Last 24 Hours 01/07/24 01/08/24 01/08/24 Range/Units 10:55 05:00 08:29 WBC (4.0-10.5) x10^3/uL RBC (4.1-5.6) x10^6/uL Hgb (12.5-18.0) g/dL Hct (42-50) % MCV (78-100) fL MCH (26-32) pg MCHC (32-36) g/dL RDW (11.5-14.0) % Plt Count (150-450) x10^3/uL MPV (7.5-11.0) fL Sodium (135-145) mmol/L Potassium (3.5-5.1) mmol/L Chloride (98-107) mmol/L Carbon Dioxide (22-30) mmol/L Anion Gap (5-15) MEQ/L BUN (9-20) mg/dL Creatinine (0.66-1.25) mg/dL Estimated GFR ML/MIN Glucose (74-106) mg/dL Calcium (8.4-10.2) mg/dL Total Bilirubin (0.2-1.3) mg/dL AST (17-59) U/L ALT (0-50) U/L Alkaline Phosphatase (38-126) U/L Troponin I (0.000-0.033) ng/mL Serum Total Protein (6.3-8.2) g/dL Albumin (3.5-5.0) g/dL Folic Acid Cancelled TSH 3rd Generation 0.462 L (0.470-4.680) mIU/L Stl Occult Blood (IFOB) NEGATIVE (NEGATIVE) 01/09/24 01/09/24 01/09/24 Range/Units 04:40 04:40 04:40 WBC 5.2 (4.0-10.5) x10^3/uL RBC 3.33 L (4.1-5.6) x10^6/uL Hgb 8.6 L (12.5-18.0) g/dL Hct 27.2 L (42-50) % MCV 81.7 (78-100) fL MCH 25.8 L (26-32) pg MCHC 31.6 L (32-36) g/dL RDW 14.6 H (11.5-14.0) % Plt Count 267 (150-450) x10^3/uL MPV 9.0 (7.5-11.0) fL Sodium 132 L (135-145) mmol/L Potassium 4.2 (3.5-5.1) mmol/L Chloride 97 L (98-107) mmol/L Carbon Dioxide 30 (22-30) mmol/L Anion Gap 8.6 (5-15) MEQ/L BUN 28 H (9-20) mg/dL Creatinine 1.46 H (0.66-1.25) mg/dL Estimated GFR 49.2 ML/MIN Glucose 100 (74-106) mg/dL Calcium 8.5 (8.4-10.2) mg/dL Total Bilirubin 0.70 (0.2-1.3) mg/dL AST 72 H (17-59) U/L ALT 104 H (0-50) U/L Alkaline Phosphatase 448 H (38-126) U/L Troponin I 0.019 (0.000-0.033) ng/mL Serum Total Protein 5.8 L (6.3-8.2) g/dL Albumin 2.6 L (3.5-5.0) g/dL Folic Acid TSH 3rd Generation (0.470-4.680) mIU/L Stl Occult Blood (IFOB) (NEGATIVE) Radiology Exams: Radiology Procedures Category Date Time Status PULMONARY PERF VENTILATION [NUCMED] Routine Exams 01/08/24 09:28 Completed US ABDOMEN LIMITED [ABDOMINAL-LIMITED] [US] Routine Exams 01/08/24 09:26 Completed Multi-Disciplinary Progress Notes: Multi-Disciplinary Progress Notes 01/09/24 10:36 Case Management Note by Jessica Carlos [facility] UPDATED AND STILL AGREEABLE TO GO AT THIS TIME Initialized on 01/09/24 10:36 - END OF NOTE 01/09/24 07:25 Pharmacy Note by Armen Akins. worse today. Estimated crcl is 46ml/min. Will decrease Merrem to q12h per renal dosing policy. Initialized on 01/09/24 07:25 - END OF NOTE 01/08/24 14:07 Case Management Note by Jessica Carlos PAPERWORK COMPLETE- NO LEVEL II REQUIRED [facility] AND WILL INITIATE PRECERT- THIS WILL NEED COMPLETED BEFORE PATIENT CAN DC Initialized on 01/08/24 14:07 - END OF NOTE 01/08/24 12:41 OT Plan of Care Note by Nishi Oreilly OT Eval OT Inpatient Eval and POC Start: 01/07/24 16:47 Freq: ROUTINE Status: Complete Protocol: Created 01/07/24 16:48 [facility] (Rec: 01/07/24 16:48 [id number]) Document 01/08/24 12:23 K[facility] (Rec: 01/08/24 12:41 KA [id number]) OT Evaluation Subjective Patient is agreeable to OT evaluation, but just completed mobility with PT; therefore, he requests to no engage in any mobility or transfer assessments. Pertinent Past Medical History Pacemaker, CHF, heart transplant, arrhythmias, GERD, IBS, CKD, obesity, COPD. In past month, he has been hospitalized at [facility]; discharged on December 27 to home (refused rehab) with weakness, pneumonia, and C-DIFF. Patient reports 2 falls at home requiring assist from neighbors for 1 then called EMS with second fall. His spouse has been assisting with some ADLs but unable to help with transfers. Prior Level of Function Indpendent with ADLS, mows lawn (3 acres), drives, and assists with home management as needed. Equipment at Home Prior to Admission Walker,Shower Chair Home Setup [id number],Standard Height Toilet Date 01/08/24 Feeding WFL Comment Set Up Assist Grooming WFL Comment Set up assist and seated Bathing Impaired Comment UB: Min assist LB: Mod assist Dressing Impaired Comment UB: min assist LB: mod assist Toileting Impaired Comment Min Assist IADLS (If indicated) Homemaking,etc Impaired Bed Mobility Impaired Toilet Transfers Impaired Functional Transfers Impaired Range of Motion WFL Comment BUE ROM WFL; however, reports chronic shoulder pain and limitations Coordination WFL Functional Strength RUE: shoulder flex and abduction: 4 -/5 MMT Shoulder ext and add: 4+/5 Elbow flex: 4/5 Elbow ext:4-/5 Left UE: Shoulder flexion and abduction : 4-/5 shoulder extension and adduction:4+/5 Elbow flex: 4/5 Elbow ext: 4+/5 bilateral forearm pronation/ supination: 4/5 Functional Endurance Poor (+): Patient reports he is only able to tolerate a few minutes of standing with the walker before his shoulders and hips give out. Cognition Alert and oriented x 4 Pain No reported pain Objective Data/Standardized Assessment(s Ashley index of independence in ) ADLs: 09/09 indiciating low level of independence Comment Patient's O2 sats remained above 90% on 5LPM and venti mask; however, shortness of breath noted througout occupational profile. Per chart review, patient noted with O2 desat during toileting event where he was not wearing oxygen throughout his toileting task. He has been on 5liters of O2 since then. OT Plan Of Care Date of Evaluation 01/08/24 Treatment Diagnosis Weakness, PNX Teaching Recipient Patient Patient is Aware of Diagnosis and Yes Prognosis Patient is receptive to Plan of Care and Yes contributory towards OT goals Functional Problem List Don presents with significant weakness, decreased activity tolerance, poor breathing techniques, and debility limiting independence with ADLs and functional transfers. Therapuetic Interventions ADLs, therapeutic activity, therapeutic exercise Functional Goals of Treatment 1.) Within 1 week, Don will complete grooming tasks mod INDEP while maintain O2 sats above 90%. 2) Within 1 week, Don will engage in HEP and all discharge instructions independently. 3) Within 1 week, Don will complete functional transfers with SBA in order to engage in 1 ADL task such as toileting, dressing, and/or grooming with SBA. Frequency/Duration 5x/week Rehabilitation Potential for Goals/ Good Barriers to Progress Discharge Recommendations/Plan OT recommends additional rehabilitation services upon inpatient discharge at SNF, and to provide additional nursing care in order to facilitate safe rehabilitation and d/c home. Initialized on 01/08/24 12:41 - END OF NOTE Assessment/Plan (1) Pneumonia Current Visit: Yes Status: Acute Qualifiers: Pneumonia type: due to unspecified organism Laterality: bilateral Lung location: lower lobe of lung Qualified Code(s): J18.9 - Pneumonia, unspecified organism Code(s): J18.9 - PNEUMONIA, UNSPECIFIED ORGANISM (2) Weakness Current Visit: Yes Status: Acute Code(s): R53.1 - WEAKNESS (3) Clostridium difficile colitis Current Visit: Yes Status: Acute Code(s): A04.72 - ENTEROCOLITIS D/T CLOSTRIDIUM DIFFICILE, NOT SPCF RECUR (4) Acute on chronic renal failure Current Visit: Yes Status: Acute Code(s): N17.9 - ACUTE KIDNEY FAILURE, UNSPECIFIED; N18.9 - CHRONIC KIDNEY DISEASE, UNSPECIFIED (5) CHF (congestive heart failure) Current Visit: Yes Status: Chronic Code(s): I50.9 - HEART FAILURE, UNSPECIFIED (6) Obesity (BMI 30-39.9) Current Visit: Yes Status: Acute Code(s): E66.9 - OBESITY, UNSPECIFIED (7) Thrush Current Visit: Yes Status: Acute Code(s): B37.0 - CANDIDAL STOMATITIS (8) D-dimer, elevated Current Visit: Yes Status: Acute Code(s): R79.89 - OTHER SPECIFIED ABNORMAL FINDINGS OF BLOOD CHEMISTRY (9) Anemia Current Visit: Yes Status: Acute Qualifiers: Anemia type: iron deficiency Iron deficiency anemia type: unspecified iron deficiency Qualified Code(s): D50.9 - Iron deficiency anemia, unspecified Code(s): D64.9 - ANEMIA, UNSPECIFIED (10) COPD (chronic obstructive pulmonary disease) Current Visit: Yes Status: Chronic (11) Hyponatremia Current Visit: Yes Status: Acute Code(s): E87.1 - HYPO-OSMOLALITY AND HYPONATREMIA (12) Abnormal AST and ALT Current Visit: Yes Status: Acute Assessment & Plan: (1) Pneumonia Current Visit: Yes Status: Acute Qualifiers: Pneumonia type: due to unspecified organism Laterality: bilateral Lung location: lower lobe of lung Qualified Code(s): J18.9 - Pneumonia, unspecified organism Assessment & Plan: - Continue Merrem IV, duonebs - + wheezing - Chest XR pending - coughing clear sputum production - BC x2 pending - continue daily steroid dose as he was taking OP 5/6 - Pt was down to 3lNC overnight. He became SOB this am and had to be placed on 5L oxymizer. - CXR 01/06 2 view chest demonstrates developing borderline cardiomegaly, pulmonary edema, and tiny left effusion favoring cardiac decompensation/CHF. Superimposed pneumonia not complete excluded. Bony thorax intact again with osteopenia, degenerative changes, sternotomy wires, and right AICD. 01/08 - SOB improved - 4lNC - IS - sputum culture as sputum now green per pt Code(s): J18.9 - PNEUMONIA, UNSPECIFIED ORGANISM (2) Weakness Current Visit: Yes Status: Acute Assessment & Plan: - 2:2 Pneumonia and recent C-dif infection with recent hospitalization - PT/OT eval - Pt spouse would like rehab placement 01/08 - awaiting precert for rehb placement- case management working on this Code(s): R53.1 - WEAKNESS (3) Clostridium difficile colitis Current Visit: Yes Status: Acute Assessment & Plan: - Dx at recent hospital stay at [facility] - Continue oral vancomycin - episode of diarrhea this AM - contact isolation precautions 01/07 - C-dif testing negative - remove from isolation - Continue oral Vancomycin course until complete. Code(s): A04.72 - ENTEROCOLITIS D/T CLOSTRIDIUM DIFFICILE, NOT SPCF RECUR (4) Acute on chronic renal failure Current Visit: Yes Status: Acute Assessment & Plan: - Creat 1.44- BL 1.28 - hold lasix and entresto for now. 01/07 - Creat 1.36- improved - did have to give 1x dose of IV Lasix today d/t increased SOB and CXR shows CHF decompensation 01/08 - Creat 1.46- likely worse 2:2 lasix IV gave yesterday- trend Code(s): N17.9 - ACUTE KIDNEY FAILURE, UNSPECIFIED; N18.9 - CHRONIC KIDNEY DISEASE, UNSPECIFIED (5) CHF (congestive heart failure) Current Visit: Yes Status: Chronic Assessment & Plan: - On 5lNC, BL 2lNC - Chest XR pending - BNP 4210 - no recent echo to review - IVF stopped from ER - no edema - hold entresto and lasix for now d/t NOHEMY - Continue coreg - Cellcept and potassium chloride on hold from cardilogy. Pt maximo needs potassium when taking Lasix and this is on hold as well. 01/07 - As seen on CXR- see results above - did have to give 1x dose of IV Lasix today d/t increased SOB and CXR shows CHF decompensation Code(s): I50.9 - HEART FAILURE, UNSPECIFIED (6) Obesity (BMI 30-39.9) Current Visit: Yes Status: Acute Assessment & Plan: - advised heart healthy diet and exercise control when feeling better. Code(s): E66.9 - OBESITY, UNSPECIFIED (7) Thrush Current Visit: Yes Status: Acute Assessment & Plan: - Continue clotrimazole - Pt states he was dx with this at recent hospital stay. 01/07 - improved Code(s): B37.0 - CANDIDAL STOMATITIS (8) D-dimer, elevated Current Visit: Yes Status: Acute Assessment & Plan: - D-dimer 3.33 - VQ scan in AM unless NOHEMY improves. - Therapeutic Lovenox 01/07 - VQ scan : negative for PE Code(s): R79.89 - OTHER SPECIFIED ABNORMAL FINDINGS OF BLOOD CHEMISTRY (9) Anemia Current Visit: Yes Status: Acute Assessment & Plan: - iron panel - Hgb 9.7- trend - Occult stool - Possibly 2:2 CKD 01/07 - Labs show iron def anemia- chronic - Continue oral ferrous sulfate - Stool occult- negative - Hgb 9.4- trend 01/08 - Hgb 8.6 Code(s): D64.9 - ANEMIA, UNSPECIFIED (10) COPD (chronic obstructive pulmonary disease) Current Visit: Yes Status: Chronic Assessment & Plan: - + wheezing - on 5lNC today, baseline 2lNC - no acute exacerbation 01/07 - O2 down to 3lNC overnight, increased O2 demand this Am and back up to 5L - Wheezing improved from yesterday - Continue duonebs, steriods, breo 01/08 - 4lNC -91% (11) Hyponatremia Current Visit: Yes Status: Acute Assessment & Plan: - Mild 134- trend 01/08 - Na+ 132 Code(s): E87.1 - HYPO-OSMOLALITY AND HYPONATREMIA (12) Abnormal AST and ALT Current Visit: Yes Status: Acute Assessment & Plan: - 01/06 AST 86, ALT 119, alk phos 475- 2:2 infection - 01/07 AST 86. ALT 75, Alk phos 475- improved - Denies abd pain - US abd: Impression: Large right renal cysts. Cholecystectomy. Remaining right upper quadrant sonogram is negative 01/08 - AST 72, ALT, 104, alk phos 448- improving VTE: Lovenox Next of KIN: D/C plan:pending placement Code status: Full Code(s): R74.8 - ABNORMAL LEVELS OF OTHER SERUM ENZYMES (13) Renal cyst, acquired, right Current Visit: Yes Status: Acute Assessment & Plan: - Will need OP urology f/u OP for further evaluation Code(s): N28.1 - CYST OF KIDNEY, ACQUIRED
[2024-01-09] MEDS: OCEAN Nasal Spray NS PRN (12:06)
[2024-01-09] MEDS: Merrem 1 GM in Sodium Chloride 100ML MINI-BAG PLUS 100 ML IV SCH (18:57)
[2024-01-10 06:03] LABS: Hematocrit 29.4 % (42-50); Hemoglobin 9.5 g/dL (12.5-18.0); Mean Cell Volume 81.7 fL (78-100); Mean Corpuscular Hemoglobin 26.4 pg (26-32); Mean Corpuscular Hgb Concent. 32.3 g/dL (32-36); Mean Platelet Volume 9.5 fL (7.5-11.0); Platelet Count 289 x10^3/uL (150-450); Red Cell Distribution Width 14.7 % (11.5-14.0); White Blood Count 6.8 x10^3/uL (4.0-10.5)
[2024-01-10 06:12] LABS: ANION GAP 10.2 MEQ/L (5-15); BILIRUBIN,TOTAL 0.7 mg/dL (0.2-1.3); Creatinine 1 1.32 mg/dL (0.66-1.25); EST GLOMERULAR FILTRATION RATE 55.6 ML/MIN; Potassium 4.3 mmol/L (3.5-5.1); Total Protein 6.3 g/dL (6.3-8.2)
[2024-01-10] MEDS: Lasix 20 MG/2 ML IV ONE (09:26)
[2024-01-10] MEDS: LASIX 20 MG PO ONE (09:43)
--- NOTE | 2024-01-10 11:02 | XRAY ---
Indication: Short of breath. Comparison: January 07, 2024 Portable chest again demonstrates mild pulmonary edema with diminished cardiomegaly and diminished left effusion. New mild right base infiltrate/atelectasis. Remaining chest unchanged again with incidental tiny left lung calcified granuloma, CABG surgery, and right pacemaker.
--- NOTE | 2024-01-10 13:54 | PCM.NOTE ---
Date and Time: 01/10/24 1335 Subjective Assessment: 01/07/24 is a 78 year old male with PMHX of pacemaker, CHF, heart transplant, arrhythmias, GERD, irritable bowel, Iron deficiency anemia, CKD, obesity, and COPD with baseline 2LO2 at all times. Patient complains of weakness and SOB for the past few days. Patient was discharged from [facility] on 12/28/2023 with pneumonia and c-diff. Patient states he was went to the restroom, had a bought of diarrhea, got weak and slid down on the floor. Patient denies pain or discomfort. He reports having diarrhea every other day and loose. Lungs noted to have wheezing throughout. He states he also fell 2 days ago in his garage and fell straight to the ground. He reports not injuring anything. Merrem and 1 L NS gave in the ER. Per she is unable to help him as she has become exhausted. Pt and spouse would like rehab placement for weakness. He reports normally being able to walk with a cane but now too weak to do so. He denies CP, Abd. pain, N/V. 01/08/24 Pt resting in bed. He has continued weakness. Stool was soft this am and c-dif testing negative. However, will continue oral Vancomycin treatment course until complete. Pt unable to tolerate lower dose of O2 and became SOB this am. Oxygen increased to 5L oxymizer. Pt is pending a VQ scan for further evaluation of SOB and elevated d-dimer. Pt does have known pneumonia will continue Merrem as has increased oxygen demand since most recent d/c from other hospital. AST and ALT remain elevated will order US for further evaluation. He denies CP, abd.pain, N/V. 01/09/24 Pt sitting up in the chair. He is feeling much better. He is c/o nasal congestion and a dry cough. Saline nasal spray added PRN per request. Discussed US, CXR, and VQ results that were completed yesterday with pt and spouse. Discussed pt will need Op f/u with urology for further evaluation of cyst on right kidney. Continue antibiotics, steroids, duonebs. Pt denies CP, abd. pain, N/V/D. 01/10/24 Pt resting in bed. He did have some increased SOB last night and now up to 6lNC. BNP 5190, PO lasix gave x1. Pt is refusing and IV. He will need to d/c with Lasix PRN PO. CXR shows mild pulmonary edema with diminished cardiomegaly and diminished left effusion. New mild right base infiltrate/atelectasis. IV merrem stopped as refuses a new IV. Changed to PO antibiotics. Sputum sample pending. Still awaiting rehab approval. Pt denies Cp, abd. pain, N/V/D. - Review of Systems Constitutional: Weakness, No Fever, No Chills Eyes: No Symptoms Ears, Nose, & Throat: No Symptoms Respiratory: Short Of Breath, No Cough Cardiac: No Chest Pain, No Edema, No Syncope Abdominal/Gastrointestinal: No Abdominal Pain, No Nausea, No Vomiting, No Diarrhea Genitourinary Symptoms: No Dysuria Musculoskeletal: No Back Pain, No Neck Pain Skin: No Rash Neurological: No Dizziness, No Focal Weakness, No Sensory Changes Psychological: No Symptoms Endocrine: No Symptoms Hematologic/Lymphatic: No Symptoms Immunological/Allergic: No Symptoms Objective Exam General Appearance: no apparent distress, alert, obese Neurologic Exam: alert, oriented x 3, cooperative, normal mood/affect, nml cerebellar function, sensation nml, motor weakness, No motor deficits Skin Exam: normal color, warm, dry Eye Exam: PERRL, EOMI, eyes nml inspection Ears, Nose, Throat Exam: normal ENT inspection, pharynx normal, moist mucous membranes Neck Exam: normal inspection, non-tender, supple, full range of motion Respiratory Exam: normal breath sounds, lungs clear, No respiratory distress Cardiovascular Exam: regular rate/rhythm, normal heart sounds Gastrointestinal/Abdomen Exam: soft, No tenderness, No mass Extremity Exam: normal inspection, normal range of motion Back Exam: normal inspection, normal range of motion, No CVA tenderness, No vertebral tenderness Male Genitalia Exam: deferred Rectal Exam: deferred Objective Data Vital Signs: Vital Signs - 24 hr Temp Pulse Resp BP Pulse Ox 01/10/24 12:21 92 H 18 95 01/10/24 11:40 98.2 F 81 20 122/59 95 01/10/24 07:35 98.7 F 91 H 17 160/74 99 01/10/24 07:08 91 H 18 99 01/10/24 05:59 93 L 01/10/24 04:00 98.0 F 83 24 175/78 91 L 01/10/24 00:00 97.8 F 77 22 148/70 93 L 01/09/24 19:57 99.1 F 89 18 138/63 91 L 01/09/24 19:42 90 20 91 L 01/09/24 16:00 97.8 F 94 H 17 131/63 91 L Pain Assessment - Last Documented Pain Intensity 8 Pain Scale Used 0-10 Pain Scale Intake and Output: Intake & Output 01/08/24 01/09/24 01/10/24 01/11/24 11:59 11:59 11:59 11:59 Intake Total 2179 840 2060 Output Total 1200 2300 1450 Balance 979 -1460 610 Weight 116 kg Lab Results: Lab Results-Last 24 Hours 01/10/24 01/10/24 01/10/24 Range/Units 05:50 05:50 08:14 WBC 6.8 (4.0-10.5) x10^3/uL RBC 3.60 L (4.1-5.6) x10^6/uL Hgb 9.5 L (12.5-18.0) g/dL Hct 29.4 L (42-50) % MCV 81.7 (78-100) fL MCH 26.4 (26-32) pg MCHC 32.3 (32-36) g/dL RDW 14.7 H (11.5-14.0) % Plt Count 289 (150-450) x10^3/uL MPV 9.5 (7.5-11.0) fL Sodium 133 L (135-145) mmol/L Potassium 4.3 (3.5-5.1) mmol/L Chloride 97 L (98-107) mmol/L Carbon Dioxide 30 (22-30) mmol/L Anion Gap 10.2 (5-15) MEQ/L BUN 27 H (9-20) mg/dL Creatinine 1.32 H (0.66-1.25) mg/dL Estimated GFR 55.6 ML/MIN Glucose 95 (74-106) mg/dL Calcium 9.0 (8.4-10.2) mg/dL Phosphorus 3.6 (2.5-4.5) mg/dL Total Bilirubin 0.70 (0.2-1.3) mg/dL AST 77 H (17-59) U/L ALT 109 H (0-50) U/L Alkaline Phosphatase 492 H (38-126) U/L NT-Pro-B Natriuret Pep (<300) pg/mL Serum Total Protein 6.3 (6.3-8.2) g/dL Albumin 3.0 L (3.5-5.0) g/dL 01/10/24 Range/Units 08:18 WBC (4.0-10.5) x10^3/uL RBC (4.1-5.6) x10^6/uL Hgb (12.5-18.0) g/dL Hct (42-50) % MCV (78-100) fL MCH (26-32) pg MCHC (32-36) g/dL RDW (11.5-14.0) % Plt Count (150-450) x10^3/uL MPV (7.5-11.0) fL Sodium (135-145) mmol/L Potassium (3.5-5.1) mmol/L Chloride (98-107) mmol/L Carbon Dioxide (22-30) mmol/L Anion Gap (5-15) MEQ/L BUN (9-20) mg/dL Creatinine (0.66-1.25) mg/dL Estimated GFR ML/MIN Glucose (74-106) mg/dL Calcium (8.4-10.2) mg/dL Phosphorus (2.5-4.5) mg/dL Total Bilirubin (0.2-1.3) mg/dL AST (17-59) U/L ALT (0-50) U/L Alkaline Phosphatase (38-126) U/L NT-Pro-B Natriuret Pep 5190 (<300) pg/mL Serum Total Protein (6.3-8.2) g/dL Albumin (3.5-5.0) g/dL Radiology Exams: Radiology Procedures Category Date Time Status CHEST 1 VIEW (PORTABLE) Routine Exams 01/10/24 10:04 Completed Multi-Disciplinary Progress Notes: Multi-Disciplinary Progress Notes 01/10/24 07:01 (created 01/10/24 07:17) Respiratory Note by Lauren Rice Patient placed on O2 at 6lpm per NC after treatment. Patient states he is feeling nauseous and feels like he might throw up. Initialized on 01/10/24 07:17 - END OF NOTE 01/10/24 04:39 Respiratory Note by Deann Pickard RT called to patient bedside for low SpO2. SpO2 upon arrival was 88%-89%. Pt reports no SOB, breathsounds are clear throughout bilateral lung cummings. Pt refuses neb tx at this time. O2 was increased from 3L to 4L. SpO2 increased to 90-92% on 4L nasal cannula. RN notified of increase in O2. Initialized on 01/10/24 04:39 - END OF NOTE 01/09/24 16:55 Occupational Therapy Note by Da(L#[id number])Maday Occupational Therapy Treatment Note [id number] Patient supine in bed and had just used urinal with [employer]. He was agreeable to treatment session this date with plan being to walk to sink and perform hygiene to wash his face in standing. Don completed bed mobility to sit EOB with CGA and required MIN-MOD A to maintain upright seated position as patient unable to maintain himself this date. He presented with backward and right-side lean req'ing MOD A to correct and achieve midline, upright sitting. He completed scooting toward head of bed x3 with CGA and sit>supine with MOD A for BLE management. Patient denied dizziness and demo'd no slurred or changed speech patterns and stated "I just feel very weak." OTR notified nursing staff and PT. OTR instructed patient in pursed lip breathing techniques and he demo'd good carryover with verbal instruction. He then completed grooming/hygiene to wash his face with setup in supine. Patient supine in bed with call light and be dside table with necessities within reach at end of treatment session. Will continue to see patient daily throughout stay. OTR continues to recommend Rehab Stay to address functional strength, activity tolerance, and independence and safety with I/ADLs. Initialized on 01/09/24 16:55 - END OF NOTE 01/09/24 14:56 Physical Therapy Note by Zaira(L#[id number])Sophie PT. WAS SEEN BY PGerda THIS A.M. ON 3 L O2 AND IV SITE PRESENT. SPOUSE IN ROOM DURING TX. PT. REPORTS HE HAD SAT UP IN CHAIR FOR 3 HOURS THIS A.M. C/O FEELING COLD WELL. HESITANTLY AGREED TO P.T. W/ SPOUSAL ENCOURAGEMENT. PT. PERFORMED SUPINE LE EX'S OF ANKLE PUMPS,HEEL SLIDES, AND QUAD SETS X 10 REPS. PERFORMED SUPINE TO SIT W/ CGA-MIN ASSIST. ASSISTED PT. W/ JEANETTE ALEXANDER. SIT TO STAND PERFORMED W/ CGA-MIN ASSIST. PT. AMBULATED ~ 50' IN ROOM W/ RW AND CGA-MIN ASSIST ON 3 L O2. JUDY DECREASED TO 87% AFTER WALK. PT. REQUIRES MANY V.C. W/ EX'S AND FUNCTIONAL MOBILITY TO PERFORM PURSED LIP BREATHING HE TENDS TO BREATHE THROUGH HIS MOUTH. PT. NOTED INTERSCAPULAR PN AFTER WALKING WHICH HE REPORTS HAS BEEN OCCURRING OF LATE. PT. ABLE TO BRUSH HIS TEETH W/ SET-UP. AGREED TO SIT UP FOR LUNCH. NOTED SOME COUGHING AFTER TRANSFER. AWAITING PA FROM INSURANCE FOR REHAB STAY AT [facility]. WILL CONT. P.T. 5X/WK UNTIL D/C TO ADDRESS FUNCTIONAL DEFICITS AND DECREASED ACTIVITY TOLERANCE. Initialized on 01/09/24 14:56 - END OF NOTE Assessment/Plan (1) Pneumonia Current Visit: Yes Status: Acute Qualifiers: Pneumonia type: due to unspecified organism Laterality: bilateral Lung location: lower lobe of lung Qualified Code(s): J18.9 - Pneumonia, unspecified organism Code(s): J18.9 - PNEUMONIA, UNSPECIFIED ORGANISM (2) Weakness Current Visit: Yes Status: Acute Code(s): R53.1 - WEAKNESS (3) Clostridium difficile colitis Current Visit: Yes Status: Acute Code(s): A04.72 - ENTEROCOLITIS D/T CLOSTRIDIUM DIFFICILE, NOT SPCF RECUR (4) Acute on chronic renal failure Current Visit: Yes Status: Acute Code(s): N17.9 - ACUTE KIDNEY FAILURE, UNSPECIFIED; N18.9 - CHRONIC KIDNEY DISEASE, UNSPECIFIED (5) CHF (congestive heart failure) Current Visit: Yes Status: Chronic Code(s): I50.9 - HEART FAILURE, UNSPECIFIED (6) Obesity (BMI 30-39.9) Current Visit: Yes Status: Acute Code(s): E66.9 - OBESITY, UNSPECIFIED (7) Thrush Current Visit: Yes Status: Acute Code(s): B37.0 - CANDIDAL STOMATITIS (8) D-dimer, elevated Current Visit: Yes Status: Acute Code(s): R79.89 - OTHER SPECIFIED ABNORMAL FINDINGS OF BLOOD CHEMISTRY (9) Anemia Current Visit: Yes Status: Acute Qualifiers: Anemia type: iron deficiency Iron deficiency anemia type: unspecified iron deficiency Qualified Code(s): D50.9 - Iron deficiency anemia, unspecified Code(s): D64.9 - ANEMIA, UNSPECIFIED (10) COPD (chronic obstructive pulmonary disease) Current Visit: Yes Status: Chronic (11) Hyponatremia Current Visit: Yes Status: Acute Code(s): E87.1 - HYPO-OSMOLALITY AND HYPONATREMIA (12) Abnormal AST and ALT Current Visit: Yes Status: Acute Code(s): R74.8 - ABNORMAL LEVELS OF OTHER SERUM ENZYMES (13) Renal cyst, acquired, right Current Visit: Yes Status: Acute Assessment & Plan: (1) Pneumonia Current Visit: Yes Status: Acute Qualifiers: Pneumonia type: due to unspecified organism Laterality: bilateral Lung location: lower lobe of lung Qualified Code(s): J18.9 - Pneumonia, unspecified organism Assessment & Plan: - Continue Merrem IV, duonebs - + wheezing - Chest XR pending - coughing clear sputum production - BC x2 pending - continue daily steroid dose as he was taking OP 5/6 - Pt was down to 3lNC overnight. He became SOB this am and had to be placed on 5L oxymizer. - CXR 01/06 2 view chest demonstrates developing borderline cardiomegaly, pulmonary edema, and tiny left effusion favoring cardiac decompensation/CHF. Superimposed pneumonia not complete excluded. Bony thorax intact again with osteopenia, degenerative changes, sternotomy wires, and right AICD. 01/08 - SOB improved - 4lNC - IS - sputum culture as sputum now green per pt 01/09 - 6LNC - PO lasix x1 - Pt refusing IV, is went bad last night per nursing - CXR Portable chest again demonstrates mild pulmonary edema with diminished cardiomegaly and diminished left effusion. New mild right base infiltrate/atelectasis. Remaining chest unchanged again with incidental tiny left lung calcified granuloma, CABG surgery, and right pacemaker. - IV antibiotics changed to Levaquin as refusing IV Code(s): J18.9 - PNEUMONIA, UNSPECIFIED ORGANISM (2) Weakness Current Visit: Yes Status: Acute Assessment & Plan: - 2:2 Pneumonia and recent C-dif infection with recent hospitalization - PT/OT eval - Pt spouse would like rehab placement 01/08 - awaiting precert for rehab placement- case management working on this 01/09 - Continued weakness, awaiting precert for rehab Code(s): R53.1 - WEAKNESS (3) Clostridium difficile colitis Current Visit: Yes Status: Acute Assessment & Plan: - Dx at recent hospital stay at [facility] - Continue oral vancomycin - episode of diarrhea this AM - contact isolation precautions 01/07 - C-dif testing negative - remove from isolation - Continue oral Vancomycin course until complete. Code(s): A04.72 - ENTEROCOLITIS D/T CLOSTRIDIUM DIFFICILE, NOT SPCF RECUR (4) Acute on chronic renal failure Current Visit: Yes Status: Acute Assessment & Plan: - Creat 1.44- BL 1.28 - hold lasix and entresto for now. 01/07 - Creat 1.36- improved - did have to give 1x dose of IV Lasix today d/t increased SOB and CXR shows CHF decompensation 01/08 - Creat 1.46- likely worse 2:2 lasix IV gave yesterday- trend 01/09 - Creat 1.32- improved - did give 1 X dose of po lasix today Code(s): N17.9 - ACUTE KIDNEY FAILURE, UNSPECIFIED; N18.9 - CHRONIC KIDNEY DISEASE, UNSPECIFIED (5) CHF (congestive heart failure) Current Visit: Yes Status: Chronic Assessment & Plan: - On 5lNC, BL 2lNC - Chest XR pending - BNP 4210 - no recent echo to review - IVF stopped from ER - no edema - hold entresto and lasix for now d/t NOHEMY - Continue coreg - Cellcept and potassium chloride on hold from cardilogy. Pt maximo needs potassium when taking Lasix and this is on hold as well. 01/07 - As seen on CXR- see results above - did have to give 1x dose of IV Lasix today d/t increased SOB and CXR shows CHF decompensation 01/08 - see CXR above - 6LNC - did give 1 X dose of po lasix today - Will need Lasix PO rx at d/c PRN Code(s): I50.9 - HEART FAILURE, UNSPECIFIED (6) Obesity (BMI 30-39.9) Current Visit: Yes Status: Acute Assessment & Plan: - advised heart healthy diet and exercise control when feeling better. Code(s): E66.9 - OBESITY, UNSPECIFIED (7) Thrush Current Visit: Yes Status: Acute Assessment & Plan: - Continue clotrimazole - Pt states he was dx with this at recent hospital stay. 01/07 - improved Code(s): B37.0 - CANDIDAL STOMATITIS (8) D-dimer, elevated Current Visit: Yes Status: Acute Assessment & Plan: - D-dimer 3.33 - VQ scan in AM unless NOHEMY improves. - Therapeutic Lovenox 01/07 - VQ scan : negative for PE Code(s): R79.89 - OTHER SPECIFIED ABNORMAL FINDINGS OF BLOOD CHEMISTRY (9) Anemia Current Visit: Yes Status: Acute Assessment & Plan: - iron panel - Hgb 9.7- trend - Occult stool - Possibly 2:2 CKD 01/07 - Labs show iron def anemia- chronic - Continue oral ferrous sulfate - Stool occult- negative - Hgb 9.4- trend 01/08 - Hgb 8.6 01/09 - hgb stable 9.5 Code(s): D64.9 - ANEMIA, UNSPECIFIED (10) COPD (chronic obstructive pulmonary disease) Current Visit: Yes Status: Chronic Assessment & Plan: - + wheezing - on 5lNC today, baseline 2lNC - no acute exacerbation 01/07 - O2 down to 3lNC overnight, increased O2 demand this Am and back up to 5L - Wheezing improved from yesterday - Continue duonebs, steriods, breo 01/08 - 4lNC -91% 01/09 - 6lNC- 95% - Lungs clear (11) Hyponatremia Current Visit: Yes Status: Acute Assessment & Plan: - Mild 134- trend 01/08 - Na+ 132 01/09 - Na+ 133- mild Code(s): E87.1 - HYPO-OSMOLALITY AND HYPONATREMIA (12) Abnormal AST and ALT Current Visit: Yes Status: Acute Assessment & Plan: - 01/06 AST 86, ALT 119, alk phos 475- 2:2 infection - 01/07 AST 86. ALT 75, Alk phos 475- improved - Denies abd pain - US abd: Impression: Large right renal cysts. Cholecystectomy. Remaining right upper quadrant sonogram is negative 01/08 - AST 72, ALT, 104, alk phos 448- improving 01/09 - AST 77, ALT 109, ALk phos 792- Will need OP f/u with GI Code(s): R74.8 - ABNORMAL LEVELS OF OTHER SERUM ENZYMES (13) Renal cyst, acquired, right Current Visit: Yes Status: Acute Assessment & Plan: - Will need OP urology f/u OP for further evaluation VTE: Lovenox Next of KIN: D/C plan:pending placement Code status: Full Code(s): N28.1 - CYST OF KIDNEY, ACQUIRED
[2024-01-10] MEDS: Levofloxacin 250MG Tablet PO SCH (14:51)
--- NOTE | 2024-01-10 15:38 | PCM.DS ---
Discharge Summary Date of Admission: 01/07/24 15:42 Date of Discharge: 01/10/24 Admitting Physician: JOCELYN BENAVIDES MD Primary Care Provider: ARIADNA SOLORZANO Allergies Allergies No Known Drug Allergies Allergy (Verified 01/07/24 16:00) Hospital Summary - Hospital Course Hospital Course: 01/07/24 is a 78 year old male with PMHX of pacemaker, CHF, heart transplant, arrhythmias, GERD, irritable bowel, Iron deficiency anemia, CKD, obesity, and COPD with baseline 2LO2 at all times. Patient complains of weakness and SOB for the past few days. Patient was discharged from [facility] on 12/28/2023 with pneumonia and c-diff. Patient states he was went to the restroom, had a bought of diarrhea, got weak and slid down on the floor. Patient denies pain or discomfort. He reports having diarrhea every other day and loose. Lungs noted to have wheezing throughout. He states he also fell 2 days ago in his garage and fell straight to the ground. He reports not injuring anything. Merrem and 1 L NS gave in the ER. Per she is unable to help him as she has become exhausted. Pt and spouse would like rehab placement for weakness. He reports normally being able to walk with a cane but now too weak to do so. He denies CP, Abd. pain, N/V. 01/08/24 Pt resting in bed. He has continued weakness. Stool was soft this am and c-dif testing negative. However, will continue oral Vancomycin treatment course until complete. Pt unable to tolerate lower dose of O2 and became SOB this am. Oxygen increased to 5L oxymizer. Pt is pending a VQ scan for further evaluation of SOB and elevated d-dimer. Pt does have known pneumonia will continue Merrem as has increased oxygen demand since most recent d/c from other hospital. AST and ALT remain elevated will order US for further evaluation. He denies CP, abd.pain, N/V. 01/09/24 Pt sitting up in the chair. He is feeling much better. He is c/o nasal congestion and a dry cough. Saline nasal spray added PRN per request. Discussed US, CXR, and VQ results that were completed yesterday with pt and spouse. Discussed pt will need Op f/u with urology for further evaluation of cyst on right kidney. Continue antibiotics, steroids, duonebs. Pt denies CP, abd. pain, N/V/D. 01/10/24 Pt resting in bed. He did have some increased SOB last night and now up to 6lNC. BNP 5190, PO lasix gave x1. Pt is refusing and IV. He will need to d/c with Lasix PRN PO. CXR shows mild pulmonary edema with diminished cardiomegaly and diminished left effusion. New mild right base infiltrate/atelectasis. IV merrem stopped as refuses a new IV. Changed to PO antibiotics. Sputum sample pending. Rehab called with approval for admission this afternoon. Pt denies Cp, abd. pain, N/V/D. - Vitals & Intake/Output Vital Signs: Vital Signs Temperature 98.2 F 01/10/24 11:40 Pulse Rate 92 H 01/10/24 12:21 Respiratory Rate 18 01/10/24 12:21 Blood Pressure 122/59 01/10/24 11:40 O2 Sat by Pulse Oximetry 95 01/10/24 12:21 Intake & Output: Intake & Output 01/08/24 01/09/24 01/10/24 01/11/24 11:59 11:59 11:59 11:59 Intake Total 2179 840 2060 Output Total 1200 2300 1450 Balance 979 -1460 610 Weight 116 kg - Lab Result Diagrams: 01/10/24 05:50 01/10/24 05:50 Lab Results-Last 24 Hrs: Lab Results-Last 24 Hours 01/10/24 01/10/24 01/10/24 Range/Units 05:50 05:50 08:14 WBC 6.8 (4.0-10.5) x10^3/uL RBC 3.60 L (4.1-5.6) x10^6/uL Hgb 9.5 L (12.5-18.0) g/dL Hct 29.4 L (42-50) % MCV 81.7 (78-100) fL MCH 26.4 (26-32) pg MCHC 32.3 (32-36) g/dL RDW 14.7 H (11.5-14.0) % Plt Count 289 (150-450) x10^3/uL MPV 9.5 (7.5-11.0) fL Sodium 133 L (135-145) mmol/L Potassium 4.3 (3.5-5.1) mmol/L Chloride 97 L (98-107) mmol/L Carbon Dioxide 30 (22-30) mmol/L Anion Gap 10.2 (5-15) MEQ/L BUN 27 H (9-20) mg/dL Creatinine 1.32 H (0.66-1.25) mg/dL Estimated GFR 55.6 ML/MIN Glucose 95 (74-106) mg/dL Calcium 9.0 (8.4-10.2) mg/dL Phosphorus 3.6 (2.5-4.5) mg/dL Total Bilirubin 0.70 (0.2-1.3) mg/dL AST 77 H (17-59) U/L ALT 109 H (0-50) U/L Alkaline Phosphatase 492 H (38-126) U/L NT-Pro-B Natriuret Pep (<300) pg/mL Serum Total Protein 6.3 (6.3-8.2) g/dL Albumin 3.0 L (3.5-5.0) g/dL 01/10/24 Range/Units 08:18 WBC (4.0-10.5) x10^3/uL RBC (4.1-5.6) x10^6/uL Hgb (12.5-18.0) g/dL Hct (42-50) % MCV (78-100) fL MCH (26-32) pg MCHC (32-36) g/dL RDW (11.5-14.0) % Plt Count (150-450) x10^3/uL MPV (7.5-11.0) fL Sodium (135-145) mmol/L Potassium (3.5-5.1) mmol/L Chloride (98-107) mmol/L Carbon Dioxide (22-30) mmol/L Anion Gap (5-15) MEQ/L BUN (9-20) mg/dL Creatinine (0.66-1.25) mg/dL Estimated GFR ML/MIN Glucose (74-106) mg/dL Calcium (8.4-10.2) mg/dL Phosphorus (2.5-4.5) mg/dL Total Bilirubin (0.2-1.3) mg/dL AST (17-59) U/L ALT (0-50) U/L Alkaline Phosphatase (38-126) U/L NT-Pro-B Natriuret Pep 5190 (<300) pg/mL Serum Total Protein (6.3-8.2) g/dL Albumin (3.5-5.0) g/dL Micro Results-Entire Visit: Microbiology 01/07/24 10:50 Blood Culture - Preliminary Blood 01/07/24 10:34 Blood Culture - Preliminary Blood - Radiology Exams Ordered Rad Exams-Entire Visit: Radiology Procedures Category Date Time Status CHEST 1 VIEW (PORTABLE) Routine Exams 01/10/24 10:04 Completed - Procedures and Test Procedures and Tests throughout Hospitalization: Therapy Orders & Screens 01/07/24 14:12 Oxygen Nasal Cannula 2 lpm Comment: 01/07/24 16:47 PT Eval & Treat ( Order) ONCE Reason for Eval:: weakness, eval rehab placement Diagnosis: weakness, Pneumonia, CAD OT Eval and Treat (MD Order) ROUTINE Comment: Physician Instructions: Reason For Exam: Diagnosis: weakness, Pneumonia, CAD 01/07/24 17:07 Respiratory Therapy Assessment DAILY Comment: Diagnosis: weakness, Pneumonia, CAD 01/07/24 18:00 RT Screen per Nursing Assess ONCE Comment: Protocol Order Physician Instructions: Greater than 3 points order RT Admission Screen Reason For Exam: Triggered on Admission Diagnosis: weakness, Pneumonia, CAD Diagnosis: weakness, Pneumonia, CAD Pneumonia: Yes Home O2: Yes Asthma: No CHF: Yes: PRIOR TO TRANSPLANT Home CPAP/BIPAP: Yes: DOESNT WEAR AT HOME Home Nebs/MDI: Yes Total Points: 21 01/08/24 06:23 RT Miscellaneous Order ROUTINE Comment: Physician Instructions: Reason For Exam: wean O2 to baseline 2 LNC Diagnosis: weakness, Pneumonia, CAD 01/08/24 06:24 Incentive Spirometry Q1H Comment: Diagnosis: weakness, Pneumonia, CAD 01/08/24 08:00 PT Screen per Nursing Assess ONCE Comment: Protocol Order Physician Instructions: Greater than 3 points order PT Admission Screenin Reason For Exam: Triggered on Admission Diagnosis: weakness, Pneumonia, CAD Open Wound/Cellutlitis/Pressure Ulcers: No Acute Fx/ORIF/Change in wt bearing status: No Severe MUSCULOSKELETAL pain: No ADL Dysfunction: Yes Acute CVA w/Hemiparesis/Hemiplegia: No Decreased Functional Mobility/Strength: Yes Sprain/Strain: No Acute Post-op Mobility Dysfunction: No Total Points: 4 ST Screen per Nursing Assess ONCE Comment: Protocol Order Physician Instructions: Greater than [address] Admission Screening Reason For Exam: Triggered on Admission Diagnosis: weakness, Pneumonia, CAD CVA/Dyshpagia/Aphasia: No Cognitive Deficits: No Dehydration/Nutrition Deficit: No Reflux: No Oral-Motor Difficulties: No Pneumonia: Yes Longterm Resident: No Total Points: 5 01/08/24 10:30 EKG ONCE Comment: Diagnosis: weakness, Pneumonia, CAD 01/10/24 02:10 Respiratory MDI BID Comment: Diagnosis: weakness, Pneumonia, CAD Discharge Exam General Appearance: no apparent distress, alert, obese Neurologic Exam: alert, oriented x 3, cooperative, normal mood/affect, nml cerebellar function, sensation nml, motor weakness, No motor deficits Eye Exam: PERRL, EOMI, eyes nml inspection Ears, Nose, Throat Exam: normal ENT inspection, pharynx normal, moist mucous membranes Neck Exam: normal inspection, non-tender, supple, full range of motion Respiratory Exam: normal breath sounds, lungs clear, No respiratory distress Cardiovascular Exam: regular rate/rhythm, normal heart sounds Gastrointestinal/Abdomen Exam: soft, No tenderness, No mass Male Genitalia Exam: deferred Rectal Exam: deferred Back Exam: normal inspection, normal range of motion, No CVA tenderness, No vertebral tenderness Extremity Exam: normal inspection, normal range of motion Skin Exam: normal color, warm, dry Final Diagnosis/Problem List - Final Discharge Diagnosis/Problem (1) Pneumonia Current Visit: Yes Status: Acute Code(s): J18.9 - PNEUMONIA, UNSPECIFIED ORGANISM (2) Weakness Current Visit: Yes Status: Acute Code(s): R53.1 - WEAKNESS (3) Clostridium difficile colitis Current Visit: Yes Status: Acute Code(s): A04.72 - ENTEROCOLITIS D/T CLOSTRIDIUM DIFFICILE, NOT SPCF RECUR (4) Acute on chronic renal failure Current Visit: Yes Status: Acute Code(s): N17.9 - ACUTE KIDNEY FAILURE, UNSPECIFIED; N18.9 - CHRONIC KIDNEY DISEASE, UNSPECIFIED (5) CHF (congestive heart failure) Current Visit: Yes Status: Chronic Code(s): I50.9 - HEART FAILURE, UNSPECIFIED (6) Obesity (BMI 30-39.9) Current Visit: Yes Status: Acute Code(s): E66.9 - OBESITY, UNSPECIFIED (7) Thrush Current Visit: Yes Status: Acute Code(s): B37.0 - CANDIDAL STOMATITIS (8) D-dimer, elevated Current Visit: Yes Status: Acute Code(s): R79.89 - OTHER SPECIFIED ABNORMAL FINDINGS OF BLOOD CHEMISTRY (9) Anemia Current Visit: Yes Status: Acute Code(s): D64.9 - ANEMIA, UNSPECIFIED (10) COPD (chronic obstructive pulmonary disease) Current Visit: Yes Status: Chronic (11) Hyponatremia Current Visit: Yes Status: Acute Code(s): E87.1 - HYPO-OSMOLALITY AND HYPONATREMIA (12) Abnormal AST and ALT Current Visit: Yes Status: Acute Code(s): R74.8 - ABNORMAL LEVELS OF OTHER SERUM ENZYMES (13) Renal cyst, acquired, right Current Visit: Yes Status: Acute Assessment & Plan: (1) Pneumonia Current Visit: Yes Status: Acute Qualifiers: Pneumonia type: due to unspecified organism Laterality: bilateral Lung location: lower lobe of lung Qualified Code(s): J18.9 - Pneumonia, unspecified organism Assessment & Plan: - Continue Merrem IV, duonebs - + wheezing - Chest XR pending - coughing clear sputum production - BC x2 pending - continue daily steroid dose as he was taking OP 5 - Pt was down to 3lNC overnight. He became SOB this am and had to be placed on 5L oxymizer. - CXR 01/06 2 view chest demonstrates developing borderline cardiomegaly, pulmonary edema, and tiny left effusion favoring cardiac decompensation/CHF. Superimposed pneumonia not complete excluded. Bony thorax intact again with osteopenia, degenerative changes, sternotomy wires, and right AICD. 01/08 - SOB improved - 4lNC - IS - sputum culture as sputum now green per pt 01/09 - 6LNC - PO lasix x1 - Pt refusing IV, is went bad last night per nursing - CXR Portable chest again demonstrates mild pulmonary edema with diminished cardiomegaly and diminished left effusion. New mild right base infiltrate/atelectasis. Remaining chest unchanged again with incidental tiny left lung calcified granuloma, CABG surgery, and right pacemaker. - IV antibiotics changed to Levaquin as refusing IV Code(s): J18.9 - PNEUMONIA, UNSPECIFIED ORGANISM (2) Weakness Current Visit: Yes Status: Acute Assessment & Plan: - 2:2 Pneumonia and recent C-dif infection with recent hospitalization - PT/OT eval - Pt spouse would like rehab placement 01/08 - awaiting precert for rehab placement- case management working on this 01/09 - Continued weakness, awaiting precert for rehab Code(s): R53.1 - WEAKNESS (3) Clostridium difficile colitis Current Visit: Yes Status: Acute Assessment & Plan: - Dx at recent hospital stay at [facility] - Continue oral vancomycin - episode of diarrhea this AM - contact isolation precautions 01/07 - C-dif testing negative - remove from isolation - Continue oral Vancomycin course until complete. Code(s): A04.72 - ENTEROCOLITIS D/T CLOSTRIDIUM DIFFICILE, NOT SPCF RECUR (4) Acute on chronic renal failure Current Visit: Yes Status: Acute Assessment & Plan: - Creat 1.44- BL 1.28 - hold lasix and entresto for now. 01/07 - Creat 1.36- improved - did have to give 1x dose of IV Lasix today d/t increased SOB and CXR shows CHF decompensation 01/08 - Creat 1.46- likely worse 2:2 lasix IV gave yesterday- trend 01/09 - Creat 1.32- improved - did give 1 X dose of po lasix today Code(s): N17.9 - ACUTE KIDNEY FAILURE, UNSPECIFIED; N18.9 - CHRONIC KIDNEY DISEASE, UNSPECIFIED (5) CHF (congestive heart failure) Current Visit: Yes Status: Chronic Assessment & Plan: - On 5lNC, BL 2lNC - Chest XR pending - BNP 4210 - no recent echo to review - IVF stopped from ER - no edema - hold entresto and lasix for now d/t NOHEMY - Continue coreg - Cellcept and potassium chloride on hold from cardilogy. Pt maximo needs potassium when taking Lasix and this is on hold as well. 01/07 - As seen on CXR- see results above - did have to give 1x dose of IV Lasix today d/t increased SOB and CXR shows CHF decompensation 01/08 - see CXR above - 6LNC - did give 1 X dose of po lasix today - Will need Lasix PO rx at d/c PRN Code(s): I50.9 - HEART FAILURE, UNSPECIFIED (6) Obesity (BMI 30-39.9) Current Visit: Yes Status: Acute Assessment & Plan: - advised heart healthy diet and exercise control when feeling better. Code(s): E66.9 - OBESITY, UNSPECIFIED (7) Thrush Current Visit: Yes Status: Acute Assessment & Plan: - Continue clotrimazole - Pt states he was dx with this at recent hospital stay. 01/07 - improved Code(s): B37.0 - CANDIDAL STOMATITIS (8) D-dimer, elevated Current Visit: Yes Status: Acute Assessment & Plan: - D-dimer 3.33 - VQ scan in AM unless NOHEMY improves. - Therapeutic Lovenox 01/07 - VQ scan : negative for PE Code(s): R79.89 - OTHER SPECIFIED ABNORMAL FINDINGS OF BLOOD CHEMISTRY (9) Anemia Current Visit: Yes Status: Acute Assessment & Plan: - iron panel - Hgb 9.7- trend - Occult stool - Possibly 2:2 CKD 01/07 - Labs show iron def anemia- chronic - Continue oral ferrous sulfate - Stool occult- negative - Hgb 9.4- trend 01/08 - Hgb 8.6 01/09 - hgb stable 9.5 Code(s): D64.9 - ANEMIA, UNSPECIFIED (10) COPD (chronic obstructive pulmonary disease) Current Visit: Yes Status: Chronic Assessment & Plan: - + wheezing - on 5lNC today, baseline 2lNC - no acute exacerbation 01/07 - O2 down to 3lNC overnight, increased O2 demand this Am and back up to 5L - Wheezing improved from yesterday - Continue duonebs, steriods, breo 01/08 - 4lNC -91% 01/09 - 6lNC- 95% - Lungs clear (11) Hyponatremia Current Visit: Yes Status: Acute Assessment & Plan: - Mild 134- trend 01/08 - Na+ 132 01/09 - Na+ 133- mild Code(s): E87.1 - HYPO-OSMOLALITY AND HYPONATREMIA (12) Abnormal AST and ALT Current Visit: Yes Status: Acute Assessment & Plan: - 01/06 AST 86, ALT 119, alk phos 475- 2:2 infection - 01/07 AST 86. ALT 75, Alk phos 475- improved - Denies abd pain - US abd: Impression: Large right renal cysts. Cholecystectomy. Remaining right upper quadrant sonogram is negative 01/08 - AST 72, ALT, 104, alk phos 448- improving 01/09 - AST 77, ALT 109, ALk phos 792- Will need OP f/u with GI Code(s): R74.8 - ABNORMAL LEVELS OF OTHER SERUM ENZYMES (13) Renal cyst, acquired, right Current Visit: Yes Status: Acute Assessment & Plan: - Will need OP urology f/u OP for further evaluation Code(s): N28.1 - CYST OF KIDNEY, ACQUIRED - Discharge Discharge Date: 01/10/24 Disposition: Home, Self-Care Condition: Fair Prescriptions: New Levofloxacin [Levofloxacin 250MG Tablet] 750 mg PO DAILY 5 Days #5 tablet Continue Ferrous Sulfate 325 mg PO BID Prednisone 5 mg [Deltasone 5 mg] 5 mg PO DAILY Mycophenolate Mofetil [Cellcept] 2 tab PO BID Gabapentin [Neurontin ] 600 mg PO TID PRN PRN Reason: Pain Potassium Chloride [Klor-Con M10] 10 meq PO DAILY PRN PRN PRN Reason: replacement Furosemide 40 mg [Lasix 40 MG] 20 mg PO DAILY PRN PRN PRN Reason: swelling Aspirin [Aspirin EC] 81 mg PO DAILY Sirolimus [Rapamune] 1 mg PO DAILY Clotrimazole 10 mg MM TID Vancomycin HCl [Vancomycin HCl Capsule] 125 mg PO QID Keanu/D3/Mag11/Zinc/Healthcare Applications Analyst/Rogelio/Bor [Caltrate 600+D Plus Tablet] 1 tab PO BID Atorvastatin Calcium [Lipitor] 20 mg PO HS Albuterol Common Canister [Ventolin Common Canister] 2 puff IH QID PRN PRN Reason: Shortness Of Breath/Wheezing carvediloL [Carvedilol] 25 mg PO BID HydrALAzine HCL 25 MG TAB [Apresoline 25 MG TABLET] 25 mg PO BID Sacubitril/Valsartan [Entresto 97 mg-103 mg Tablet] 1 tab PO BID Tamsulosin HCl 0.4 mg [Flomax 0.4 MG] 0.4 mg PO DAILY Ezetimibe 10 mg [Zetia 10 MG] 1 tab PO HS Vibegron [Gemtesa] 75 mg PO DAILY Fluticasone/Vilanterol [Fluticasone-Vilanterol 200-25] 1 puff IH DAILY Multivitamin [Multi-Vitamin Daily] 1 tab PO DAILY Additional Instructions: SENIOR LIVING ORDERS: HEART HEALTHY DIET OXYGEN AT 4L/NC PT/OT EVAL AND TREAT WILL NEED TO FOLLOW UP WITH UROLOGY REGARDING CYST Will need GI follow up for elevated liver enzymes and alk phos elevated OP. SEE ATTACHED MED LIST Follow up with: ARIADNA SOLORZANO MD [Primary Care Provider] -
[2024-01-10 17:13] VITALS: BP 142/66; PULSE 82; RESP 20; TEMP 98.3; O2SAT 96
[2024-01-11 08:13] LABS: HBsAg Screen Negative (Negative); HCV Ab Non Reactive (Non Reactive); Hep A Ab, IgM Negative (Negative); Hep B Core Ab, IgM Negative (Negative)
== END 2024-01-10 17:10 | disposition home or self-care (01) ==
LOC: ED 09:51 → MED SURG 15:42
PROVIDERS: ADMIT Internal Medicine; ATTEND Internal Medicine
DX: J18.9 Pneumonia, unspecified organism (principal); R53.1 Weakness; A04.72 Enterocolitis due to Clostridium difficile, not specified as recurrent; N17.9 Acute kidney failure, unspecified; N18.9 Chronic kidney disease, unspecified; I50.9 Heart failure, unspecified; E66.9 Obesity, unspecified; B37.0 Candidal stomatitis; R79.89 Other specified abnormal findings of blood chemistry; D64.9 Anemia, unspecified; I51.9 Heart disease, unspecified; J44.9 Chronic obstructive pulmonary disease, unspecified; E87.1 Hypo-osmolality and hyponatremia; R74.8 Abnormal levels of other serum enzymes; N28.1 Cyst of kidney, acquired; R19.7 Diarrhea, unspecified; Z94.1 Heart transplant status; I25.2 Old myocardial infarction; Z79.899 Other long term (current) drug therapy; Z99.81 Dependence on supplemental oxygen
CPT/HCPCS: 0241U; 36000; 36415; 71045; 71046; 76705; 78582; 80053; 80074; 82607; 82728; 82746; 82805; 83540; 83550; 83605; 83735; 83880; 83970; 84100; 84443; 84484; 85025; 85027; 85379; 85610; 87040; 87493; 93005; 93041; 93268; 94640; 94760; 94762; 97110; 97161; 97165; 97530; 99285; 99291; A9540; A9567; G0328; G0378; Q3014; 82274; J1650; J1940; A9270-GY